=== PATIENT | female | born 1950 | race Caucasian/White ===

== ENCOUNTER 2017-12-28 19:59 | Inpatient (IN) | payer MEDICARE, OTHER ==
[~2017-12-28] VITALS: Ht 160 cm; Wt 85.5 kg
[~2017-12-28 19:59] MED LIST: ACET325 PO; ACIDOPHILUS; ALPR.25; ALPR.5 PO; ARIP30 PO; AZIT500 PO; BELPHEELB PO; BUPR150T2; BUSP15 PO; CALCAVITD; CIPRSO OD; DEXL60CA3; DICL25ER PO; DOCU100 PO; EPIN.3I; ESCI20; FEXO180; FIBE4P; FLUO10; FLUO10 PO; HYDACE5; HYDACE5 PO; HYDCHL25 PO; HYDMOR4 PO; HYOS.375ER; LEVA.63IS INH; LEVO750 PO; LUNESTA; NEUPRO1 EAC1; NITR.4SL; NITR.4SL SL; NITRSPRAY; OMEP20ER; PRAM.125; PRAM.5; PRAM.5 PO; PROM25 PO; RANI150 PO; SIMV10 PO; STOOL SOFTENER50 MG PO; TOCO400 PO; TRAZ50; URSODIOL250 MG PO; VICODIN 5-3001 EACH; VICODIN 5-3001 EACH PO; VIIBRYD10 MG PO; VITAMIN D31000 UNIT PO; Veramyst10 GM NS; ZOLP6.25; ZOLP6.25 PO; Zofran Odt8 MG SL; [UNRECOGNIZED DRUG - REMARK]
[2017-12-28] MEDS ORDERED: PANT20 PO (20:06)
[2017-12-28] MEDS ORDERED: VENL37.5ER PO (20:07)
[2017-12-28 20:13] LABS: BASOPHILS ABSOLUTE AUTO 0.01 K/mm3 (0.00-0.23); BASOPHILS PERCENT AUTO 0 % (0-2); EOSINOPHILS ABSOLUTE AUTO 0.06 K/mm3 (0.00-0.68); EOSINOPHILS PERCENT AUTO 1 % (0-6); Hematocrit 41.1 % (33.0-51.0); Hemoglobin 12.9 g/dL (11.5-16.0); IMMATURE GRAN ABSOLUTE AUTO 0.01 K/mm3 (0.00-0.10); IMMATURE GRAN PERCENT AUTO 0 % (0-1); LYMPHOCYTES ABSOLUTE AUTO 0.89 K/mm3 (0.84-5.20); LYMPHOCYTES PERCENT AUTO 11 % (21-46); MONOCYTES ABSOLUTE AUTO 0.12 K/mm3 (0.16-1.47); MONOCYTES PERCENT AUTO 2 % (4-13); Mean Corpuscular HGB 28.6 pg (26.0-34.0); Mean Corpuscular HGB Conc 31.4 g/dL (31.5-36.5); Mean Corpuscular Volume 91 fL (80-100); Mean Platelet Volume 8.9 fL (9.1-12.4); NEUTROPHILS ABSOLUTE AUTO 7.17 K/mm3 (1.96-9.15); NEUTROPHILS PERCENT AUTO 87 % (41-73); Platelet Count 299 K/mm3 (150-400); RDW Coefficient Variation 12.7 % (11.7-14.2); RDW Standard Deviation 42.3 fL (35.1-46.3); Red Blood Cell Count 4.51 M/mm3 (3.80-5.20); White Blood Cell Count 8.26 K/mm3 (4.00-11.30)
[2017-12-28 20:37] LABS: Alanine Aminotransfer (ALT/SGP 14 U/L (12-78); Albumin, Blood 3.5 g/dL (3.4-5.0); Albumin/Globulin Ratio 0.9 (0.8-1.8); Alk Phos 85 U/L (50-136); Anion Gap 10 mmol/L (6-16); Aspartate Aminotrans (AST/SGOT 13 U/L (12-37); Bilirubin, Total 0.3 mg/dL (0.1-1.0); Blood Urea Nitrogen 8 mg/dL (8-24); Bun/Creatinine Ratio 11.4 (12.0-20.0); CO2, Blood 26 mmol/L (21-32); Calcium, Blood 8.7 mg/dL (8.5-10.1); Chloride, Blood 104 mmol/L (98-108); Glomerular Filtration Rate >60 (60-); Glucose, Blood 108 mg/dL (70-99); Potassium, Blood 3.7 mmol/L (3.5-5.5); Sodium, Blood 140 mmol/L (136-145); Total Protein, Blood 7.5 g/dL (6.4-8.2); Troponin I <0.015 ng/mL (0.000-0.040)
[2017-12-28 21:42] LABS: Source, Urine Voided
[2017-12-28 21:47] LABS: Bilirubin, Urine Neg (Neg); Blood, Urine 1+ (Neg); Glucose Qualitative, Urine Neg (Neg); Ketones, Urine Neg (Neg); Leukocyte Esterase, Urine 2+ (Neg); Nitrite, Urine Neg (Neg); Protein, Urine 1+ (Neg); Urobilinogen, Urine NORM (Normal)
[2017-12-28 21:52] LABS: Appearance, Urine Clear (Clear); Color, Urine Yellow (P-Yellow); Red Blood Cells, Urine 0-2 /hpf (0-2)
[2017-12-28 21:53] LABS: Bacteria Many /hpf; Squamous Epithelial Cells Few /hpf (Few)
[2017-12-28 22:18] LABS: Influenza A Negative (NEGATIVE); Influenza B Negative (NEGATIVE)
[2017-12-29 03:35] LABS: BASOPHILS ABSOLUTE AUTO 0.02 K/mm3 (0.00-0.23); BASOPHILS PERCENT AUTO 0 % (0-2); Hematocrit 31.2 % (33.0-51.0); Hemoglobin 9.8 g/dL (11.5-16.0); LYMPHOCYTES ABSOLUTE AUTO 0.57 K/mm3 (0.84-5.20); LYMPHOCYTES PERCENT AUTO 4 % (21-46); MONOCYTES ABSOLUTE AUTO 0.92 K/mm3 (0.16-1.47); MONOCYTES PERCENT AUTO 6 % (4-13); Mean Corpuscular HGB 28.7 pg (26.0-34.0); Mean Corpuscular HGB Conc 31.4 g/dL (31.5-36.5); Mean Corpuscular Volume 91 fL (80-100); Mean Platelet Volume 9.3 fL (9.1-12.4); Platelet Count 256 K/mm3 (150-400); RDW Coefficient Variation 12.9 % (11.7-14.2); RDW Standard Deviation 42.5 fL (35.1-46.3); Red Blood Cell Count 3.42 M/mm3 (3.80-5.20)
[2017-12-29 03:38] LABS: EOSINOPHILS PERCENT AUTO 0 % (0-6); IMMATURE GRAN ABSOLUTE AUTO 0.08 K/mm3 (0.00-0.10); IMMATURE GRAN PERCENT AUTO 1 % (0-1); NEUTROPHILS ABSOLUTE AUTO 14.31 K/mm3 (1.96-9.15); NEUTROPHILS PERCENT AUTO 90 % (41-73)
[2017-12-29 03:50] LABS: Anion Gap 8 mmol/L (6-16); Blood Urea Nitrogen 10 mg/dL (8-24); CO2, Blood 25 mmol/L (21-32); Calcium, Blood 7.3 mg/dL (8.5-10.1); Chloride, Blood 109 mmol/L (98-108); Creatinine, Blood 0.71 mg/dL (0.40-1.00); Glomerular Filtration Rate >60 (60-); Glucose, Blood 114 mg/dL (70-99); Potassium, Blood 3.9 mmol/L (3.5-5.5); Sodium, Blood 142 mmol/L (136-145)
[2017-12-29 03:52] LABS: BAND PERCENT MAN 24 % (0-8); BASOPHILS PERCENT MAN 0 % (0-2); EOSINOPHILS PERCENT MAN 0 % (0-6); LYMPHOCYTES ABSOLUTE MAN 1.11 K/mm3 (0.84-5.20); LYMPHOCYTES PERCENT MAN 7 % (21-46); MONOCYTES ABSOLUTE MAN 0.31 K/mm3 (0.16-1.47); MONOCYTES PERCENT MAN 2 % (4-13); NEUTROPHILS ABSOLUTE MAN 14.46 K/mm3 (1.96-9.15); SEG NEUTROPHILS PERCENT MAN 67 % (41-73); TOTAL CELLS COUNTED 100
[2017-12-30 12:24] LABS: Vancomycin, Trough 12.8 ug/mL (5.0-10.0)
[2017-12-31 10:54] LABS: Creatinine, Blood 0.67 mg/dL (0.40-1.00)
[2018-01-01 05:55] LABS: BASOPHILS ABSOLUTE AUTO 0.02 K/mm3 (0.00-0.23); BASOPHILS PERCENT AUTO 0 % (0-2); EOSINOPHILS ABSOLUTE AUTO 0.27 K/mm3 (0.00-0.68); EOSINOPHILS PERCENT AUTO 4 % (0-6); Hematocrit 30.5 % (33.0-51.0); Hemoglobin 9.9 g/dL (11.5-16.0); IMMATURE GRAN ABSOLUTE AUTO 0.04 K/mm3 (0.00-0.10); IMMATURE GRAN PERCENT AUTO 1 % (0-1); LYMPHOCYTES ABSOLUTE AUTO 1.35 K/mm3 (0.84-5.20); LYMPHOCYTES PERCENT AUTO 18 % (21-46); MONOCYTES ABSOLUTE AUTO 0.49 K/mm3 (0.16-1.47); MONOCYTES PERCENT AUTO 7 % (4-13); Mean Corpuscular HGB 28.9 pg (26.0-34.0); Mean Corpuscular HGB Conc 32.5 g/dL (31.5-36.5); Mean Corpuscular Volume 89 fL (80-100); Mean Platelet Volume 9.5 fL (9.1-12.4); NEUTROPHILS ABSOLUTE AUTO 5.26 K/mm3 (1.96-9.15); NEUTROPHILS PERCENT AUTO 71 % (41-73); Platelet Count 283 K/mm3 (150-400); RDW Coefficient Variation 12.8 % (11.7-14.2); RDW Standard Deviation 41.9 fL (35.1-46.3); Red Blood Cell Count 3.42 M/mm3 (3.80-5.20); White Blood Cell Count 7.43 K/mm3 (4.00-11.30)
[2018-01-01 06:20] LABS: Alanine Aminotransfer (ALT/SGP 8 U/L (12-78); Albumin, Blood 2.4 g/dL (3.4-5.0); Albumin/Globulin Ratio 0.6 (0.8-1.8); Alk Phos 59 U/L (50-136); Anion Gap 6 mmol/L (6-16); Aspartate Aminotrans (AST/SGOT 12 U/L (12-37); Bilirubin, Total 0.5 mg/dL (0.1-1.0); Blood Urea Nitrogen 5 mg/dL (8-24); Bun/Creatinine Ratio 6.8 (12.0-20.0); CO2, Blood 30 mmol/L (21-32); Calcium, Blood 8.8 mg/dL (8.5-10.1); Chloride, Blood 106 mmol/L (98-108); Creatinine, Blood 0.73 mg/dL (0.40-1.00); Globulin, Blood 3.9 g/dL (2.2-4.0); Glomerular Filtration Rate >60 (60-); Glucose, Blood 86 mg/dL (70-99); Potassium, Blood 3.6 mmol/L (3.5-5.5); Sodium, Blood 142 mmol/L (136-145); Total Protein, Blood 6.3 g/dL (6.4-8.2)
[2018-01-01] MEDS ORDERED: AMOCLA500 PO (11:56)
[2018-08-24] MEDS ORDERED: PRED10 PO (10:18)
[2018-08-24] MEDS ORDERED: DIPH50 PO (10:20)
[2018-08-24] MEDS ORDERED: METO25ER PO (10:20)
== END 2018-01-01 12:46 | disposition home or self-care (01) | DRG 871 ==
LOC: ER 19:59 → MEDS 21:42 → ICUW 21:42 → ERHOLD 21:42 → ICUW 23:38 → MEDS 12-30 17:19 → ENPENDDIS 01-01 11:54 → MEDS 01-01 12:46
PROVIDERS: Hospitalist; Internal Medicine; Pharmacist; Physician Assistant
DX: A41.9 Sepsis, unspecified organism (principal); J18.9 Pneumonia, unspecified organism; I95.9 Hypotension, unspecified; J45.909 Unspecified asthma, uncomplicated; K21.9 Gastro-esophageal reflux disease without esophagitis; G25.81 Restless legs syndrome; F41.9 Anxiety disorder, unspecified; R65.20 Severe sepsis without septic shock; Z88.2 Allergy status to sulfonamides; Z88.8 Allergy status to other drugs, medicaments and biological substances; Z79.899 Other long term (current) drug therapy; Z87.891 Personal history of nicotine dependence
CPT/HCPCS: 36415; 51702; 71046; 80048; 80053; 80202; 81001; 82565; 83605; 83880; 84484; 85025; 87040; 87070; 87086; 87205; 87804; 93005; 93010; 94640; 94760; 96361; 96365; 96375; 99285; C9113; J1170; J1650; J1885; J2405; J2543; J3370; J3480; J7030; J7120

== ENCOUNTER → 2018-01-06 | Outpatient (CLI) | payer MEDICARE, OTHER ==
[~2018-01-06] MED LIST changes: +ALLER-TEC D 5-1 EACH PO; +AMOCLA500 PO; +Augmentin 875-1 EACH PO; +CALCIUM WITH V1 EACH PO; +CEFP200 PO; +Calcium 600 Wi1 EAC3 PO; +DIPH50 PO; +METO25ER PO; +METR500 PO; +ONDA4ODT MM; +PANT20 PO; +PRED10 PO; +PROBIOTIC250 MG PO; +RYTARY ER 23.71 EACH PO; +VENL37.5ER PO; +VENL75ER PO; +Voltaren100 GM TOP; +Xopenex Hfa15 GM INH
== END ==
LOC: LAB EV 18:29
DX: R30.0 Dysuria (principal)
CPT/HCPCS: 87077; 87086; 87186

== ENCOUNTER 2018-01-20 05:34 | Inpatient (IN) | payer MEDICARE, OTHER ==
[~2018-01-20] VITALS: Ht 160 cm; Wt 77.2 kg
[~2018-01-20 05:34] MED LIST changes: -ALLER-TEC D 5-1 EACH PO; -Augmentin 875-1 EACH PO; -CALCIUM WITH V1 EACH PO; -CEFP200 PO; -Calcium 600 Wi1 EAC3 PO; -DIPH50 PO; -METO25ER PO; -METR500 PO; -ONDA4ODT MM; -PRED10 PO; -PROBIOTIC250 MG PO; -RYTARY ER 23.71 EACH PO; -VENL75ER PO; -Voltaren100 GM TOP; -Xopenex Hfa15 GM INH
[2018-01-20 05:59] LABS: BASOPHILS ABSOLUTE AUTO 0.02 K/mm3 (0.00-0.23); BASOPHILS PERCENT AUTO 0 % (0-2); EOSINOPHILS ABSOLUTE AUTO 0.03 K/mm3 (0.00-0.68); EOSINOPHILS PERCENT AUTO 0 % (0-6); Hemoglobin 12.6 g/dL (11.5-16.0); IMMATURE GRAN ABSOLUTE AUTO 0.03 K/mm3 (0.00-0.10); IMMATURE GRAN PERCENT AUTO 0 % (0-1); LYMPHOCYTES ABSOLUTE AUTO 0.56 K/mm3 (0.84-5.20); LYMPHOCYTES PERCENT AUTO 5 % (21-46); MONOCYTES ABSOLUTE AUTO 0.18 K/mm3 (0.16-1.47); MONOCYTES PERCENT AUTO 2 % (4-13); Mean Corpuscular HGB 27.7 pg (26.0-34.0); Mean Corpuscular HGB Conc 31.5 g/dL (31.5-36.5); Mean Corpuscular Volume 88 fL (80-100); Mean Platelet Volume 8.9 fL (9.1-12.4); NEUTROPHILS ABSOLUTE AUTO 10.53 K/mm3 (1.96-9.15); NEUTROPHILS PERCENT AUTO 93 % (41-73); Platelet Count 384 K/mm3 (150-400); RDW Standard Deviation 41.7 fL (35.1-46.3); Red Blood Cell Count 4.55 M/mm3 (3.80-5.20); White Blood Cell Count 11.35 K/mm3 (4.00-11.30)
[2018-01-20 06:17] LABS: Source, Urine Clean Catch
[2018-01-20 06:19] LABS: Bilirubin, Urine Neg (Neg); Blood, Urine 1+ (Neg); Glucose Qualitative, Urine Neg (Neg); Ketones, Urine Neg (Neg); Leukocyte Esterase, Urine 3+ (Neg); Nitrite, Urine Neg (Neg); Protein, Urine 1+ (Neg); Urobilinogen, Urine NORM (Normal)
[2018-01-20 06:23] LABS: Alanine Aminotransfer (ALT/SGP 7 U/L (12-78); Albumin, Blood 3.3 g/dL (3.4-5.0); Albumin/Globulin Ratio 0.8 (0.8-1.8); Alk Phos 77 U/L (50-136); Anion Gap 11 mmol/L (6-16); Aspartate Aminotrans (AST/SGOT 14 U/L (12-37); Bilirubin, Total 0.5 mg/dL (0.1-1.0); Blood Urea Nitrogen 12 mg/dL (8-24); Bun/Creatinine Ratio 19.2 (12.0-20.0); CO2, Blood 23 mmol/L (21-32); Calcium, Blood 8.8 mg/dL (8.5-10.1); Chloride, Blood 103 mmol/L (98-108); Creatinine, Blood 0.63 mg/dL (0.40-1.00); Globulin, Blood 4.2 g/dL (2.2-4.0); Glomerular Filtration Rate >60 (60-); Glucose, Blood 101 mg/dL (70-99); Potassium, Blood 3.6 mmol/L (3.5-5.5); Sodium, Blood 137 mmol/L (136-145); Total Protein, Blood 7.5 g/dL (6.4-8.2); Troponin I <0.015 ng/mL (0.000-0.040)
[2018-01-20 06:27] LABS: Appearance, Urine Clear (Clear); Color, Urine Yellow (P-Yellow)
[2018-01-20] MEDS ORDERED: ONDA4ODT MM (06:27)
[2018-01-20] MEDS ORDERED: PANT20 PO (06:27)
[2018-01-20] MEDS ORDERED: PRAM.5 PO (06:27)
[2018-01-20] MEDS ORDERED: RYTARY ER 23.71 EACH PO (06:28)
[2018-01-20] MEDS ORDERED: VENL75ER PO (06:28)
[2018-01-20] MEDS ORDERED: CALCIUM WITH V1 EACH PO (06:29)
[2018-01-20] MEDS ORDERED: DOCU100 PO (06:29)
[2018-01-20 06:31] LABS: Bacteria Few /hpf; Red Blood Cells, Urine 0-2 /hpf (0-2); Squamous Epithelial Cells Mod /hpf (Few)
[2018-01-20 06:32] LABS: Mucus Light (0-Heavy)
[2018-01-20] MEDS ORDERED: ACET325 PO (06:34)
[2018-01-20] MEDS ORDERED: Xopenex Hfa15 GM INH (06:34)
[2018-01-20] MEDS ORDERED: Voltaren100 GM TOP (06:35)
[2018-01-20] MEDS ORDERED: ALLER-TEC D 5-1 EACH PO (06:37)
[2018-01-20] MEDS ORDERED: VICODIN 5-3001 EACH PO (06:40)
[2018-01-20] MEDS ORDERED: Calcium 600 Wi1 EAC3 PO (12:36)
[2018-01-21 05:22] LABS: Hematocrit 29.6 % (33.0-51.0); Hemoglobin 9.3 g/dL (11.5-16.0); Mean Corpuscular HGB Conc 31.4 g/dL (31.5-36.5); Mean Corpuscular Volume 89 fL (80-100); Mean Platelet Volume 9.4 fL (9.1-12.4); Platelet Count 273 K/mm3 (150-400); RDW Coefficient Variation 13.3 % (11.7-14.2); RDW Standard Deviation 43.4 fL (35.1-46.3); Red Blood Cell Count 3.32 M/mm3 (3.80-5.20); White Blood Cell Count 15.81 K/mm3 (4.00-11.30)
[2018-01-21 05:49] LABS: Anion Gap 7 mmol/L (6-16); Blood Urea Nitrogen 9 mg/dL (8-24); CO2, Blood 27 mmol/L (21-32); Calcium, Blood 8.3 mg/dL (8.5-10.1); Chloride, Blood 107 mmol/L (98-108); Creatinine, Blood 0.75 mg/dL (0.40-1.00); Glomerular Filtration Rate >60 (60-); Glucose, Blood 119 mg/dL (70-99); Potassium, Blood 3.4 mmol/L (3.5-5.5); Sodium, Blood 141 mmol/L (136-145)
[2018-01-22 05:01] LABS: BASOPHILS ABSOLUTE AUTO 0.03 K/mm3 (0.00-0.23); BASOPHILS PERCENT AUTO 0 % (0-2); EOSINOPHILS PERCENT AUTO 2 % (0-6); Hematocrit 30.5 % (33.0-51.0); Hemoglobin 9.9 g/dL (11.5-16.0); IMMATURE GRAN ABSOLUTE AUTO 0.05 K/mm3 (0.00-0.10); IMMATURE GRAN PERCENT AUTO 0 % (0-1); LYMPHOCYTES ABSOLUTE AUTO 1.85 K/mm3 (0.84-5.20); LYMPHOCYTES PERCENT AUTO 14 % (21-46); MONOCYTES ABSOLUTE AUTO 0.96 K/mm3 (0.16-1.47); MONOCYTES PERCENT AUTO 7 % (4-13); Mean Corpuscular HGB 28.5 pg (26.0-34.0); Mean Corpuscular HGB Conc 32.5 g/dL (31.5-36.5); Mean Corpuscular Volume 88 fL (80-100); Mean Platelet Volume 9.2 fL (9.1-12.4); NEUTROPHILS ABSOLUTE AUTO 9.91 K/mm3 (1.96-9.15); NEUTROPHILS PERCENT AUTO 76 % (41-73); Platelet Count 289 K/mm3 (150-400); RDW Coefficient Variation 13.2 % (11.7-14.2); RDW Standard Deviation 42.2 fL (35.1-46.3); Red Blood Cell Count 3.47 M/mm3 (3.80-5.20)
[2018-01-22 05:34] LABS: Anion Gap 7 mmol/L (6-16); Blood Urea Nitrogen 5 mg/dL (8-24); Bun/Creatinine Ratio 7.2 (12.0-20.0); CO2, Blood 26 mmol/L (21-32); Calcium, Blood 8.4 mg/dL (8.5-10.1); Chloride, Blood 107 mmol/L (98-108); Creatinine, Blood 0.69 mg/dL (0.40-1.00); Glomerular Filtration Rate >60 (60-); Glucose, Blood 99 mg/dL (70-99); Potassium, Blood 3.6 mmol/L (3.5-5.5); Sodium, Blood 140 mmol/L (136-145)
[2018-01-23 06:00] LABS: BASOPHILS ABSOLUTE AUTO 0.02 K/mm3 (0.00-0.23); BASOPHILS PERCENT AUTO 0 % (0-2); EOSINOPHILS ABSOLUTE AUTO 0.26 K/mm3 (0.00-0.68); EOSINOPHILS PERCENT AUTO 3 % (0-6); Hematocrit 30.5 % (33.0-51.0); IMMATURE GRAN ABSOLUTE AUTO 0.05 K/mm3 (0.00-0.10); IMMATURE GRAN PERCENT AUTO 1 % (0-1); LYMPHOCYTES ABSOLUTE AUTO 1.58 K/mm3 (0.84-5.20); LYMPHOCYTES PERCENT AUTO 18 % (21-46); MONOCYTES ABSOLUTE AUTO 0.76 K/mm3 (0.16-1.47); MONOCYTES PERCENT AUTO 9 % (4-13); Mean Corpuscular HGB 28.6 pg (26.0-34.0); Mean Corpuscular HGB Conc 32.8 g/dL (31.5-36.5); Mean Corpuscular Volume 87 fL (80-100); Mean Platelet Volume 9.7 fL (9.1-12.4); NEUTROPHILS ABSOLUTE AUTO 6.04 K/mm3 (1.96-9.15); NEUTROPHILS PERCENT AUTO 69 % (41-73); Platelet Count 285 K/mm3 (150-400); RDW Coefficient Variation 12.9 % (11.7-14.2); White Blood Cell Count 8.71 K/mm3 (4.00-11.30)
[2018-01-23 06:27] LABS: Alanine Aminotransfer (ALT/SGP 10 U/L (12-78); Albumin, Blood 2.4 g/dL (3.4-5.0); Albumin/Globulin Ratio 0.6 (0.8-1.8); Alk Phos 59 U/L (50-136); Anion Gap 11 mmol/L (6-16); Aspartate Aminotrans (AST/SGOT 9 U/L (12-37); Bilirubin, Total 0.3 mg/dL (0.1-1.0); Blood Urea Nitrogen 3 mg/dL (8-24); CO2, Blood 24 mmol/L (21-32); Chloride, Blood 108 mmol/L (98-108); Creatinine, Blood 0.75 mg/dL (0.40-1.00); Globulin, Blood 3.8 g/dL (2.2-4.0); Glomerular Filtration Rate >60 (60-); Glucose, Blood 90 mg/dL (70-99); Phosphorus, Blood 2.8 mg/dL (2.5-4.9); Potassium, Blood 3.3 mmol/L (3.5-5.5); Sodium, Blood 143 mmol/L (136-145); Total Protein, Blood 6.2 g/dL (6.4-8.2)
[2018-01-23] MEDS ORDERED: METR500 PO (14:44)
[2018-01-23] MEDS ORDERED: CEFP200 PO (14:44)
[2018-01-23] MEDS ORDERED: PROBIOTIC250 MG PO (14:45)
[2018-08-24] MEDS ORDERED: PRED10 PO (10:18)
[2018-08-24] MEDS ORDERED: DIPH50 PO (10:20)
[2018-08-24] MEDS ORDERED: METO25ER PO (10:20)
== END 2018-01-23 15:32 | disposition home or self-care (01) | DRG 871 ==
LOC: ER 05:34 → MEDS 11:29
PROVIDERS: Emergency Medicine; Hospitalist; Internal Medicine; Internal Medicine Endocrinology, Diabetes & Metabolism
DX: A41.9 Sepsis, unspecified organism (principal); J69.0 Pneumonitis due to inhalation of food and vomit; N39.0 Urinary tract infection, site not specified; K21.9 Gastro-esophageal reflux disease without esophagitis; G25.81 Restless legs syndrome; M79.7 Fibromyalgia; M85.80 Other specified disorders of bone density and structure, unspecified site; Z98.84 Bariatric surgery status; F41.9 Anxiety disorder, unspecified; B96.20 Unspecified Escherichia coli [E. coli] as the cause of diseases classified elsewhere
CPT/HCPCS: 36415; 71046; 80048; 80053; 81001; 83605; 83690; 83735; 84100; 84145; 84484; 85025; 85027; 87040; 87077; 87086; 87186; 87493; 93005; 93010; 94640; 94760; 96361; 96365; 96375; 99285; C9113; J1650; J1956; J2543; J3370; J7030

== ENCOUNTER 2018-02-04 12:38 | Inpatient (IN) | payer MEDICARE, OTHER ==
[~2018-02-04] VITALS: Ht 160 cm; Wt 76.1 kg
[~2018-02-04 12:38] MED LIST changes: +ALLER-TEC D 5-1 EACH PO; +CALCIUM WITH V1 EACH PO; +CEFP200 PO; +Calcium 600 Wi1 EAC3 PO; +METR500 PO; +ONDA4ODT MM; +PROBIOTIC250 MG PO; +RYTARY ER 23.71 EACH PO; +VENL75ER PO; +Voltaren100 GM TOP; +Xopenex Hfa15 GM INH
[2018-02-04 14:08] LABS: BASOPHILS ABSOLUTE AUTO 0.04 K/mm3 (0.00-0.23); BASOPHILS PERCENT AUTO 0 % (0-2); EOSINOPHILS ABSOLUTE AUTO 0.03 K/mm3 (0.00-0.68); EOSINOPHILS PERCENT AUTO 0 % (0-6); Hematocrit 38.4 % (33.0-51.0); Hemoglobin 12.2 g/dL (11.5-16.0); IMMATURE GRAN PERCENT AUTO 1 % (0-1); LYMPHOCYTES ABSOLUTE AUTO 0.57 K/mm3 (0.84-5.20); LYMPHOCYTES PERCENT AUTO 3 % (21-46); MONOCYTES ABSOLUTE AUTO 0.73 K/mm3 (0.16-1.47); MONOCYTES PERCENT AUTO 3 % (4-13); Mean Corpuscular HGB 28.1 pg (26.0-34.0); Mean Corpuscular HGB Conc 31.8 g/dL (31.5-36.5); Mean Corpuscular Volume 89 fL (80-100); Mean Platelet Volume 9.2 fL (9.1-12.4); NEUTROPHILS ABSOLUTE AUTO 20.53 K/mm3 (1.96-9.15); NEUTROPHILS PERCENT AUTO 92 % (41-73); Platelet Count 362 K/mm3 (150-400); RDW Coefficient Variation 13.3 % (11.7-14.2); RDW Standard Deviation 43.2 fL (35.1-46.3); Red Blood Cell Count 4.34 M/mm3 (3.80-5.20)
[2018-02-04 14:22] LABS: Source, Urine Clean Catch
[2018-02-04 14:25] LABS: Bilirubin, Urine Neg (Neg); Blood, Urine 1+ (Neg); Glucose Qualitative, Urine Neg (Neg); Ketones, Urine 1+ (Neg); Leukocyte Esterase, Urine 1+ (Neg); Nitrite, Urine Neg (Neg); Protein, Urine Neg (Neg); Specific Gravity, Urine 1.005 (1.003-1.022); Urobilinogen, Urine NORM (Normal)
[2018-02-04 14:40] LABS: Appearance, Urine Clear (Clear); Color, Urine Yellow (P-Yellow)
[2018-02-04 14:41] LABS: Mucus Light (0-Heavy)
[2018-02-04 14:42] LABS: Bacteria Rare /hpf; Red Blood Cells, Urine 0-2 /hpf (0-2); Squamous Epithelial Cells Few /hpf (Few)
[2018-02-05 05:12] LABS: BASOPHILS ABSOLUTE AUTO 0.02 K/mm3 (0.00-0.23); BASOPHILS PERCENT AUTO 0 % (0-2); EOSINOPHILS ABSOLUTE AUTO 0.22 K/mm3 (0.00-0.68); EOSINOPHILS PERCENT AUTO 2 % (0-6); Hematocrit 32.9 % (33.0-51.0); Hemoglobin 10.2 g/dL (11.5-16.0); IMMATURE GRAN ABSOLUTE AUTO 0.05 K/mm3 (0.00-0.10); IMMATURE GRAN PERCENT AUTO 0 % (0-1); LYMPHOCYTES ABSOLUTE AUTO 1.72 K/mm3 (0.84-5.20); LYMPHOCYTES PERCENT AUTO 13 % (21-46); MONOCYTES ABSOLUTE AUTO 0.53 K/mm3 (0.16-1.47); MONOCYTES PERCENT AUTO 4 % (4-13); Mean Corpuscular Volume 90 fL (80-100); Mean Platelet Volume 9.3 fL (9.1-12.4); NEUTROPHILS ABSOLUTE AUTO 10.61 K/mm3 (1.96-9.15); NEUTROPHILS PERCENT AUTO 81 % (41-73); Platelet Count 317 K/mm3 (150-400); RDW Coefficient Variation 13.2 % (11.7-14.2); RDW Standard Deviation 43.8 fL (35.1-46.3); Red Blood Cell Count 3.64 M/mm3 (3.80-5.20); White Blood Cell Count 13.15 K/mm3 (4.00-11.30)
[2018-02-05 05:51] LABS: Alanine Aminotransfer (ALT/SGP 8 U/L (12-78); Albumin, Blood 2.8 g/dL (3.4-5.0); Albumin/Globulin Ratio 0.7 (0.8-1.8); Alk Phos 61 U/L (50-136); Anion Gap 9 mmol/L (6-16); Aspartate Aminotrans (AST/SGOT 11 U/L (12-37); Bilirubin, Total 0.5 mg/dL (0.1-1.0); Blood Urea Nitrogen 9 mg/dL (8-24); Bun/Creatinine Ratio 13.5 (12.0-20.0); CO2, Blood 24 mmol/L (21-32); Calcium, Blood 8.6 mg/dL (8.5-10.1); Chloride, Blood 106 mmol/L (98-108); Creatinine, Blood 0.67 mg/dL (0.40-1.00); Globulin, Blood 3.9 g/dL (2.2-4.0); Glomerular Filtration Rate >60 (60-); Glucose, Blood 155 mg/dL (70-99); Potassium, Blood 3.5 mmol/L (3.5-5.5); Sodium, Blood 139 mmol/L (136-145); Total Protein, Blood 6.7 g/dL (6.4-8.2)
[2018-02-06] MEDS ORDERED: Augmentin 875-1 EACH PO (10:56)
== END 2018-02-06 11:17 | disposition home or self-care (01) | DRG 179 ==
LOC: ER 12:38 → MEDS 12:39 → ER 15:21 → MEDS 15:21 → ENPENDDIS 02-06 09:50 → MEDS 02-06 11:17
PROVIDERS: Emergency Medicine; Student in an Organized Health Care Education/Training Program
PROC: 3E0234Z Introduction of Serum, Toxoid and Vaccine into Muscle, Percutaneous Approach (ICD-10-PCS; principal; 2018-02-06)
DX: J69.0 Pneumonitis due to inhalation of food and vomit (principal); Z23 Encounter for immunization; K22.0 Achalasia of cardia; K21.9 Gastro-esophageal reflux disease without esophagitis; F41.9 Anxiety disorder, unspecified; I10 Essential (primary) hypertension; G25.81 Restless legs syndrome; Z98.84 Bariatric surgery status; E87.6 Hypokalemia; D72.829 Elevated white blood cell count, unspecified
CPT/HCPCS: 36415; 71045; 71046; 80053; 81001; 83690; 84145; 85025; 87086; 93005; 93010; 96367; 96374; 99285; C1751; C9113; G0378; J0295; J0456; J2543; J3370; J7030; J7050

== ENCOUNTER 2018-09-12 12:48 | Emergency (ER) | payer MEDICARE, OTHER ==
[~2018-09-12] VITALS: Ht 162.6 cm; Wt 77.1 kg
[~2018-09-12 12:48] MED LIST changes: +Augmentin 875-1 EACH PO; +DIPH50 PO; +METO25ER PO; +PRED10 PO
[2018-09-12 14:09] LABS: BASOPHILS ABSOLUTE AUTO 0.05 K/mm3 (0.00-0.23); BASOPHILS PERCENT AUTO 0 % (0-2); EOSINOPHILS ABSOLUTE AUTO 0.14 K/mm3 (0.00-0.68); EOSINOPHILS PERCENT AUTO 1 % (0-6); Hematocrit 38.3 % (33.0-51.0); IMMATURE GRAN ABSOLUTE AUTO 0.04 K/mm3 (0.00-0.10); IMMATURE GRAN PERCENT AUTO 0 % (0-1); LYMPHOCYTES ABSOLUTE AUTO 1.57 K/mm3 (0.84-5.20); LYMPHOCYTES PERCENT AUTO 14 % (21-46); MONOCYTES ABSOLUTE AUTO 0.68 K/mm3 (0.16-1.47); MONOCYTES PERCENT AUTO 6 % (4-13); Mean Corpuscular HGB Conc 31.3 g/dL (31.5-36.5); Mean Corpuscular Volume 93 fL (80-100); Mean Platelet Volume 9.3 fL (9.1-12.4); NEUTROPHILS ABSOLUTE AUTO 8.95 K/mm3 (1.96-9.15); NEUTROPHILS PERCENT AUTO 79 % (41-73); Platelet Count 306 K/mm3 (150-400); RDW Coefficient Variation 13.2 % (11.7-14.2); RDW Standard Deviation 44.7 fL (35.1-46.3); Red Blood Cell Count 4.14 M/mm3 (3.80-5.20); White Blood Cell Count 11.43 K/mm3 (4.00-11.30)
[2018-09-12 14:29] LABS: Alanine Aminotransfer (ALT/SGP 18 U/L (12-78); Albumin, Blood 3.7 g/dL (3.4-5.0); Alk Phos 92 U/L (50-136); Anion Gap 6 mmol/L (6-16); Aspartate Aminotrans (AST/SGOT 16 U/L (12-37); Bilirubin, Total 0.2 mg/dL (0.1-1.0); Blood Urea Nitrogen 11 mg/dL (8-24); Bun/Creatinine Ratio 16.7 (12.0-20.0); CO2, Blood 29 mmol/L (21-32); Calcium, Blood 9.2 mg/dL (8.5-10.1); Chloride, Blood 106 mmol/L (98-108); Creatinine, Blood 0.66 mg/dL (0.40-1.00); Globulin, Blood 3.7 g/dL (2.2-4.0); Glomerular Filtration Rate >60 (60-); Glucose, Blood 87 mg/dL (70-99); Potassium, Blood 3.8 mmol/L (3.5-5.5); Sodium, Blood 141 mmol/L (136-145); Total Protein, Blood 7.4 g/dL (6.4-8.2)
[2018-09-12 14:46] LABS: Source, Urine Clean Catch
[2018-09-12 14:55] LABS: Bilirubin, Urine Neg (Neg); Blood, Urine 2+ (Neg); Glucose Qualitative, Urine Neg (Neg); Ketones, Urine Neg (Neg); Leukocyte Esterase, Urine 2+ (Neg); Nitrite, Urine Pos (Neg); Protein, Urine Neg (Neg); Urobilinogen, Urine NORM (Normal)
[2018-09-12 15:06] LABS: Appearance, Urine Cloudy (Clear); Color, Urine Yellow (P-Yellow); White Blood Cells, Urine 25-50 /hpf (0-5)
[2018-09-12 15:07] LABS: Bacteria Many /hpf; Squamous Epithelial Cells Rare /hpf (Few)
== END 2018-09-12 16:35 | disposition home or self-care (01) ==
LOC: ER 12:48
PROVIDERS: Emergency Medicine
DX: F41.9 Anxiety disorder, unspecified (principal); K21.9 Gastro-esophageal reflux disease without esophagitis; Z88.6 Allergy status to analgesic agent; Z88.2 Allergy status to sulfonamides; Z91.09 Other allergy status, other than to drugs and biological substances; Z91.048 Other nonmedicinal substance allergy status; Z88.8 Allergy status to other drugs, medicaments and biological substances; Z79.899 Other long term (current) drug therapy; Z87.891 Personal history of nicotine dependence
CPT/HCPCS: 36415; 71046; 80053; 81001; 85025; 87077; 87086; 87186; 93005; 93010; 99284-25

== ENCOUNTER → 2018-11-24 | Outpatient (CLI) | payer MEDICARE, OTHER | LOC: LAB SHORT 18:30 → LAB EV 18:30 | DX: N39.0 Urinary tract infection, site not specified (principal) | CPT/HCPCS: 87077; 87086; 87186 ==

== ENCOUNTER 2019-03-11 13:54 | Emergency (ER) | payer MEDICARE, OTHER ==
[~2019-03-11] VITALS: Ht 162.6 cm; Wt 79.4 kg
[2019-03-11 14:47] LABS: Source, Urine Clean Catch
[2019-03-11 14:57] LABS: Appearance, Urine Clear (Clear); Bilirubin, Urine Neg (Neg); Blood, Urine 1+ (Neg); Color, Urine Yellow (P-Yellow); Glucose Qualitative, Urine Neg (Neg); Ketones, Urine Neg (Neg); Leukocyte Esterase, Urine 2+ (Neg); Nitrite, Urine Neg (Neg); Protein, Urine Neg (Neg); Specific Gravity, Urine 1.005 (1.003-1.022); Urobilinogen, Urine NORM (Normal)
[2019-03-11 15:04] LABS: BASOPHILS ABSOLUTE AUTO 0.04 K/mm3 (0.00-0.23); BASOPHILS PERCENT AUTO 0 % (0-2); EOSINOPHILS ABSOLUTE AUTO 0.04 K/mm3 (0.00-0.68); EOSINOPHILS PERCENT AUTO 0 % (0-6); Hematocrit 41.1 % (33.0-51.0); IMMATURE GRAN ABSOLUTE AUTO 0.14 K/mm3 (0.00-0.10); IMMATURE GRAN PERCENT AUTO 1 % (0-1); LYMPHOCYTES ABSOLUTE AUTO 1.27 K/mm3 (0.84-5.20); LYMPHOCYTES PERCENT AUTO 6 % (21-46); MONOCYTES ABSOLUTE AUTO 0.93 K/mm3 (0.16-1.47); MONOCYTES PERCENT AUTO 4 % (4-13); Mean Corpuscular HGB 29.7 pg (26.0-34.0); Mean Corpuscular HGB Conc 31.6 g/dL (31.5-36.5); Mean Corpuscular Volume 94 fL (80-100); Mean Platelet Volume 9.5 fL (9.1-12.4); NEUTROPHILS ABSOLUTE AUTO 19.06 K/mm3 (1.96-9.15); NEUTROPHILS PERCENT AUTO 89 % (41-73); Platelet Count 333 K/mm3 (150-400); RDW Coefficient Variation 12.3 % (11.7-14.2); RDW Standard Deviation 42.8 fL (35.1-46.3); Red Blood Cell Count 4.38 M/mm3 (3.80-5.20); White Blood Cell Count 21.48 K/mm3 (4.00-11.30)
[2019-03-11 15:09] LABS: Bacteria Mod /hpf; Red Blood Cells, Urine 0-2 /hpf (0-2); Squamous Epithelial Cells Few /hpf (Few)
[2019-03-11 15:21] LABS: Alanine Aminotransfer (ALT/SGP 16 U/L (12-78); Albumin, Blood 3.8 g/dL (3.4-5.0); Alk Phos 76 U/L (50-136); Anion Gap 5 mmol/L (6-16); Aspartate Aminotrans (AST/SGOT 16 U/L (12-37); Bilirubin, Total 0.4 mg/dL (0.1-1.0); Blood Urea Nitrogen 12 mg/dL (8-24); Bun/Creatinine Ratio 17.2 (12.0-20.0); CO2, Blood 29 mmol/L (21-32); Calcium, Blood 9.3 mg/dL (8.5-10.1); Chloride, Blood 106 mmol/L (98-108); Globulin, Blood 3.9 g/dL (2.2-4.0); Glomerular Filtration Rate >60 (60-); Glucose, Blood 93 mg/dL (70-99); Potassium, Blood 3.5 mmol/L (3.5-5.5); Sodium, Blood 140 mmol/L (136-145); Total Protein, Blood 7.7 g/dL (6.4-8.2); Troponin I <0.015 ng/mL (0.000-0.040)
[2019-03-11] MEDS ORDERED: Norco 5-325 Ta1 EACH PO (17:36)
[2019-03-11] MEDS ORDERED: Cipro500 MG PO (17:39)
== END 2019-03-11 17:55 | disposition home or self-care (01) ==
LOC: ER 13:54
PROVIDERS: Physician Assistant
DX: K21.9 Gastro-esophageal reflux disease without esophagitis (principal); N39.0 Urinary tract infection, site not specified; F41.9 Anxiety disorder, unspecified; I10 Essential (primary) hypertension; Z87.891 Personal history of nicotine dependence
CPT/HCPCS: 36415; 71046; 76705; 80053; 81001; 84484; 85025; 87077; 87086; 87186; 93005; 93010; 96374; 99284-25; J1170

== ENCOUNTER → 2019-03-25 | Outpatient (CLI) | payer MEDICARE, OTHER ==
[~2019-03-25] MED LIST changes: +Cipro500 MG PO; +Norco 5-325 Ta1 EACH PO
== END ==
LOC: LAB EV 10:04 → LAB SHORT 10:04
DX: N39.0 Urinary tract infection, site not specified (principal)
CPT/HCPCS: 87086

== ENCOUNTER → 2019-04-15 | Outpatient (CLI) | payer MEDICARE, OTHER ==
[~2019-04-15] MED LIST changes: +AMOX50SU PO; +CALCIUM 600 +1 EA11 PO; +DEXILANT30 MG PO; +DEXL60CA3 PO; +Flonase 0.05% N16 GM; +HYDR1TAB94 PO; +ONDA4 PO; +SACC250C PO; +THERA-D2000 UNIT PO; +VERAMYST; +VITAMIN D34000 UNIT PO; +VOLTAREN100 GM TOP; +ZYRTEC10 M2 PO
== END | disposition home or self-care (01) ==
LOC: LAB SHORT 07:47 → LAB 07:47
DX: D48.5 Neoplasm of uncertain behavior of skin (principal); L72.9 Follicular cyst of the skin and subcutaneous tissue, unspecified
CPT/HCPCS: 88304

== ENCOUNTER → 2019-04-19 | Outpatient (CLI) | payer MEDICARE, OTHER | END | disposition home or self-care (01) | LOC: LAB SHORT 11:54 → LAB EV 11:54 | DX: N39.0 Urinary tract infection, site not specified (principal) | CPT/HCPCS: 87086 ==

== ENCOUNTER → 2019-06-21 | Outpatient (CLI) | payer MEDICARE, OTHER | LOC: LAB EV 17:37 → LAB SHORT 17:37 | DX: N39.0 Urinary tract infection, site not specified (principal) | CPT/HCPCS: 87077; 87086; 87186 ==

== ENCOUNTER 2019-07-18 10:13 | Inpatient (IN) | payer MEDICARE, OTHER ==
[~2019-07-18] VITALS: Ht 160 cm; Wt 82.5 kg
[~2019-07-18 10:13] MED LIST changes: -AMOX50SU PO; -CALCIUM 600 +1 EA11 PO; -DEXILANT30 MG PO; -DEXL60CA3 PO; -Flonase 0.05% N16 GM; -HYDR1TAB94 PO; -ONDA4 PO; -SACC250C PO; -THERA-D2000 UNIT PO; -VERAMYST; -VITAMIN D34000 UNIT PO; -VOLTAREN100 GM TOP; -ZYRTEC10 M2 PO
[2019-07-18 10:40] LABS: Calcium, Ionized (POC) 1.07 mmol/L (1.10-1.46); Chloride (POC) 103 mmol/L (98-108); Creatinine (POC) 0.7 mg/dL (0.6-1.0); Glucose (ISTAT POC) 109 mg/dL (70-99); Hemoglobin (POC) 13.3 g/dL (12.0-16.0); Potassium (POC) 3.9 mmol/L (3.5-5.5); Sodium (POC) 138 mmol/L (135-148); Total CO2 (POC) 25 mmol/L (21-32)
[2019-07-18] MEDS ORDERED: PRAM.5 PO (10:42)
[2019-07-18] MEDS ORDERED: ONDA4 PO (10:42)
[2019-07-18] MEDS ORDERED: DEXL60CA3 PO (10:42)
[2019-07-18] MEDS ORDERED: VENL75ER PO (10:43)
[2019-07-18] MEDS ORDERED: ZOLP6.25 PO (10:43)
[2019-07-18] MEDS ORDERED: ALPR.5 PO (10:43)
[2019-07-18] MEDS ORDERED: ACET325 PO (10:44)
[2019-07-18] MEDS ORDERED: LEVA.63IS INH (10:44)
[2019-07-18] MEDS ORDERED: DOCU100 PO (10:44)
[2019-07-18] MEDS ORDERED: DICL25ER PO (10:45)
[2019-07-18] MEDS ORDERED: HYDR1TAB94 PO (10:45)
[2019-07-18 10:50] LABS: BASOPHILS ABSOLUTE AUTO 0.01 K/mm3 (0.00-0.23); BASOPHILS PERCENT AUTO 0 % (0-2); EOSINOPHILS ABSOLUTE AUTO 0.02 K/mm3 (0.00-0.68); EOSINOPHILS PERCENT AUTO 0 % (0-6); Hematocrit 39.2 % (33.0-51.0); Hemoglobin 12.7 g/dL (11.5-16.0); IMMATURE GRAN ABSOLUTE AUTO 0.02 K/mm3 (0.00-0.10); IMMATURE GRAN PERCENT AUTO 0 % (0-1); LYMPHOCYTES ABSOLUTE AUTO 0.57 K/mm3 (0.84-5.20); LYMPHOCYTES PERCENT AUTO 7 % (21-46); MONOCYTES ABSOLUTE AUTO 0.25 K/mm3 (0.16-1.47); MONOCYTES PERCENT AUTO 3 % (4-13); Mean Corpuscular HGB 29.4 pg (26.0-34.0); Mean Corpuscular HGB Conc 32.4 g/dL (31.5-36.5); Mean Corpuscular Volume 91 fL (80-100); Mean Platelet Volume 9.3 fL (9.1-12.4); NEUTROPHILS ABSOLUTE AUTO 7.48 K/mm3 (1.96-9.15); NEUTROPHILS PERCENT AUTO 90 % (41-73); Platelet Count 298 K/mm3 (150-400); RDW Coefficient Variation 12.6 % (11.7-14.2); RDW Standard Deviation 41.9 fL (35.1-46.3); Red Blood Cell Count 4.32 M/mm3 (3.80-5.20); White Blood Cell Count 8.35 K/mm3 (4.00-11.30)
[2019-07-18 11:06] LABS: Alanine Aminotransfer (ALT/SGP 17 U/L (12-78); Albumin, Blood 3.5 g/dL (3.4-5.0); Albumin/Globulin Ratio 0.9 (0.8-1.8); Alk Phos 73 U/L (50-136); Anion Gap 8 mmol/L (6-16); Aspartate Aminotrans (AST/SGOT 16 U/L (12-37); Bilirubin, Total 0.5 mg/dL (0.1-1.0); Blood Urea Nitrogen 9 mg/dL (8-24); Bun/Creatinine Ratio 13.8 (12.0-20.0); CO2, Blood 25 mmol/L (21-32); Calcium, Blood 8.9 mg/dL (8.5-10.1); Chloride, Blood 107 mmol/L (98-108); Creatinine, Blood 0.65 mg/dL (0.40-1.00); Globulin, Blood 3.8 g/dL (2.2-4.0); Glomerular Filtration Rate >60 (60-); Glucose, Blood 108 mg/dL (70-99); Sodium, Blood 140 mmol/L (136-145); Total Protein, Blood 7.3 g/dL (6.4-8.2)
[2019-07-18] MEDS ORDERED: VOLTAREN100 GM TOP (12:21)
[2019-07-18 15:41] LABS: Source, Urine Clean Catch
--- NOTE | 2019-07-18 15:45 | NUR ---
ASSUMED CARE: PT ARRIVED TO THE ICU AT 1500. TRANSFERED TO ICU BED WITH SBA. PT DENIES DIZZYNESS OR LIGHT HEADEDNESS. BLOOD PRESSURE IS NOTED TO BE 118/49. NO ACUTE S/S OF DISTRESS. PT IS A/O X 4 AWAKE AND JOKING WITH STAFF. DR ASHBY IN TO SEE PT AND ASSESS. PT HAD BEEN UP TO THE [facility] [place] [facility] AND HAD A BM PRIOR TO THAT AND BLOOD PRESSURE APPEARS TO BE STABLE. RECEIVED ORDER TO START NS @ 100ML/HR TO ASSIST IN KEEPING THE BLOOD PRESSURE GOING IN THE RIGHT DIRECTION. RECEIVED ORDERS IF PRESSURES ARE STABLE AFTER A COUPLE HOURS THEN PT CAN BE TRANSFERED TO PCU, ALSO TO PLACE PICC LINE IF NEEDED FOR IV ACCESS OF PRESSORS NEEDED.
[2019-07-18 15:53] LABS: Appearance, Urine Clear (Clear); Bilirubin, Urine Neg (Neg); Blood, Urine Neg (Neg); Color, Urine Yellow (P-Yellow); Glucose Qualitative, Urine Neg (Neg); Ketones, Urine Neg (Neg); Leukocyte Esterase, Urine 1+ (Neg); Nitrite, Urine Neg (Neg); Protein, Urine Neg (Neg); Urobilinogen, Urine NORM (Normal)
[2019-07-18 16:12] LABS: Bacteria Few /hpf; Red Blood Cells, Urine 0-2 /hpf (0-2); Squamous Epithelial Cells Few /hpf (Few)
--- NOTE | 2019-07-18 18:30 | NUR ---
PICC LINE: DUE TO LOW MAP AND WIDE PULSE PRESSURE DIFFICULTY WITH VASCULAR ACCESS PICC WAS PLACED. PT GAVE VERBAL CONSENT, SHE HAD ACTUALLY BEEN REQUESTING ONE PRIOR TO RECEIVING THE ORDER FROM DR CHILDS. JOSE SIMEON RN PLACED. LINE VERAFIED BY CHEST X-RAY. PT HAD SOME PAIN IN HER ARM AT INSERSION SITE WITH PRESSURE. PRESSURE DRESSING APPLIED DUE TO INCREASED BLEEDING.
[2019-07-18 19:13] LABS: Alanine Aminotransfer (ALT/SGP 11 U/L (12-78); Albumin, Blood 2.6 g/dL (3.4-5.0); Albumin/Globulin Ratio 0.8 (0.8-1.8); Alk Phos 55 U/L (50-136); Anion Gap 4 mmol/L (6-16); Aspartate Aminotrans (AST/SGOT 17 U/L (12-37); Bilirubin, Total 0.5 mg/dL (0.1-1.0); Blood Urea Nitrogen 11 mg/dL (8-24); CO2, Blood 26 mmol/L (21-32); CPK Creatine Kinase 64 U/L (26-193); Chloride, Blood 113 mmol/L (98-108); Creatine Kinase MB 1.1 ng/mL (0.0-3.6); Creatine Kinase MB Index 1.7 (0.0-4.0); Creatinine, Blood 0.65 mg/dL (0.40-1.00); Globulin, Blood 3.1 g/dL (2.2-4.0); Glomerular Filtration Rate >60 (60-); Glucose, Blood 107 mg/dL (70-99); Magnesium, Blood 1.7 mg/dL (1.6-2.4); Phosphorus, Blood 2.9 mg/dL (2.5-4.9); Potassium, Blood 4.2 mmol/L (3.5-5.5); Sodium, Blood 143 mmol/L (136-145); Total Protein, Blood 5.7 g/dL (6.4-8.2); Troponin I 0.142 ng/mL (0.000-0.040)
--- NOTE | 2019-07-18 19:28 | NUR ---
HOSPITALIST NOTIFIED: RE: RECENT LABS AND EKG RESULTS. UPDATED ON PT C/ RECENT (BUT RESOLVED) CHEST PRESSURE. NEW ORDERS TO REPEAT TROPONIN q8 X2. NO CARDIOLOGY CONSULT AT THIS TIME.
--- NOTE | 2019-07-18 20:22 | NUR ---
CHEST PRESSURE: PT CALLS THIS RN IN TO THE ROOM TO STATE SHE IS HAVING CHEST PRESSURE THAT IS NOT RADIATING, IS A 6/10 PAIN IF APPROX A MEDIUM SIZE DOG IS SITTING ON HER CHEST. NO CHANGES NOTED IN THE HEART RHYTHM OR RATE. CALLED DR PERALTA TO NOTIFY OF WIDE PULSE PRESSURE, LOW DIASTOLIC PRESSURE, CHEST PRESSURE, NOTED OCCATIONAL LOW AMPLATUDE QRS WAVE. RECEIVED NEW ORDERS FOR EKG AND LABS.
--- NOTE | 2019-07-18 20:31 | NUR ---
SHIFT SUMMARY: PT HAS BEEN STABLE SINCE ARIVING FROM ED, BUT HAS BEEN VERY WEAK AND STATES "I FEEL LIKE A PILE OF SHIT". PT UP TO THE BSC TWICE SINCE ARI, HAD SOME DIFFICULTY CLEANING SELF ASSISTANCE WAS PROVIDED. AFTER THE SECOND TIME OF GETTING UP TO THE BSC PT C/O NAUSEA AND APPEARS TO BE VERY FATIGUED. C/O CHEST PRESSURE THAT WAS REPORTED TO DR PERALTA. PICC LINE PLACED. REPORT GIVEN TO ONCOMING RN. SEE PREVIOUS NOTES FOR MORE DETAIL OF CHEST PRESSURE, PICC PLACEMENT AND ARIVAL TO THE UNIT.
--- NOTE | 2019-07-18 20:56 | NUR ---
START OF SHIFT: BEDSIDE REPORT FROM ALBER OSEI. PT, AT THAT TIME, WAS UP TO BSC WITH REPORTED PREVIOUS CHEST PRESSURE RESOLVED. EKG WAS DONE. BP WITH MAPS >60. PT WITH NO COMPLAINTS OTHER THAN FEELING REALLY TIRED AND WANTING TO SLEEP. PT FALLING ASLEEP DURING INITIAL ASSESSMENT THEN STATED WANTED TO BE LEFT ALONE TO NAP FOR A FEW HOURS BEFORE HAVING TO ANSWER ANYMORE QUESTIONS. PT ORIENTED, SPEAKING FULL SENTENCES SPEAKING TO FAMILY ON HER CELL PHONE APPROPRIATELY. PT TEMPERATURE 99.1. PT COVERED WITH SHEET ONCE INTO BED. PT ASSISTED WITH OTHER REQUESTS PRIOR TO FALLING ASLEEP. CALL LIGHT WITHIN REACH. WILL CONTINUE TO MONITOR.
--- NOTE | 2019-07-18 21:18 | NUR ---
HOSPITALIST NOTIFIED: PT WITH MORE FREQUENT EPISODES OF BIGEMINY. HOSPITILIST UPDATED AND GIVEN e' VALUES FROM LAST BLOOD DRAW. NEW ORDER GIVEN TO ADMINISTER MAGNESIUM IVPB 1g X1 NOW.
--- NOTE | 2019-07-18 22:52 | NUR ---
PT UP TO BSC C/ ASSIST, TOLERATED WELL. PT C/ NO COMPLAINTS. NOC ADL'S PROVIDED. PT PLEASANT AND APPRCIATIVE. CALL LIGHT WITHIN REACH.
[2019-07-19 01:34] LABS: BASOPHILS ABSOLUTE AUTO 0.03 K/mm3 (0.00-0.23); BASOPHILS PERCENT AUTO 0 % (0-2); EOSINOPHILS PERCENT AUTO 1 % (0-6); Hemoglobin 9.9 g/dL (11.5-16.0); IMMATURE GRAN ABSOLUTE AUTO 0.08 K/mm3 (0.00-0.10); IMMATURE GRAN PERCENT AUTO 1 % (0-1); LYMPHOCYTES ABSOLUTE AUTO 1.55 K/mm3 (0.84-5.20); LYMPHOCYTES PERCENT AUTO 10 % (21-46); MONOCYTES ABSOLUTE AUTO 0.97 K/mm3 (0.16-1.47); MONOCYTES PERCENT AUTO 6 % (4-13); Mean Corpuscular HGB 29.9 pg (26.0-34.0); Mean Corpuscular HGB Conc 31.9 g/dL (31.5-36.5); Mean Platelet Volume 9.5 fL (9.1-12.4); NEUTROPHILS ABSOLUTE AUTO 12.71 K/mm3 (1.96-9.15); NEUTROPHILS PERCENT AUTO 82 % (41-73); Platelet Count 244 K/mm3 (150-400); RDW Standard Deviation 44.7 fL (35.1-46.3); Red Blood Cell Count 3.31 M/mm3 (3.80-5.20); White Blood Cell Count 15.44 K/mm3 (4.00-11.30)
[2019-07-19 01:35] LABS: Mean Corpuscular Volume 94 fL (80-100)
[2019-07-19 01:58] LABS: Alanine Aminotransfer (ALT/SGP 12 U/L (12-78); Albumin, Blood 2.6 g/dL (3.4-5.0); Albumin/Globulin Ratio 0.8 (0.8-1.8); Alk Phos 55 U/L (50-136); Anion Gap 6 mmol/L (6-16); Aspartate Aminotrans (AST/SGOT 13 U/L (12-37); Bilirubin, Total 0.6 mg/dL (0.1-1.0); Blood Urea Nitrogen 11 mg/dL (8-24); Bun/Creatinine Ratio 16.8 (12.0-20.0); CO2, Blood 26 mmol/L (21-32); Calcium, Blood 8.1 mg/dL (8.5-10.1); Chloride, Blood 111 mmol/L (98-108); Creatinine, Blood 0.65 mg/dL (0.40-1.00); Globulin, Blood 3.2 g/dL (2.2-4.0); Glomerular Filtration Rate >60 (60-); Glucose, Blood 102 mg/dL (70-99); Magnesium, Blood 2.2 mg/dL (1.6-2.4); Phosphorus, Blood 2.7 mg/dL (2.5-4.9); Potassium, Blood 3.8 mmol/L (3.5-5.5); Sodium, Blood 143 mmol/L (136-145); Total Protein, Blood 5.8 g/dL (6.4-8.2)
--- NOTE | 2019-07-19 02:26 | NUR ---
PT STATES ILL TWO DAYS AGO WITH DIARRHEA. PT CURRENTLY C/O NAUSEA AND FEELING OF DIARRHEA. PT WITH ONE SOFT BM 15 MINUTES AGO AND CURRENTLY FEELING THE NEED TO GO AGAIN. PT STATES, "I JUST DON'T FEEL GOOD". PT REASSURED RE: CURRENT RHYTHM NOT THAT OF WHEN PT ARRIVED. PT WITH SECOND BM LARGE SOFT BROWN. PT ASSISTED BACK INTO BED. FAN PROVIDED. CALL LIGHT [employer] REACH. WILL CONTINUE TO MONITOR.
--- NOTE | 2019-07-19 07:30 | NUR ---
ASSUMED CARE OF PATIENT; SEE ASSESSMENT CHARTING. LUNGS CLEAR BUT FINE CRACKLES NOTED IN BASES; REDUCE WITH COUGHING AND DEEP BREATHING. FLUTTER VALVE AND INCENTIVE SPIROMETER AT BEDSIDE TABLE; PATIENT USING REGULARLY WITHOUT NEED FOR REMINDERS. OOB, TO BSC, WITH 1 PERSON STANDBY ASSIST. MODERATE AMOUNTS OF URINE WITH LOOSE/SOFT BM; MODERATE TO LARGE. IV, TO LFOREARM SLIGHTLY TENDER; NO REDNESS OR SWELLING; DC'D, BY RN, D/T HAS A NEW PICC LINE (PLACED 07/18/18). WILL CHANGE PICC DRESSING LATER TODAY. HANDS SWOLLEN WELL ANKLES; ENCOURAGED MOTION OF EXTREMITIES.
--- NOTE | 2019-07-19 08:15 | NUR ---
DR. Zak GRISSOM HERE; TO CHANGE PATIENT TO MED. FLOOR STATUS WITHOUT TELEMETRY. OVERALL STATUS IMPROVED. PLANS TO ORDER AN ESOPHAGRAM TO F/U ON DIGESTION ISSUES (CHRONIC); CONCERNED PATIENT ASPIRATING, AT HOME.
--- NOTE | 2019-07-19 09:53 | NUR ---
Pt says she isn't feeling well at this time and just was giving meds to help with her nausea. Would like a shower later today if she starts to feel better.
--- NOTE | 2019-07-19 11:07 | NUR ---
Echocardiogram completed.
--- NOTE | 2019-07-19 15:00 | NUR ---
TO RADIOLOGY FOR ESOPHAGRAM; ESCORTED BY [employer]. VIA W/C.
--- NOTE | 2019-07-19 15:45 | NUR ---
RETURNED FROM RADIOLOGY DEPT.; TOLERATED PROCEDURE WELL.
--- NOTE | 2019-07-19 17:15 | NUR ---
DAUGHTER IN FOR VISIT; BROUGHT HOME-MADE PEA SOUP FOR PATIENT. NO NAUSEA AT PRESENT; REMAINS WITHOUT C/O. MED. FLOOR STATUS WITHOUT TELEMETRY.
--- NOTE | 2019-07-19 18:15 | NUR ---
SUMMARY: ASSISTED OOB TO BSC; HAD SOFT/PASTY TO [place] COLORED STOOL (?BARIUM) AND SOME URINE. APPETITE REMAINS VERY LIMITED; SIPS OF SOUPS, CLEAR FLUIDS AND OCCASIONALLY SOMETHING SOLID (BREAD/APPLESAUCE). ZOFRAN IN AM AFTER MORNING MEDS; NO FURTHER NAUSEA/VOMITING. VERY PLEASANT AND COOPERATIVE; USING I.S. AND FLUTTER VALVE REGULARLY; NON-PRODUCTIVE COUGH AND LUNGS CLEAR. MILD SWELLING OF ANKLES AND 1+ EDEMA TO HANDS/FINGERS. MONITOR OFF; PATIENT MED. FLOOR STATUS WITHOUT TELEMETRY; NO BEDS AVAILABLE ON MED. FLOOR YET. WILL REPORT TO ONCOMING RN.
--- NOTE | 2019-07-19 20:08 | NUR ---
ASSUME CARE: REPORT RECIEVED FROM FLAVIO OFF GOING RN. MEDICAL FLOOR STATUS. UP TO BSC WITH MINIMAL STANDBY ASSIST GAIT STEADY. LUNG SOUNDS CLEAR RESPIRATIONS REGULAR AND EASY. SPOT CHACK SPO2 95%. ABDOMEN SOFT WITH BOWEL SOUNDS FOUR QUADS. VOIDS CLEAR SRINI URINE WITHOUT DIFFICULTY. PULSES PRESENT NO EDEMA NOTED. DENIES DISCOMFORT. CONTINUE TO MONITOR AND REPORT CHANGE IN PATIENT CONDITION %
[2019-07-20 05:07] LABS: BASOPHILS ABSOLUTE AUTO 0.02 K/mm3 (0.00-0.23); BASOPHILS PERCENT AUTO 0 % (0-2); EOSINOPHILS ABSOLUTE AUTO 0.21 K/mm3 (0.00-0.68); EOSINOPHILS PERCENT AUTO 2 % (0-6); Hematocrit 29.7 % (33.0-51.0); Hemoglobin 9.5 g/dL (11.5-16.0); IMMATURE GRAN ABSOLUTE AUTO 0.03 K/mm3 (0.00-0.10); IMMATURE GRAN PERCENT AUTO 0 % (0-1); LYMPHOCYTES ABSOLUTE AUTO 1.75 K/mm3 (0.84-5.20); LYMPHOCYTES PERCENT AUTO 17 % (21-46); MONOCYTES ABSOLUTE AUTO 0.66 K/mm3 (0.16-1.47); MONOCYTES PERCENT AUTO 6 % (4-13); Mean Corpuscular HGB 29.1 pg (26.0-34.0); Mean Platelet Volume 9.8 fL (9.1-12.4); NEUTROPHILS ABSOLUTE AUTO 7.72 K/mm3 (1.96-9.15); NEUTROPHILS PERCENT AUTO 74 % (41-73); Platelet Count 214 K/mm3 (150-400); RDW Coefficient Variation 12.6 % (11.7-14.2); RDW Standard Deviation 41.4 fL (35.1-46.3); Red Blood Cell Count 3.27 M/mm3 (3.80-5.20); White Blood Cell Count 10.39 K/mm3 (4.00-11.30)
[2019-07-20 05:28] LABS: Albumin, Blood 2.8 g/dL (3.4-5.0); Anion Gap 4 mmol/L (6-16); Blood Urea Nitrogen 8 mg/dL (8-24); Bun/Creatinine Ratio 13.1 (12.0-20.0); CO2, Blood 28 mmol/L (21-32); Calcium, Blood 8.4 mg/dL (8.5-10.1); Chloride, Blood 108 mmol/L (98-108); Creatinine, Blood 0.61 mg/dL (0.40-1.00); Glomerular Filtration Rate >60 (60-); Glucose, Blood 97 mg/dL (70-99); Phosphorus, Blood 2.5 mg/dL (2.5-4.9); Potassium, Blood 3.5 mmol/L (3.5-5.5); Sodium, Blood 140 mmol/L (136-145)
[2019-07-20 05:36] LABS: Mean Corpuscular Volume 91 fL (80-100)
--- NOTE | 2019-07-20 05:59 | NUR ---
SHIFT SUMMARY : RESTS QUIETLY WHEN UNDISTURBED. GAIT STEADY WITH MINIMAL STANDBY ASSIST TO BSC.VOIDS SRINI URINE LUNG SOUNDS CLEAR RESPIRATIONS REGULAR AND EASY, ABDOMEN SOFT WITH BOWEL SOUNDS FOUR QUADS. CONTINUE TO MONITOR AND REPORT CHANGE IN PATINET CONDITION. HAS CO HEADACHE THIS SHIFT WITH RELIEF FROM TYLENOL.
--- NOTE | 2019-07-20 07:20 | NUR ---
START OF SHIFT NOTE: RECEIVED REPORT FROM FARNAZ BOX, ASSUMED CARE, PATIENT IS AWAKE, ALERT AND ORIENTED, MEDICAL STATUS, NO TELEMETRY, VSS, AFEBRILE, DENIES PAIN, INDEPENDENT IN ROOM, PICC LINE IN SILVIO, S/L AT THIS TIME, ALL THREE LUMENS FLUSH WELL AND DRAW BACK WITHOUT ANY PROBLEMS, LUNG SOUNDS CLEAR, BOWEL TONES PRESENT AND HYPOACTIVE, UP TO BSC TO URINATE, POSSIBLY DISCHARGE TO HOME TODAY, CALL LIGHT IN REACH, WILL CONTINUE TO MONITOR.
--- NOTE | 2019-07-20 09:30 | NUR ---
DR. GRISSOM IN TO SEE PATIENT, DISCHARGED TO HOME.
--- NOTE | 2019-07-20 14:09 | NUR ---
PATIENT RESTING COMFORTABLY IN BED, EYES CLOSED, CALL LIGHT IN REACH, WILL CONTINUE TO MONITOR.
--- NOTE | 2019-07-20 15:08 | NUR ---
REPORT CALLED TO FARNAZ AL, ON MEDICAL FLOOR, WILL TRANSFER PATIENT VIA WHEELCHAIR.
--- NOTE | 2019-07-20 16:07 | NUR ---
ICU TRANSFER- PT ARRIVED TO ROOM 333 VIA W/C FROM ICU AT 1515. PT INDEP INTO BED. PT DENIES ANY PAIN OR OTHER COMLAINTS AT THIS TIME. ZAHIDA CID, ON RA. HRR. PICC SILVIO. PT ORIENTED TO ROOM AND CALL SYSTEM. CALL LIGHT IN REACH.
--- NOTE | 2019-07-20 16:59 | NUR ---
SHIFT SUMMARY- ICU TRANSFER THIS AFTERNOON. PT A/OX4, INDEP IN ROOM. PT DENIES ANY CHEST PAIN BUT DOES REPORT MUSCLE TIGHTNESS TO RIGHT SIDE OF NECK. LS CLEAR, ON RA. HRR. VSS. NO ACUTE CHANGES SINCE ARRIVAL TO FLOOR. POSSIBLE D/C HOME TOMORROW.
--- NOTE | 2019-07-20 19:36 | NUR ---
ASSUMED CARE OF PATIENT, PATIENT DANGLING AT BEDSIDE, AO4, INDEPENDENT IN THE ROOM. PT HAVING SOME MUSCLE SORENESS IN HER RIGHT NECK AND GIVEN TYLENOL PER EMAR. RESP EVEN AND UNLABORED. BED LOW AND LOCKED. CALL [place]NS[place] WITHIN REACH.
[2019-07-21 05:36] LABS: Albumin, Blood 2.9 g/dL (3.4-5.0); Anion Gap 6 mmol/L (6-16); Blood Urea Nitrogen 5 mg/dL (8-24); Bun/Creatinine Ratio 8.4 (12.0-20.0); CO2, Blood 29 mmol/L (21-32); Calcium, Blood 8.4 mg/dL (8.5-10.1); Chloride, Blood 107 mmol/L (98-108); Glomerular Filtration Rate >60 (60-); Glucose, Blood 91 mg/dL (70-99); Phosphorus, Blood 2.8 mg/dL (2.5-4.9); Potassium, Blood 3.5 mmol/L (3.5-5.5); Sodium, Blood 142 mmol/L (136-145)
[2019-07-21 06:19] LABS: BASOPHILS ABSOLUTE AUTO 0.03 K/mm3 (0.00-0.23); BASOPHILS PERCENT AUTO 0 % (0-2); EOSINOPHILS PERCENT AUTO 3 % (0-6); Hematocrit 30.1 % (33.0-51.0); Hemoglobin 9.7 g/dL (11.5-16.0); IMMATURE GRAN ABSOLUTE AUTO 0.04 K/mm3 (0.00-0.10); IMMATURE GRAN PERCENT AUTO 1 % (0-1); LYMPHOCYTES ABSOLUTE AUTO 1.24 K/mm3 (0.84-5.20); LYMPHOCYTES PERCENT AUTO 17 % (21-46); MONOCYTES ABSOLUTE AUTO 0.61 K/mm3 (0.16-1.47); MONOCYTES PERCENT AUTO 8 % (4-13); Mean Corpuscular HGB 29.3 pg (26.0-34.0); Mean Corpuscular HGB Conc 32.2 g/dL (31.5-36.5); Mean Corpuscular Volume 91 fL (80-100); Mean Platelet Volume 9.9 fL (9.1-12.4); NEUTROPHILS PERCENT AUTO 72 % (41-73); Platelet Count 235 K/mm3 (150-400); RDW Coefficient Variation 12.5 % (11.7-14.2); RDW Standard Deviation 41.2 fL (35.1-46.3); Red Blood Cell Count 3.31 M/mm3 (3.80-5.20); White Blood Cell Count 7.42 K/mm3 (4.00-11.30)
[2019-07-21] MEDS ORDERED: AMOX50SU PO (09:25)
--- NOTE | 2019-07-21 11:12 | NUR ---
PT DISCHARGED PT DISCHARGED IN STABLE CONDITION WITH VSS. PT EDUCATED ON DC INSTRUCTIONS & FOLLOW UP APPOINTMENTS. PT WHEELED OUT BY AIDE & PICKED UP BY . PT PICC REMOVED BY TEO Segundo RN.
== END 2019-07-21 10:40 | disposition home or self-care (01) | DRG 871 ==
LOC: ER 10:13 → PCU 12:14 → ICUE 14:32 → MEDS 07-20 15:15 → ENPENDDIS 07-21 09:05 → MEDS 07-21 10:40
PROVIDERS: Emergency Medicine; Family Medicine; Internal Medicine; ADMIT Hospitalist
PROC: 02HV33Z Insertion of Infusion Device into Superior Vena Cava, Percutaneous Approach (ICD-10-PCS; principal; 2019-07-18)
PROC: 4A02X4A Measurement of Cardiac Electrical Activity, Guidance, External Approach (ICD-10-PCS; 2019-07-18)
DX: A41.9 Sepsis, unspecified organism (principal); J69.0 Pneumonitis due to inhalation of food and vomit; R65.20 Severe sepsis without septic shock; I48.91 Unspecified atrial fibrillation; K22.0 Achalasia of cardia; I10 Essential (primary) hypertension; I27.20 Pulmonary hypertension, unspecified; G89.4 Chronic pain syndrome; G47.33 Obstructive sleep apnea (adult) (pediatric); K21.9 Gastro-esophageal reflux disease without esophagitis; F41.9 Anxiety disorder, unspecified; M79.7 Fibromyalgia; G25.81 Restless legs syndrome; Z98.84 Bariatric surgery status; Z88.6 Allergy status to analgesic agent; Z88.2 Allergy status to sulfonamides; Z88.8 Allergy status to other drugs, medicaments and biological substances; Z79.899 Other long term (current) drug therapy; Z87.891 Personal history of nicotine dependence
CPT/HCPCS: 36415; 36569; 71045; 74220; 80047; 80053; 80069; 81001; 82330; 82550; 82553; 83605; 83735; 83880; 84100; 84484; 85014; 85025; 87040; 87070; 87086; 87205; 93005; 93010; 93306; 94640; 94667; 94760; 96361; 96365; 96367; 96375; 99285-25; A9270; C1751; C1769; J0456; J0696; J1650; J3475; J7030; J7040; J7050

== ENCOUNTER 2019-08-06 10:51 | Observation (INO) | payer MEDICARE, OTHER ==
[~2019-08-06] VITALS: Ht 162.6 cm; Wt 80.5 kg
[~2019-08-06 10:51] MED LIST changes: +AMOX50SU PO; +DEXL60CA3 PO; +HYDR1TAB94 PO; +ONDA4 PO; +VOLTAREN100 GM TOP
[2019-08-06 14:27] LABS: BASOPHILS ABSOLUTE AUTO 0.02 K/mm3 (0.00-0.23); BASOPHILS PERCENT AUTO 0 % (0-2); EOSINOPHILS ABSOLUTE AUTO 0.02 K/mm3 (0.00-0.68); EOSINOPHILS PERCENT AUTO 0 % (0-6); Hematocrit 36.7 % (33.0-51.0); Hemoglobin 11.8 g/dL (11.5-16.0); IMMATURE GRAN ABSOLUTE AUTO 0.05 K/mm3 (0.00-0.10); IMMATURE GRAN PERCENT AUTO 0 % (0-1); LYMPHOCYTES ABSOLUTE AUTO 0.91 K/mm3 (0.84-5.20); LYMPHOCYTES PERCENT AUTO 6 % (21-46); MONOCYTES ABSOLUTE AUTO 0.81 K/mm3 (0.16-1.47); MONOCYTES PERCENT AUTO 5 % (4-13); Mean Corpuscular HGB 29.6 pg (26.0-34.0); Mean Corpuscular HGB Conc 32.2 g/dL (31.5-36.5); Mean Corpuscular Volume 92 fL (80-100); Mean Platelet Volume 9.8 fL (9.1-12.4); NEUTROPHILS ABSOLUTE AUTO 13.48 K/mm3 (1.96-9.15); NEUTROPHILS PERCENT AUTO 88 % (41-73); Platelet Count 307 K/mm3 (150-400); RDW Coefficient Variation 12.7 % (11.7-14.2); RDW Standard Deviation 42.7 fL (35.1-46.3); Red Blood Cell Count 3.98 M/mm3 (3.80-5.20); White Blood Cell Count 15.29 K/mm3 (4.00-11.30)
[2019-08-06 14:40] LABS: Alanine Aminotransfer (ALT/SGP 15 U/L (12-78); Albumin, Blood 3.6 g/dL (3.4-5.0); Albumin/Globulin Ratio 0.9 (0.8-1.8); Alk Phos 73 U/L (50-136); Anion Gap 5 mmol/L (6-16); Aspartate Aminotrans (AST/SGOT 13 U/L (12-37); Bilirubin, Total 0.8 mg/dL (0.1-1.0); Blood Urea Nitrogen 11 mg/dL (8-24); Bun/Creatinine Ratio 16.3 (12.0-20.0); CO2, Blood 28 mmol/L (21-32); Calcium, Blood 9.1 mg/dL (8.5-10.1); Chloride, Blood 106 mmol/L (98-108); Creatinine, Blood 0.68 mg/dL (0.40-1.00); Globulin, Blood 3.8 g/dL (2.2-4.0); Glomerular Filtration Rate >60 (60-); Glucose, Blood 101 mg/dL (70-99); Potassium, Blood 3.8 mmol/L (3.5-5.5); Sodium, Blood 139 mmol/L (136-145); Total Protein, Blood 7.4 g/dL (6.4-8.2)
[2019-08-06] MEDS ORDERED: THERA-D2000 UNIT PO (15:07)
[2019-08-06] MEDS ORDERED: ACET325 PO (15:08)
[2019-08-06] MEDS ORDERED: DEXILANT30 MG PO (15:08)
--- NOTE | 2019-08-06 17:06 | NUR ---
TRANSFER NOTE RECEIVED HANDOFF FROM ED NURSE YANICK. PT TRANSFERED TO MEDICAL FLOOR WNL. PT INSTRUCTED ON USING THE CALL LIGHT.
--- NOTE | 2019-08-06 18:16 | NUR ---
SHIFT SUMMARY PT ADMITTED FROM ER TODAY. I DID CALL NIGHT HOSPITALIST RE: MIRAPEX (PT STATED RESTLESS LEGS WERE SEVERELY BOTHERING HER). HOSPITALIST APPROVED AN EARLIER DOSE, PHARMACY COMPLIED AND SENT IT. IV FLUIDS DC'D. PT IS INDEPENDENT IN THE ROOM. ROOM AIR.
--- NOTE | 2019-08-07 03:12 | NUR ---
pt has difficult venous access, she said it took 9 attempts to establish perif. IV access. Secured saline lock with dov
[2019-08-07 05:20] LABS: BASOPHILS ABSOLUTE AUTO 0.04 K/mm3 (0.00-0.23); BASOPHILS PERCENT AUTO 0 % (0-2); EOSINOPHILS ABSOLUTE AUTO 0.16 K/mm3 (0.00-0.68); EOSINOPHILS PERCENT AUTO 2 % (0-6); Hematocrit 35.3 % (33.0-51.0); Hemoglobin 10.8 g/dL (11.5-16.0); IMMATURE GRAN ABSOLUTE AUTO 0.03 K/mm3 (0.00-0.10); IMMATURE GRAN PERCENT AUTO 0 % (0-1); LYMPHOCYTES ABSOLUTE AUTO 1.56 K/mm3 (0.84-5.20); LYMPHOCYTES PERCENT AUTO 16 % (21-46); MONOCYTES ABSOLUTE AUTO 0.66 K/mm3 (0.16-1.47); MONOCYTES PERCENT AUTO 7 % (4-13); Mean Corpuscular HGB 28.3 pg (26.0-34.0); Mean Corpuscular HGB Conc 30.6 g/dL (31.5-36.5); Mean Corpuscular Volume 92 fL (80-100); Mean Platelet Volume 9.6 fL (9.1-12.4); NEUTROPHILS ABSOLUTE AUTO 7.41 K/mm3 (1.96-9.15); NEUTROPHILS PERCENT AUTO 75 % (41-73); Platelet Count 269 K/mm3 (150-400); RDW Coefficient Variation 12.8 % (11.7-14.2); Red Blood Cell Count 3.82 M/mm3 (3.80-5.20); White Blood Cell Count 9.86 K/mm3 (4.00-11.30)
[2019-08-07 05:54] LABS: Alanine Aminotransfer (ALT/SGP 11 U/L (12-78); Albumin, Blood 3.2 g/dL (3.4-5.0); Albumin/Globulin Ratio 0.9 (0.8-1.8); Alk Phos 68 U/L (50-136); Anion Gap 4 mmol/L (6-16); Aspartate Aminotrans (AST/SGOT 12 U/L (12-37); Bilirubin, Total 0.6 mg/dL (0.1-1.0); Blood Urea Nitrogen 10 mg/dL (8-24); Bun/Creatinine Ratio 14.7 (12.0-20.0); CO2, Blood 26 mmol/L (21-32); Calcium, Blood 8.7 mg/dL (8.5-10.1); Chloride, Blood 109 mmol/L (98-108); Creatinine, Blood 0.68 mg/dL (0.40-1.00); Globulin, Blood 3.7 g/dL (2.2-4.0); Glomerular Filtration Rate >60 (60-); Glucose, Blood 107 mg/dL (70-99); Potassium, Blood 3.8 mmol/L (3.5-5.5); Sodium, Blood 139 mmol/L (136-145); Total Protein, Blood 6.9 g/dL (6.4-8.2)
--- NOTE | 2019-08-07 06:02 | NUR ---
PT with recent sepsis from aspiration pneumonia has been on room air all night, WBC WNL this AM. She has chronic problem with lower esoph spincter and see's GI specialist [facility] next appt sched SEP. HX of multiple surgeries including gastric bypass 2016 Bessy [facility] Y and Rt eye detached retina repair 2017. alert and pleasant, PT has several bowel movements after antibiotic therapy to tx rt middle lobe pneumonia. No fevers over night. Educational materials provided on aspiration pneumonia and preventing aspiration. also discussed potentially requesting sooner appt at [facility] to see specialist who follows her condition that causes intermittant aspiration. On tele monitor SR or sinus lm with occ PVCS.
--- NOTE | 2019-08-07 11:46 | NUR ---
PT LEFT UNIT AT 1131 BY WHEELCHAIR. PT MET HER OUT FRONT WITH PERSONAL VEHICLE
== END 2019-08-07 11:34 | disposition home or self-care (01) ==
LOC: ER 10:51 → MEDS 10:52 → ENPENDDIS 08-07 10:54 → MEDS 08-07 11:34
PROVIDERS: Emergency Medicine; ADMIT Internal Medicine Gastroenterology
DX: T17.920A Food in respiratory tract, part unspecified causing asphyxiation, initial encounter (principal); K22.0 Achalasia of cardia; Z88.2 Allergy status to sulfonamides; Z91.041 Radiographic dye allergy status; Z87.891 Personal history of nicotine dependence; Z98.84 Bariatric surgery status
CPT/HCPCS: 36415; 71046; 80053; 83605; 84145; 85025; 87040; 93005; 93010; 96365; 96367; 96375; 99285-25; A9270; G0378; J1956; J2405; J2543; J7030

== ENCOUNTER 2019-08-22 09:02 | Inpatient (IN) | payer MEDICARE, OTHER ==
[~2019-08-22] VITALS: Ht 162.6 cm; Wt 77.9 kg
[~2019-08-22 09:02] MED LIST changes: +DEXILANT30 MG PO; +THERA-D2000 UNIT PO
[2019-08-22 09:31] LABS: BASOPHILS ABSOLUTE AUTO 0.03 K/mm3 (0.00-0.23); BASOPHILS PERCENT AUTO 0 % (0-2); EOSINOPHILS ABSOLUTE AUTO 0.04 K/mm3 (0.00-0.68); EOSINOPHILS PERCENT AUTO 0 % (0-6); Hematocrit 37.4 % (33.0-51.0); Hemoglobin 11.8 g/dL (11.5-16.0); IMMATURE GRAN ABSOLUTE AUTO 0.08 K/mm3 (0.00-0.10); IMMATURE GRAN PERCENT AUTO 0 % (0-1); LYMPHOCYTES PERCENT AUTO 4 % (21-46); MONOCYTES PERCENT AUTO 4 % (4-13); Mean Corpuscular HGB 28.9 pg (26.0-34.0); Mean Corpuscular HGB Conc 31.6 g/dL (31.5-36.5); Mean Corpuscular Volume 92 fL (80-100); Mean Platelet Volume 9.2 fL (9.1-12.4); NEUTROPHILS ABSOLUTE AUTO 17.41 K/mm3 (1.96-9.15); NEUTROPHILS PERCENT AUTO 91 % (41-73); Platelet Count 310 K/mm3 (150-400); RDW Coefficient Variation 12.7 % (11.7-14.2); Red Blood Cell Count 4.08 M/mm3 (3.80-5.20); White Blood Cell Count 19.06 K/mm3 (4.00-11.30)
[2019-08-22 09:48] LABS: Alanine Aminotransfer (ALT/SGP 17 U/L (12-78); Albumin, Blood 3.7 g/dL (3.4-5.0); Alk Phos 74 U/L (50-136); Anion Gap 8 mmol/L (6-16); Aspartate Aminotrans (AST/SGOT 13 U/L (12-37); Bilirubin, Total 0.6 mg/dL (0.1-1.0); Blood Urea Nitrogen 9 mg/dL (8-24); CO2, Blood 25 mmol/L (21-32); Calcium, Blood 9.1 mg/dL (8.5-10.1); Chloride, Blood 105 mmol/L (98-108); Creatinine, Blood 0.64 mg/dL (0.40-1.00); Globulin, Blood 3.6 g/dL (2.2-4.0); Glomerular Filtration Rate >60 (60-); Glucose, Blood 114 mg/dL (70-99); Potassium, Blood 3.8 mmol/L (3.5-5.5); Sodium, Blood 138 mmol/L (136-145); Total Protein, Blood 7.3 g/dL (6.4-8.2)
[2019-08-22 09:52] LABS: International Normalized Ratio 0.97; Prothrombin Time Results 10.3 Sec (9.7-11.5)
[2019-08-22] MEDS ORDERED: DEXL60CA3 PO (11:03)
[2019-08-22] MEDS ORDERED: PRAM.5 PO (11:03)
[2019-08-22] MEDS ORDERED: VENL75ER PO (11:04)
[2019-08-22] MEDS ORDERED: ONDA4 PO (11:04)
[2019-08-22] MEDS ORDERED: ZOLP6.25 PO (11:04)
[2019-08-22] MEDS ORDERED: ALPR.5 PO (11:04)
[2019-08-22] MEDS ORDERED: CALCIUM 600 +1 EA11 PO (11:05)
[2019-08-22] MEDS ORDERED: DOCU100 PO (11:05)
[2019-08-22] MEDS ORDERED: Xopenex Hfa15 GM INH (11:06)
[2019-08-22] MEDS ORDERED: ACET325 PO (11:06)
[2019-08-22] MEDS ORDERED: VITAMIN D34000 UNIT PO (11:06)
[2019-08-22] MEDS ORDERED: VERAMYST (11:07)
[2019-08-22] MEDS ORDERED: VOLTAREN100 GM TOP (11:07)
[2019-08-22] MEDS ORDERED: VICODIN 5-3001 EACH PO (11:08)
[2019-08-22] MEDS ORDERED: Flonase 0.05% N16 GM (11:46)
[2019-08-22] MEDS ORDERED: ZYRTEC10 M2 PO (11:47)
[2019-08-22 14:39] LABS: Source, Urine Clean Catch
[2019-08-22 14:42] LABS: Appearance, Urine Hazy (Clear); Bilirubin, Urine Neg (Neg); Blood, Urine 1+ (Neg); Color, Urine Yellow (P-Yellow); Glucose Qualitative, Urine Neg (Neg); Ketones, Urine Neg (Neg); Leukocyte Esterase, Urine 2+ (Neg); Nitrite, Urine Neg (Neg); Protein, Urine Neg (Neg); Urobilinogen, Urine NORM (Normal)
[2019-08-22 14:48] LABS: Bacteria Many /hpf; Mucus Mod (0-Heavy); Squamous Epithelial Cells Mod /hpf (Few)
--- NOTE | 2019-08-22 19:39 | NUR ---
ADMIT NOTE/SHIFT SUMMARY RECEIVED REPORT FROM FARNAZ CARLIN IN ED. PT TO ROOM VIA GURNEY AT 1155, SBA TRANSFER TO BED. PT ORIENTED TO ROOM AND CALL LIGHT. EDUCATED ON FALL RISK AND USE OF CALL LIGHT. PT STATES SHE HAS BEEN UP ALL NIGHT DUE TO NAUSEA AND VOMITING, AND HAVING A FROG IN HER ROOM AT HOME. PT A&Ox4, CALM AND COOPERATIVE WITH CARE. PT REPORTS CHEST PAIN, CRAMPING, IN LEFT CHEST, PT REPORTS IT STARTED AFTER LIFTING A BOX AT [facility] YESTERDAY AFTERNOON, DENIES NEED FOR PAIN MEDICATIONS, REQUESTING A LIDOCAINE PATCH. PT DENIES SOB AND NAUSEA. PT STATES SHE HAS NOT BEEN NAUSOUS SINCE EMS GAVE HER ZOFRAN ON HER WAY TO ED. PT RECEIVING IB ANTIBIOTICS AND LR AT 125/HR. WHEN PT GOT TO ROOM SHE WAS RESPONDING TO VERBAL STIMULI BUT FALLING BACK ASLEEP QUICKLY. PT UNABLE TO STAY AWAKE FOR 15 MINS AND THIS RN UNABLE TO COMPLETE BEDSIDE SWALLOW EVEAL PER DR CHILDS ORDERS, NPO AND HOLD PO MEDICATIONS STARTED AT 1430. VSS. PT UP IND IN ROOM. NO OTHER ACUTE CHANGES NOTED. REPORT GIVEN TO ONCOMING RN.
--- NOTE | 2019-08-22 19:43 | NUR ---
PATIENT AWAKE IN ROOM. PATIENT INSISTING TO HAVE SOMETHING TO EAT, AND DRINK. PATIENT VERBALIZED SHE DOESN'T HAVE DIFFICULTY WITH SWALLOWING THAT SHE WAS SLEEPING AND WOKE UP TO SMALL AMT OF EMESIS THAT SHE ASPIRATED ON. BEDSIDE SWALLOW EVAL COMPLETED, PATIENT PORTER WELL WITHOUT COMPLICATIONS. PUDDING AND YOGURT GIVEN. LUNG SOUNDS REMAIN CLEAR. BIOX 93-96% ON RA.
--- NOTE | 2019-08-22 22:54 | NUR ---
PATIENT AWAKED BY FEELING IF RIGHT HAND IS NUMB, SELF RESOLVED HAVING FULL MOVEMENT OF HAND AND ARM WITHOUT DIFFICULTY. SEE VITAL SIGNS, PLAN TO RECHECK BP WITH MID NIGHT MEDICATIONS.
[2019-08-23 04:56] LABS: BASOPHILS ABSOLUTE AUTO 0.02 K/mm3 (0.00-0.23); BASOPHILS PERCENT AUTO 0 % (0-2); EOSINOPHILS PERCENT AUTO 2 % (0-6); Hematocrit 31.8 % (33.0-51.0); Hemoglobin 10.1 g/dL (11.5-16.0); IMMATURE GRAN ABSOLUTE AUTO 0.04 K/mm3 (0.00-0.10); IMMATURE GRAN PERCENT AUTO 0 % (0-1); LYMPHOCYTES ABSOLUTE AUTO 2.09 K/mm3 (0.84-5.20); LYMPHOCYTES PERCENT AUTO 19 % (21-46); MONOCYTES ABSOLUTE AUTO 0.59 K/mm3 (0.16-1.47); MONOCYTES PERCENT AUTO 6 % (4-13); Mean Corpuscular HGB 29.9 pg (26.0-34.0); Mean Corpuscular HGB Conc 31.8 g/dL (31.5-36.5); Mean Corpuscular Volume 94 fL (80-100); NEUTROPHILS ABSOLUTE AUTO 7.82 K/mm3 (1.96-9.15); NEUTROPHILS PERCENT AUTO 73 % (41-73); RDW Coefficient Variation 12.9 % (11.7-14.2); RDW Standard Deviation 44.1 fL (35.1-46.3); Red Blood Cell Count 3.38 M/mm3 (3.80-5.20); White Blood Cell Count 10.76 K/mm3 (4.00-11.30)
[2019-08-23 05:00] LABS: Mean Platelet Volume 9.9 fL (9.1-12.4); Platelet Count 268 K/mm3 (150-400)
[2019-08-23 05:01] LABS: Alanine Aminotransfer (ALT/SGP 13 U/L (12-78); Albumin/Globulin Ratio 0.9 (0.8-1.8); Alk Phos 60 U/L (50-136); Anion Gap 5 mmol/L (6-16); Aspartate Aminotrans (AST/SGOT 14 U/L (12-37); Bilirubin, Total 0.6 mg/dL (0.1-1.0); Blood Urea Nitrogen 10 mg/dL (8-24); Bun/Creatinine Ratio 14.3 (12.0-20.0); CO2, Blood 27 mmol/L (21-32); Calcium, Blood 8.6 mg/dL (8.5-10.1); Chloride, Blood 108 mmol/L (98-108); Globulin, Blood 3.4 g/dL (2.2-4.0); Glomerular Filtration Rate >60 (60-); Glucose, Blood 99 mg/dL (70-99); Phosphorus, Blood 3.3 mg/dL (2.5-4.9); Potassium, Blood 4.1 mmol/L (3.5-5.5); Sodium, Blood 140 mmol/L (136-145); Total Protein, Blood 6.4 g/dL (6.4-8.2)
--- NOTE | 2019-08-23 06:01 | NUR ---
SUMMARY PATIENT SLEEPING OFF AND ON T/O NIGHT. C/O NAUSEA THIS MORNING REQUESTING ZOFRAN. PATIENT VERBALIZED THAT SHE TAKES ZOFRAN FREQUENTLY AT HOME FOR NAUSEA. PATIENT PORTER PO WITHOUT DIFFICULTY. REMAINING ON RA T/O NIGHT WITH NO COUGH.
--- NOTE | 2019-08-24 00:13 | NUR ---
ASSUMED CARE APPROXIMATELY 1900; PT A&O, UP AT EDGE OF BED CONVERSING; PT ON RA; PT INSISTANT ON HAVING YOGURT OR PUDDING; C/O HEADACHE AND NAUSEA, MEDICATED PER EMAR; PT SELF AMBULATES TO BATHROOM, TOLERATES WELL. CALL LIGHT IN REACH, BED IN LOWEST POSITION, WILL CONTINUE TO MONITOR AND ASSESS UNTIL HAND OFF TO DAY SHIFT RN.
--- NOTE | 2019-08-24 06:01 | NUR ---
UPDATE PT SHOWERED INDEPENDENTLY THIS AM; C/O NAUSEA, PT GIVEN SPRITE FOR UPSET AND MEDICATED PER EMAR
[2019-08-24] MEDS ORDERED: SACC250C PO (12:01)
== END 2019-08-24 12:42 | disposition home or self-care (01) | DRG 177 ==
LOC: ER 09:02 → PCU 11:52
PROVIDERS: Physician Assistant; ADMIT Hospitalist
DX: J69.0 Pneumonitis due to inhalation of food and vomit (principal); R65.11 Systemic inflammatory response syndrome (SIRS) of non-infectious origin with acute organ dysfunction; R07.89 Other chest pain; K21.9 Gastro-esophageal reflux disease without esophagitis; K22.0 Achalasia of cardia; F41.9 Anxiety disorder, unspecified; I10 Essential (primary) hypertension; G25.81 Restless legs syndrome; M79.7 Fibromyalgia; F32.9 Major depressive disorder, single episode, unspecified; L27.0 Generalized skin eruption due to drugs and medicaments taken internally; T36.8X5A Adverse effect of other systemic antibiotics, initial encounter; Y92.538 Other ambulatory health services establishments as the place of occurrence of the external cause; Z98.84 Bariatric surgery status; Z88.2 Allergy status to sulfonamides; Z88.8 Allergy status to other drugs, medicaments and biological substances; Z88.1 Allergy status to other antibiotic agents; Z79.1 Long term (current) use of non-steroidal anti-inflammatories (NSAID); Z79.891 Long term (current) use of opiate analgesic; Z79.51 Long term (current) use of inhaled steroids; Z79.899 Other long term (current) drug therapy
CPT/HCPCS: 36415; 71046; 80053; 81001; 83605; 83735; 84100; 84145; 85025; 85610; 85730; 86140; 87040; 87086; 92610; 93005; 93010; 96365; 96366; 96368; 96375; 99285-25; A9270; A9270-GY; J0456; J1650; J1956; J7030; J7050; J7120

== ENCOUNTER 2019-10-03 23:15 | Inpatient (IN) | payer MEDICARE, OTHER ==
[~2019-10-03] VITALS: Ht 160 cm; Wt 78.5 kg
[~2019-10-03 23:15] MED LIST changes: +CALCIUM 600 +1 EA11 PO; +Flonase 0.05% N16 GM; +SACC250C PO; +VERAMYST; +VITAMIN D34000 UNIT PO; +ZYRTEC10 M2 PO
[2019-10-03 23:43] LABS: Source, Urine Clean Catch
[2019-10-03 23:45] LABS: BASOPHILS ABSOLUTE AUTO 0.02 K/mm3 (0.00-0.23); BASOPHILS PERCENT AUTO 0 % (0-2); EOSINOPHILS ABSOLUTE AUTO 0.12 K/mm3 (0.00-0.68); EOSINOPHILS PERCENT AUTO 1 % (0-6); Hematocrit 38.8 % (33.0-51.0); Hemoglobin 12.3 g/dL (11.5-16.0); IMMATURE GRAN ABSOLUTE AUTO 0.03 K/mm3 (0.00-0.10); IMMATURE GRAN PERCENT AUTO 0 % (0-1); LYMPHOCYTES ABSOLUTE AUTO 1.31 K/mm3 (0.84-5.20); LYMPHOCYTES PERCENT AUTO 13 % (21-46); MONOCYTES ABSOLUTE AUTO 0.52 K/mm3 (0.16-1.47); MONOCYTES PERCENT AUTO 5 % (4-13); Mean Corpuscular HGB 29.2 pg (26.0-34.0); Mean Corpuscular HGB Conc 31.7 g/dL (31.5-36.5); Mean Corpuscular Volume 92 fL (80-100); Mean Platelet Volume 9.3 fL (9.1-12.4); NEUTROPHILS ABSOLUTE AUTO 8.36 K/mm3 (1.96-9.15); NEUTROPHILS PERCENT AUTO 81 % (41-73); Platelet Count 318 K/mm3 (150-400); RDW Coefficient Variation 12.5 % (11.7-14.2); RDW Standard Deviation 42.4 fL (35.1-46.3); Red Blood Cell Count 4.21 M/mm3 (3.80-5.20); White Blood Cell Count 10.36 K/mm3 (4.00-11.30)
[2019-10-03 23:45] LABS: Bilirubin, Urine Neg (Neg); Blood, Urine 2+ (Neg); Glucose Qualitative, Urine Neg (Neg); Ketones, Urine Neg (Neg); Leukocyte Esterase, Urine 2+ (Neg); Nitrite, Urine Neg (Neg); Protein, Urine 1+ (Neg); Specific Gravity, Urine 1.015 (1.003-1.022); Urobilinogen, Urine NORM (Normal); pH, Urine 6.5 (5.0-8.0)
[2019-10-03 23:51] LABS: Appearance, Urine Clear (Clear); Bacteria Many /hpf; Color, Urine Yellow (P-Yellow); Mucus Light (0-Heavy); Red Blood Cells, Urine 0-2 /hpf (0-2); Squamous Epithelial Cells Few /hpf (Few); White Blood Cells, Urine 25-50 /hpf (0-5)
[2019-10-04 00:02] LABS: Alanine Aminotransfer (ALT/SGP 17 U/L (12-78); Albumin, Blood 3.9 g/dL (3.4-5.0); Alk Phos 81 U/L (50-136); Anion Gap 5 mmol/L (6-16); Aspartate Aminotrans (AST/SGOT 17 U/L (12-37); Bilirubin, Total 0.3 mg/dL (0.1-1.0); Blood Urea Nitrogen 12 mg/dL (8-24); Bun/Creatinine Ratio 15.5 (12.0-20.0); CO2, Blood 29 mmol/L (21-32); Calcium, Blood 9.4 mg/dL (8.5-10.1); Chloride, Blood 107 mmol/L (98-108); Creatinine, Blood 0.78 mg/dL (0.40-1.00); Glomerular Filtration Rate >60 (60-); Glucose, Blood 114 mg/dL (70-99); Potassium, Blood 3.9 mmol/L (3.5-5.5); Sodium, Blood 141 mmol/L (136-145); Total Protein, Blood 7.9 g/dL (6.4-8.2)
[2019-10-04 03:41] LABS: Hematocrit 37.8 % (33.0-51.0); Hemoglobin 11.8 g/dL (11.5-16.0); Mean Corpuscular HGB 28.5 pg (26.0-34.0); Mean Corpuscular HGB Conc 31.2 g/dL (31.5-36.5); Mean Corpuscular Volume 91 fL (80-100); Mean Platelet Volume 9.3 fL (9.1-12.4); Platelet Count 274 K/mm3 (150-400); RDW Coefficient Variation 12.5 % (11.7-14.2); RDW Standard Deviation 41.2 fL (35.1-46.3); Red Blood Cell Count 4.14 M/mm3 (3.80-5.20)
[2019-10-04 04:03] LABS: Alanine Aminotransfer (ALT/SGP 14 U/L (12-78); Albumin, Blood 3.6 g/dL (3.4-5.0); Alk Phos 77 U/L (50-136); Anion Gap 5 mmol/L (6-16); Aspartate Aminotrans (AST/SGOT 14 U/L (12-37); Bilirubin, Total 0.5 mg/dL (0.1-1.0); Blood Urea Nitrogen 10 mg/dL (8-24); Bun/Creatinine Ratio 13.4 (12.0-20.0); CO2, Blood 29 mmol/L (21-32); Chloride, Blood 109 mmol/L (98-108); Creatinine, Blood 0.75 mg/dL (0.40-1.00); Globulin, Blood 3.7 g/dL (2.2-4.0); Glomerular Filtration Rate >60 (60-); Glucose, Blood 105 mg/dL (70-99); Potassium, Blood 3.5 mmol/L (3.5-5.5); Sodium, Blood 143 mmol/L (136-145); Total Protein, Blood 7.3 g/dL (6.4-8.2)
--- NOTE | 2019-10-04 06:19 | NUR ---
SHIFT SUMMARY: JENNIFER WAS ADMITTED EARLY THIS MORNING FOR A POSSIBLE SMALL BOWEL OBSTRUCTION. SHE HAS COMPLAINED OF 8/10 PAIN FOR WHICH FENTANYL HAS BEEN EFFECTIVE. SHE HAS BEEN DROWSY SINCE ADMISSION, SHE WAS GIVEN ATIVAN IN THE ER. SHE WALKS TO THE BATHROOM WITH STANDBY ASSIST AND HAS BEEN URINATING WITHOUT DIFFICULTY. HER BP WAS FOUND TO BE ELEVATED, 156/131 AND RECHECK WAS 153/127 AND HER OXYGEN SATURATION WAS 85%. AFTER 25 MCG OF FENTANYL AND PLACING 2 LPM OF O2 VIA NC, HER BP IMPROVED TO 159/71 AND O2 TO 92%. SHE IS COUGHING UP THICK YELLOW SPUTUM. SHE REPORTS THAT SHE IS "ASPIRATING IN HER SLEEP" AND IS NO LONGER TAKING HER SLEEP AID BECAUSE OF THAT. SHE ALSO STATED "THEY DON'T KNOW WHY" WHEN ASKED WHAT IS CAUSING THE ASPIRATION. SHE IS ABLE TO MAKE HER NEEDS KNOWN. K-PAD PROVIDED. SHE IS LYING IN BED WITH HER CALL LIGHT IN REACH.
--- NOTE | 2019-10-04 07:56 | NUR ---
PT CONDITION, DR. BLACK CALLED UPON AM ASSESSMENT PT APPEARS VERY SOMNOLENT, RESPONDS TO QUESTIONS BUT EYES REMAIN CLOSED AND PT FELL ASLEEP DURING ASSESSMENT. BP ELEVATED 184/94, HR BETWEEN 93 AND 113. PT ALSO PRESENTS WITH CHILLS AND A TEMPURATURE OF 100.2. EXTREMITIES ARE COLD WITH A DISTINCT AREA FROM COOL TO WARM SKIN. LUNG SOUNDS ARE COARSE IN THE BASES AND PT REPORTS IT IS PAINFUL IN HER LUNGS TO TAKE A DEEP BREATH. PULSE OX ORDERED. DR. BLACK NOTIFIED OF PT CONDITION. ORDERS PLACED. WILL CONTINUE TO MONITOR.
[2019-10-04 08:29] LABS: Source, Urine Clean Catch
[2019-10-04 08:34] LABS: Bilirubin, Urine Neg (Neg); Blood, Urine 1+ (Neg); Glucose Qualitative, Urine Neg (Neg); Ketones, Urine Neg (Neg); Leukocyte Esterase, Urine 2+ (Neg); Nitrite, Urine Neg (Neg); Protein, Urine Neg (Neg); Specific Gravity, Urine 1.015 (1.003-1.022); Urobilinogen, Urine NORM (Normal)
[2019-10-04 08:46] LABS: Appearance, Urine Clear (Clear); Color, Urine Yellow (P-Yellow)
[2019-10-04 08:52] LABS: Red Blood Cells, Urine 0-2 /hpf (0-2); Squamous Epithelial Cells Few /hpf (Few)
[2019-10-04 08:53] LABS: Bacteria Rare /hpf
--- NOTE | 2019-10-04 09:09 | NUR ---
LACTIC ACID LEVEL OF 4.3. PT HAS PRODUCTIVE COUGH. DR. BLACK NOTIFIED. ADDITIONAL LABS ORDERED WILL START IV FLUIDS ORDERED.
--- NOTE | 2019-10-04 10:12 | NUR ---
REPORT CALLED TO RONALD IN PCU. PT TRANSPORTED TO PCU ROOM 11 AT APPROXIMATELY 1012. PT DROWSY BUT AWAKENS WHEN SPOKEN TO, PT APPEARS LETHARGIC. ZOSYN AND FLUID BOLUS STARTED PRIOR TO TRANSPORT.
[2019-10-04 11:02] LABS: Adenovirus Not Detected (NOT DETECT); Bordetella pertussis Not Detected (NOT DETECT); Chlamydophila pneumoniae Not Detected (NOT DETECT); Coronavirus 229E Not Detected (NOT DETECT); Coronavirus HKU1 Not Detected (NOT DETECT); Coronavirus NL63 Not Detected (NOT DETECT); Coronavirus OC43 Not Detected (NOT DETECT); Human Metapneumovirus Not Detected (NOT DETECT); Human Rhinovirus/Enterovirus Not Detected (NOT DETECT); Influenza A Not Detected (NOT DETECT); Influenza A/2009-H1 Not Detected (NOT DETECT); Influenza A/H1 Not Detected (NOT DETECT); Influenza A/H3 Not Detected (NOT DETECT); Influenza B Not Detected (NOT DETECT); Mycoplasma pneumoniae Not Detected (NOT DETECT); Parainfluenza Virus 1 Not Detected (NOT DETECT); Parainfluenza Virus 2 Not Detected (NOT DETECT); Parainfluenza Virus 3 Not Detected (NOT DETECT); Parainfluenza Virus 4 Not Detected (NOT DETECT); Respiratory Syncytial Virus Not Detected (NOT DETECT)
--- NOTE | 2019-10-04 11:58 | NUR ---
ASSUMED CARE PT ARRIVED VIA BED FROM SURGICAL FLOOR; PT APPEARS LETHARGIC; AWAKENS EASILY; ANSWERS QUESTIONS WITH 2-3 WORD SENTENCES; PT USES BSC W/ SBA; ZOSYN AND NS BOLUS INFUSING; RESPIRATORY IN TO SEE PT; C/O 7 OF 10 PAIN; 25 MCG OF FENTANYL GIVEN FOR PAIN; ADJUSTED DOSE PER RN JUDGEMENT DUE TO SLEEPINESS OF PT AND SHE IS NEW TO THIS RN; CALL LIGHT IN REACH; BED IN LOWEST POSITION; WILL CONTINUE TO MONITOR CLOSELY.
--- NOTE | 2019-10-04 19:40 | NUR ---
TRANSFER TRANSPORT SERVICES ARRIVED AND ASSUMED CARE OF PATIENT. ALL BELONGINGS GATHERED AND SENT WITH PATIENT AT THIS TIME. REPORT BEING CALLED TO [facility] BY RONALD HIGGINS RN AT THIS TIME.
--- NOTE | 2019-10-04 19:52 | NUR ---
SHIFT SUMMARY PT A&O; NG TUBE PLACED BY WHEEL GRINDER; IMAGING CONFIRMED PLACEMENT; SPOUSE AT BEDSIDE; PT PREP FOR TRANSPORT TO [facility] PER ; ALL BELONGINGS SENT W/ PT; PT PUT UPPER DENTURES BACK IN FOR TRANSPORT; [facility] AND SENT W/PT; [facility]
== END 2019-10-04 19:41 | disposition short-term general hospital (02) | DRG 389 ==
LOC: ER 23:15 → SURS 23:16 → PCU 10-04 01:47 → SURS 10-04 02:27 → PCU 10-04 10:11
PROVIDERS: Internal Medicine; Physician Assistant; ADMIT Internal Medicine
DX: K56.609 Unspecified intestinal obstruction, unspecified as to partial versus complete obstruction (principal); N39.0 Urinary tract infection, site not specified; K21.9 Gastro-esophageal reflux disease without esophagitis; G25.81 Restless legs syndrome; F32.9 Major depressive disorder, single episode, unspecified; D50.9 Iron deficiency anemia, unspecified; M85.80 Other specified disorders of bone density and structure, unspecified site; Z98.84 Bariatric surgery status; Z87.891 Personal history of nicotine dependence; Z88.6 Allergy status to analgesic agent; Z88.1 Allergy status to other antibiotic agents; Z88.2 Allergy status to sulfonamides; Z88.8 Allergy status to other drugs, medicaments and biological substances; Z79.899 Other long term (current) drug therapy
CPT/HCPCS: 0099U; 36415; 71045; 74018; 74176; 80053; 81001; 83605; 83690; 85025; 85027; 87077; 87086; 87186; 94762; 96361; 96365; 96375; 99285-25; A9270; J0696; J0780; J1200; J1650; J2060; J2405; J2543; J3010; J7030

== ENCOUNTER 2019-10-26 11:40 | Observation (INO) | payer MEDICARE, OTHER ==
[~2019-10-26] VITALS: Ht 157.5 cm; Wt 77.3 kg
[2019-10-26 12:59] LABS: Source, Urine Clean Catch
[2019-10-26 13:08] LABS: BASOPHILS ABSOLUTE AUTO 0.02 K/mm3 (0.00-0.23); BASOPHILS PERCENT AUTO 0 % (0-2); EOSINOPHILS ABSOLUTE AUTO 0.02 K/mm3 (0.00-0.68); EOSINOPHILS PERCENT AUTO 0 % (0-6); Hematocrit 39.9 % (33.0-51.0); Hemoglobin 12.5 g/dL (11.5-16.0); IMMATURE GRAN ABSOLUTE AUTO 0.08 K/mm3 (0.00-0.10); IMMATURE GRAN PERCENT AUTO 1 % (0-1); LYMPHOCYTES ABSOLUTE AUTO 0.58 K/mm3 (0.84-5.20); LYMPHOCYTES PERCENT AUTO 4 % (21-46); MONOCYTES PERCENT AUTO 4 % (4-13); Mean Corpuscular HGB 28.6 pg (26.0-34.0); Mean Corpuscular HGB Conc 31.3 g/dL (31.5-36.5); Mean Corpuscular Volume 91 fL (80-100); Mean Platelet Volume 9.5 fL (9.1-12.4); NEUTROPHILS ABSOLUTE AUTO 14.62 K/mm3 (1.96-9.15); NEUTROPHILS PERCENT AUTO 91 % (41-73); Platelet Count 323 K/mm3 (150-400); RDW Coefficient Variation 12.6 % (11.7-14.2); RDW Standard Deviation 41.5 fL (35.1-46.3); Red Blood Cell Count 4.37 M/mm3 (3.80-5.20); White Blood Cell Count 16.02 K/mm3 (4.00-11.30)
[2019-10-26 13:12] LABS: Bilirubin, Urine Neg (Neg); Blood, Urine Neg (Neg); Glucose Qualitative, Urine Neg (Neg); Ketones, Urine Neg (Neg); Leukocyte Esterase, Urine Neg (Neg); Nitrite, Urine Pos (Neg); Protein, Urine Neg (Neg); Specific Gravity, Urine 1.015 (1.003-1.022); Urobilinogen, Urine NORM (Normal)
[2019-10-26 13:18] LABS: Appearance, Urine Hazy (Clear); Color, Urine Yellow (P-Yellow)
[2019-10-26 13:19] LABS: Bacteria Mod /hpf; Red Blood Cells, Urine Not Seen /hpf (0-2); Squamous Epithelial Cells Few /hpf (Few); White Blood Cells, Urine Not Seen /hpf (0-5)
[2019-10-26 13:29] LABS: Alanine Aminotransfer (ALT/SGP 15 U/L (12-78); Albumin, Blood 3.8 g/dL (3.4-5.0); Alk Phos 78 U/L (50-136); Anion Gap 8 mmol/L (6-16); Aspartate Aminotrans (AST/SGOT 13 U/L (12-37); Bilirubin, Total 0.5 mg/dL (0.1-1.0); Blood Urea Nitrogen 11 mg/dL (8-24); Bun/Creatinine Ratio 18.2 (12.0-20.0); CO2, Blood 25 mmol/L (21-32); Calcium, Blood 9.3 mg/dL (8.5-10.1); Chloride, Blood 105 mmol/L (98-108); Globulin, Blood 3.9 g/dL (2.2-4.0); Glomerular Filtration Rate >60 (60-); Glucose, Blood 93 mg/dL (70-99); Potassium, Blood 3.5 mmol/L (3.5-5.5); Sodium, Blood 138 mmol/L (136-145); Total Protein, Blood 7.7 g/dL (6.4-8.2)
[2019-10-26 13:40] LABS: Influenza A Negative (NEGATIVE); Influenza B Negative (NEGATIVE)
[2019-10-26] MEDS ORDERED: LISINOPRIL2.5 MG PO (13:49)
[2019-10-26] MEDS ORDERED: LEVA1.25 INH (13:50)
[2019-10-26] MEDS ORDERED: LEVALBUTEROL TA15 GM INH (13:50)
[2019-10-26] MEDS ORDERED: VENLAFAXINE HCL75 MG PO (13:51)
--- NOTE | 2019-10-26 15:56 | NUR ---
DR CORNEJO NOTIFIED PT IN THE ROOM, PT ADMITTED FROM THE ER, ALERT AND ORIENTED, C/O NECK ACHE, ICE PACK GIVEN AT THIS TIME
--- NOTE | 2019-10-26 17:42 | NUR ---
SUMMARY PT RESTING QUIETLY IN BED, WATCHING TV, PLEASANT AND COOPERATIVE WITH CARE, WILL CONT TO MONITOR
--- NOTE | 2019-10-26 23:09 | NUR ---
BEGINNING SHIFT BLANCA ASSUMED CARE OF PT AT 1900. PT IS A/O X4, PT IS LYING IN BED WATCHING TV, PT STATES THAT SHE US UPSET ABOUT BEING HERE AT THIS TIME OF YEAR AND SHE HAS SO MUCH STUFF TO DO WHEN SHE GETS LAURA HOME. HEART SOUNDS REGULAR, LUNG SOUNDS CLEAR. PT REPORTS HAVING GASTRIC BYPASS SURGERY A FEW YEARS AGO AND CANT TAKE ALL HER PILLS AT ONCE OR ELSE SHE WILL FEEL FULL. PT URINE IS SRINI/YELLOW AND HAS AN ODOR, PT USES RESTROOM FREQUENTLY WITH ASSISTTANCE. CALL LIGHT IN REACH, BED IN LOWEST POSTION, WILL CONTINUE TO MONITOR.
[2019-10-27 04:40] LABS: BASOPHILS ABSOLUTE AUTO 0.02 K/mm3 (0.00-0.23); BASOPHILS PERCENT AUTO 0 % (0-2); EOSINOPHILS ABSOLUTE AUTO 0.15 K/mm3 (0.00-0.68); EOSINOPHILS PERCENT AUTO 1 % (0-6); Hematocrit 33.7 % (33.0-51.0); Hemoglobin 10.7 g/dL (11.5-16.0); IMMATURE GRAN ABSOLUTE AUTO 0.08 K/mm3 (0.00-0.10); IMMATURE GRAN PERCENT AUTO 1 % (0-1); LYMPHOCYTES ABSOLUTE AUTO 1.57 K/mm3 (0.84-5.20); LYMPHOCYTES PERCENT AUTO 10 % (21-46); MONOCYTES ABSOLUTE AUTO 1.01 K/mm3 (0.16-1.47); MONOCYTES PERCENT AUTO 7 % (4-13); Mean Corpuscular HGB 28.8 pg (26.0-34.0); Mean Corpuscular HGB Conc 31.8 g/dL (31.5-36.5); Mean Corpuscular Volume 91 fL (80-100); Mean Platelet Volume 9.6 fL (9.1-12.4); NEUTROPHILS ABSOLUTE AUTO 12.82 K/mm3 (1.96-9.15); NEUTROPHILS PERCENT AUTO 82 % (41-73); Platelet Count 316 K/mm3 (150-400); RDW Coefficient Variation 12.7 % (11.7-14.2); RDW Standard Deviation 41.9 fL (35.1-46.3); Red Blood Cell Count 3.71 M/mm3 (3.80-5.20); White Blood Cell Count 15.65 K/mm3 (4.00-11.30)
--- NOTE | 2019-10-27 04:48 | NUR ---
END SHIFT SUMMARY NO ACUTE CHANGES NOTED T/O THE NIGHT. PT SLEPT MOST OF THE NIGHT EXCEPT TO USE THE RESTROOM. PT WAS A SBA TO THE RESTROOM. MORNING LABS SHOEED THAT THE WBC HAS TRENDED DOWN FROM 16.02 TO 15.65. HGB DROPPED FROM 12.5 TO 10.7, WILL NOTIFY DAYSHIFT NURSE. PT HOPES TO RETURN HOME TODAY, PT STATED THAT THE DOCTOR SAID IF HER WBC DECREASES SHE CAN POSSIBLY RETURN HOME TODAY. CALL LIGHT IN REACH, BED IN LOWEST POSTION, WILL CONTINUE TO MONITOR UNTIL DAYSHIFT NURSE ARRIVES.
[2019-10-27 04:57] LABS: Anion Gap 4 mmol/L (6-16); Blood Urea Nitrogen 12 mg/dL (8-24); Bun/Creatinine Ratio 19.3 (12.0-20.0); CO2, Blood 27 mmol/L (21-32); Calcium, Blood 8.7 mg/dL (8.5-10.1); Chloride, Blood 108 mmol/L (98-108); Creatinine, Blood 0.62 mg/dL (0.40-1.00); Glomerular Filtration Rate >60 (60-); Glucose, Blood 96 mg/dL (70-99); Potassium, Blood 3.8 mmol/L (3.5-5.5); Sodium, Blood 139 mmol/L (136-145)
--- NOTE | 2019-10-27 17:06 | NUR ---
SUMMARY PT RESTING QUIETLY IN BED, HAS BEEN PLEASANT AND COOPERATIVE WITH CARE T/O THE DAY, HAS HAD FRIENDS IN TO VISIT, PT HAS BEEN INDEPENDENT IN THE ROOM, VSS, PT HOPEFUL TO BE DC'D IN AM, NO ACUTE CHANGES, WILL CONT TO MONITOR
--- NOTE | 2019-10-28 04:11 | NUR ---
SHIFT SUMMARY PATIENT HAD NO ACUTE CHANGES OBSERVED. AXOX 4 AND INDEPENDENT IN ROOM. PIV REMAINS INTACT. IV ABX INFUSED. DENIES PAIN, SOB, AND N/V. VSS/AFEBRILE. COOPERATIVE WITH CARE. DROPLET PRECAUTIONS. CALL LIGHT IN REACH. BED IN LOWEST POSITION. WILL CONTINUE TO MONITOR UNTIL DAY SHIFT NURSE ASSUMES CARE.
[2019-10-28] MEDS ORDERED: NITR100CA PO (14:49)
--- NOTE | 2019-10-28 15:53 | NUR ---
PT D/C HOME. PT D/C HOME, VS STABLE. PT DENIES CHEST PAIN/PRESSURE N/V OR SOB. PT WAS GIVEN FIRST DOSE OF ANTIBIOTIC, PT WAS WATCHED FOR 2 HOURS, THERE WAS NO SIGN OF REACTION, NO ITCHING, SWELLING OR RASHES. ALL OF PT'S BELONGINGS PACKED AND SENT WITH PT. IV WAS REMOVED WNL. PT WAS TAKEN TO EXIT VIA WC.
== END 2019-10-28 15:45 | disposition home or self-care (01) ==
LOC: ER 11:40 → MEDS 11:41
PROVIDERS: Emergency Medicine; ADMIT Internal Medicine
DX: N10 Acute pyelonephritis (principal); M79.7 Fibromyalgia; G25.81 Restless legs syndrome; F41.9 Anxiety disorder, unspecified; F32.9 Major depressive disorder, single episode, unspecified; Z16.12 Extended spectrum beta lactamase (ESBL) resistance; Z98.84 Bariatric surgery status; Z90.710 Acquired absence of both cervix and uterus; Z88.1 Allergy status to other antibiotic agents; Z88.2 Allergy status to sulfonamides; Z88.6 Allergy status to analgesic agent; Z88.8 Allergy status to other drugs, medicaments and biological substances; Z91.041 Radiographic dye allergy status; Z91.048 Other nonmedicinal substance allergy status; Z79.899 Other long term (current) drug therapy
CPT/HCPCS: 36415; 71046; 80048; 80053; 81001; 83605; 85025; 87040; 87077; 87086; 87186; 87804; 94640; 96361; 96365; 96372; 96374; 96375; 96376; 99285-25; A9270; G0378; J1650; J2405; J2543; J7050; J7120

== ENCOUNTER 2019-12-07 11:39 | Inpatient (IN) | payer MEDICARE, OTHER ==
[~2019-12-07] VITALS: Ht 157.5 cm; Wt 78.7 kg
[~2019-12-07 11:39] MED LIST changes: +LEVA1.25 INH; +LEVALBUTEROL TA15 GM INH; +LISINOPRIL2.5 MG PO; +NITR100CA PO; +VENLAFAXINE HCL75 MG PO
[2019-12-07 12:24] LABS: BASOPHILS ABSOLUTE AUTO 0.02 K/mm3 (0.00-0.23); BASOPHILS PERCENT AUTO 0 % (0-2); EOSINOPHILS ABSOLUTE AUTO 0.03 K/mm3 (0.00-0.68); EOSINOPHILS PERCENT AUTO 0 % (0-6); Hematocrit 37.3 % (33.0-51.0); Hemoglobin 12.1 g/dL (11.5-16.0); IMMATURE GRAN ABSOLUTE AUTO 0.04 K/mm3 (0.00-0.10); IMMATURE GRAN PERCENT AUTO 0 % (0-1); LYMPHOCYTES ABSOLUTE AUTO 0.56 K/mm3 (0.84-5.20); LYMPHOCYTES PERCENT AUTO 4 % (21-46); MONOCYTES ABSOLUTE AUTO 0.46 K/mm3 (0.16-1.47); MONOCYTES PERCENT AUTO 4 % (4-13); Mean Corpuscular HGB 28.9 pg (26.0-34.0); Mean Corpuscular HGB Conc 32.4 g/dL (31.5-36.5); Mean Corpuscular Volume 89 fL (80-100); Mean Platelet Volume 9.3 fL (9.1-12.4); NEUTROPHILS ABSOLUTE AUTO 12.15 K/mm3 (1.96-9.15); NEUTROPHILS PERCENT AUTO 92 % (41-73); Platelet Count 279 K/mm3 (150-400); RDW Coefficient Variation 12.9 % (11.7-14.2); Red Blood Cell Count 4.19 M/mm3 (3.80-5.20); White Blood Cell Count 13.26 K/mm3 (4.00-11.30)
[2019-12-07 12:35] LABS: Alanine Aminotransfer (ALT/SGP 15 U/L (12-78); Albumin, Blood 3.6 g/dL (3.4-5.0); Albumin/Globulin Ratio 0.9 (0.8-1.8); Alk Phos 83 U/L (50-136); Anion Gap 9 mmol/L (6-16); Aspartate Aminotrans (AST/SGOT 13 U/L (12-37); Bilirubin, Total 0.5 mg/dL (0.1-1.0); Blood Urea Nitrogen 11 mg/dL (8-24); CO2, Blood 26 mmol/L (21-32); Chloride, Blood 105 mmol/L (98-108); Creatinine, Blood 0.55 mg/dL (0.40-1.00); Globulin, Blood 3.8 g/dL (2.2-4.0); Glomerular Filtration Rate >60 (60-); Glucose, Blood 106 mg/dL (70-99); Potassium, Blood 3.6 mmol/L (3.5-5.5); Sodium, Blood 140 mmol/L (136-145); Total Protein, Blood 7.4 g/dL (6.4-8.2)
[2019-12-07 12:37] LABS: Troponin I <0.015 ng/mL (0.000-0.040)
[2019-12-07 13:09] LABS: Source, Urine Catheter
[2019-12-07 13:57] LABS: Bilirubin, Urine Neg (Neg); Blood, Urine 3+ (Neg); Glucose Qualitative, Urine Neg (Neg); Ketones, Urine Neg (Neg); Leukocyte Esterase, Urine 1+ (Neg); Nitrite, Urine Pos (Neg); Protein, Urine Neg (Neg); Urobilinogen, Urine NORM (Normal)
[2019-12-07 14:05] LABS: Appearance, Urine Hazy (Clear); Color, Urine Yellow (P-Yellow)
[2019-12-07 14:06] LABS: Red Blood Cells, Urine 0-2 /hpf (0-2)
[2019-12-07 14:07] LABS: Bacteria Many /hpf; Squamous Epithelial Cells Rare /hpf (Few)
[2019-12-07] MEDS ORDERED: ALPRAZOLAM0.5 M1 PO (15:37)
--- NOTE | 2019-12-07 16:05 | NUR ---
PT ARRIVED TO UNIT AT 1605 VIA BED. PT ORIENTATED TO ROOM. PROVIDED WATER. NO OTHER NEEDS AT THIS TIME
--- NOTE | 2019-12-08 04:44 | NUR ---
SHIFT SUMMARY PT PLEASANT AND COOPERATIVE. PT HAS GENERALIZED FEELING OF MALAISE. REMAINED AFEBRILE THROUGHOUT THE NIGHT. VITAL SIGNS STABLE. DID NOTIFY ELAINE WILKERSON OF LACTIC ACID DRAW 2.8 UP FROM FIRST DRAW OF 2.6. NO NEW ORDERS DUE TO NO OTHER SIGNS OF SEPSIS AT THIS TIME. PT DID COMPLAIN OF HEADACHE. MEDICATED W/ TYLENOL X 1. ALSO HAD ONE EPISODE OF NAUSEA, MEDICATED W/ ZOFRAN. OTHERWISE PT SLEPT WELL THROUGH MUCH OF THE NIGHT. RESPIRATIONS EVEN AND UNLABORED. NO ACUTE CHANGES THIS SHIFT.
[2019-12-08 05:01] LABS: BASOPHILS ABSOLUTE AUTO 0.03 K/mm3 (0.00-0.23); BASOPHILS PERCENT AUTO 0 % (0-2); EOSINOPHILS ABSOLUTE AUTO 0.17 K/mm3 (0.00-0.68); EOSINOPHILS PERCENT AUTO 1 % (0-6); Hematocrit 31.9 % (33.0-51.0); Hemoglobin 10.1 g/dL (11.5-16.0); IMMATURE GRAN ABSOLUTE AUTO 0.05 K/mm3 (0.00-0.10); IMMATURE GRAN PERCENT AUTO 0 % (0-1); LYMPHOCYTES ABSOLUTE AUTO 1.82 K/mm3 (0.84-5.20); LYMPHOCYTES PERCENT AUTO 12 % (21-46); MONOCYTES ABSOLUTE AUTO 0.85 K/mm3 (0.16-1.47); MONOCYTES PERCENT AUTO 6 % (4-13); Mean Corpuscular HGB 28.9 pg (26.0-34.0); Mean Corpuscular HGB Conc 31.7 g/dL (31.5-36.5); Mean Corpuscular Volume 91 fL (80-100); Mean Platelet Volume 9.5 fL (9.1-12.4); NEUTROPHILS ABSOLUTE AUTO 11.76 K/mm3 (1.96-9.15); NEUTROPHILS PERCENT AUTO 80 % (41-73); Platelet Count 233 K/mm3 (150-400); RDW Coefficient Variation 12.9 % (11.7-14.2); RDW Standard Deviation 42.5 fL (35.1-46.3); Red Blood Cell Count 3.49 M/mm3 (3.80-5.20); White Blood Cell Count 14.68 K/mm3 (4.00-11.30)
[2019-12-08 05:21] LABS: Anion Gap 4 mmol/L (6-16); Blood Urea Nitrogen 11 mg/dL (8-24); Bun/Creatinine Ratio 15.9 (12.0-20.0); CO2, Blood 27 mmol/L (21-32); Calcium, Blood 8.3 mg/dL (8.5-10.1); Chloride, Blood 109 mmol/L (98-108); Creatinine, Blood 0.69 mg/dL (0.40-1.00); Glomerular Filtration Rate >60 (60-); Glucose, Blood 99 mg/dL (70-99); Potassium, Blood 3.9 mmol/L (3.5-5.5); Sodium, Blood 140 mmol/L (136-145)
--- NOTE | 2019-12-08 13:11 | NUR ---
Patient is sitting up in bed and alert. Patient is pleasant and open to conversation. Patient shares about her repeated stays in the hospital and the search for medical answers. Patient shares about her spiritual journey to that brought her to the [facility]. We talk about how she is enlightened and finds peace in the midst of her changing surroundings and circumstances. I listen empathically, reinforce helpful attitudes and practices and provide a calming presence. Patient responds well and welcomes me to come back and visit again.
--- NOTE | 2019-12-08 18:29 | NUR ---
SHIFT SUMMARY PT IS ALERT ORIENTED AND INDEPENDENT IN THE ROOM. PT STILL GETTING IV ANTIBIOTICS. POWER GLIDE STARTED FOR ANTIBIOTICS. VSS. WILL MONITOR UNTIL REPORT TO ONCOMING RN.
[2019-12-09 05:50] LABS: BASOPHILS ABSOLUTE AUTO 0.03 K/mm3 (0.00-0.23); BASOPHILS PERCENT AUTO 0 % (0-2); EOSINOPHILS ABSOLUTE AUTO 0.37 K/mm3 (0.00-0.68); EOSINOPHILS PERCENT AUTO 4 % (0-6); Hematocrit 32.2 % (33.0-51.0); Hemoglobin 10.1 g/dL (11.5-16.0); IMMATURE GRAN ABSOLUTE AUTO 0.04 K/mm3 (0.00-0.10); IMMATURE GRAN PERCENT AUTO 0 % (0-1); LYMPHOCYTES ABSOLUTE AUTO 1.72 K/mm3 (0.84-5.20); LYMPHOCYTES PERCENT AUTO 18 % (21-46); MONOCYTES PERCENT AUTO 7 % (4-13); Mean Corpuscular HGB 28.1 pg (26.0-34.0); Mean Corpuscular HGB Conc 31.4 g/dL (31.5-36.5); Mean Corpuscular Volume 90 fL (80-100); Mean Platelet Volume 9.5 fL (9.1-12.4); NEUTROPHILS ABSOLUTE AUTO 6.94 K/mm3 (1.96-9.15); NEUTROPHILS PERCENT AUTO 71 % (41-73); Platelet Count 241 K/mm3 (150-400); RDW Coefficient Variation 12.6 % (11.7-14.2); RDW Standard Deviation 41.8 fL (35.1-46.3); Red Blood Cell Count 3.59 M/mm3 (3.80-5.20)
[2019-12-09 06:14] LABS: Albumin, Blood 2.9 g/dL (3.4-5.0); Anion Gap 3 mmol/L (6-16); Blood Urea Nitrogen 8 mg/dL (8-24); Bun/Creatinine Ratio 13.1 (12.0-20.0); CO2, Blood 28 mmol/L (21-32); Calcium, Blood 8.6 mg/dL (8.5-10.1); Chloride, Blood 108 mmol/L (98-108); Creatinine, Blood 0.61 mg/dL (0.40-1.00); Glomerular Filtration Rate >60 (60-); Glucose, Blood 90 mg/dL (70-99); Phosphorus, Blood 2.7 mg/dL (2.5-4.9); Potassium, Blood 3.9 mmol/L (3.5-5.5); Sodium, Blood 139 mmol/L (136-145)
--- NOTE | 2019-12-09 07:03 | NUR ---
SHIFT SUMMARY PATIENT ALERT AND ORIENTED, VERY PLEASANT TO WORK WITH. POWERGLIDE IN RIGHT UPPER ARM PATENT AND FLUSHED BUT WOULD NOT DRAW BACK BLOOD. PATIENT ENJOYED A WALK IN THE HALLWAY THIS MORNING AND IT HELPED WITH HER ACHES AND PAINS. BED IN LOWEST POSITION WITH WHEELS LOCKED. CALL LIGHT WITHIN REACH. REPORT GIVEN TO ONCOMING RN.
--- NOTE | 2019-12-09 18:18 | NUR ---
PT ALERT AND ORIENTED THROUGHOUT THIS SHIFT. PT UP INDEPENDENTLY IN THE ROOM. PT AMBULATED IN THE [place] WITH HER MOTHER THIS SHIFT. PT MEDICATED WITH ZOFRAN FOR NAUSEA 1X THIS SHIFT. PT UP IN BED, NO FURTHER NEEDS AT THIS TIME.
--- NOTE | 2019-12-10 04:09 | NUR ---
SHIFT SUMMARY: 69 Y/O FEMALE RESTED COMFORTABLY ALL SHIFT; DENIES PAIN OR NAUSEA; POSSIBLE DISCHARGE HOME TODAY; BED LOW POSITION WITH CALL LIGHT AT SIDE.
[2019-12-10 05:36] LABS: BASOPHILS ABSOLUTE AUTO 0.03 K/mm3 (0.00-0.23); BASOPHILS PERCENT AUTO 0 % (0-2); EOSINOPHILS ABSOLUTE AUTO 0.28 K/mm3 (0.00-0.68); EOSINOPHILS PERCENT AUTO 4 % (0-6); Hematocrit 32.6 % (33.0-51.0); Hemoglobin 10.4 g/dL (11.5-16.0); IMMATURE GRAN ABSOLUTE AUTO 0.03 K/mm3 (0.00-0.10); IMMATURE GRAN PERCENT AUTO 0 % (0-1); LYMPHOCYTES ABSOLUTE AUTO 1.31 K/mm3 (0.84-5.20); LYMPHOCYTES PERCENT AUTO 20 % (21-46); MONOCYTES ABSOLUTE AUTO 0.59 K/mm3 (0.16-1.47); MONOCYTES PERCENT AUTO 9 % (4-13); Mean Corpuscular HGB 28.4 pg (26.0-34.0); Mean Corpuscular HGB Conc 31.9 g/dL (31.5-36.5); Mean Corpuscular Volume 89 fL (80-100); Mean Platelet Volume 9.3 fL (9.1-12.4); NEUTROPHILS ABSOLUTE AUTO 4.43 K/mm3 (1.96-9.15); NEUTROPHILS PERCENT AUTO 67 % (41-73); Platelet Count 253 K/mm3 (150-400); RDW Coefficient Variation 12.6 % (11.7-14.2); RDW Standard Deviation 40.9 fL (35.1-46.3); Red Blood Cell Count 3.66 M/mm3 (3.80-5.20); White Blood Cell Count 6.67 K/mm3 (4.00-11.30)
[2019-12-10 05:57] LABS: Alanine Aminotransfer (ALT/SGP 13 U/L (12-78); Albumin, Blood 2.9 g/dL (3.4-5.0); Albumin/Globulin Ratio 0.8 (0.8-1.8); Alk Phos 65 U/L (50-136); Anion Gap 5 mmol/L (6-16); Aspartate Aminotrans (AST/SGOT 10 U/L (12-37); Bilirubin, Total 0.2 mg/dL (0.1-1.0); Blood Urea Nitrogen 6 mg/dL (8-24); Bun/Creatinine Ratio 10.3 (12.0-20.0); CO2, Blood 29 mmol/L (21-32); Calcium, Blood 8.6 mg/dL (8.5-10.1); Chloride, Blood 107 mmol/L (98-108); Creatinine, Blood 0.58 mg/dL (0.40-1.00); Globulin, Blood 3.7 g/dL (2.2-4.0); Glomerular Filtration Rate >60 (60-); Glucose, Blood 87 mg/dL (70-99); Potassium, Blood 3.5 mmol/L (3.5-5.5); Sodium, Blood 141 mmol/L (136-145); Total Protein, Blood 6.6 g/dL (6.4-8.2)
[2019-12-10] MEDS ORDERED: AMOX875 PO (13:05)
--- NOTE | 2019-12-10 15:12 | NUR ---
PT DISCHARGED TO HOME. PT INDEPENDENT IN ROOM PRIOR TO DISCHARGE. PT HAS WENT ON MULTIPLE WALKS IN THE ESPIT[place] THE LAST COUPLE DAYS, PT DENIED USE OF WHEELCHAIR UPON DISCHARGE. PT ESCORTED TO VEHICLE BY NURSE, NURSE CARRIED BELONGINGS. POWERGLIDE REMOVED PRIOR TO DISCHARGE. PT DENIED REVIEW OF DISCHARGE MATERIAL STATING THAT SHE ALWAYS READS OVER THE DISCHARGE PAPERWORK. PT BROUGHT VEHICLE FOR TRANSPORTATION.
== END 2019-12-10 13:25 | disposition home or self-care (01) | DRG 872 ==
LOC: ER 11:39 → MEDS 14:12 → ENPENDDIS 12-10 10:00 → MEDS 12-10 13:25
PROVIDERS: Emergency Medicine; Family Medicine; ADMIT Student in an Organized Health Care Education/Training Program
DX: A41.51 Sepsis due to Escherichia coli [E. coli] (principal); N39.0 Urinary tract infection, site not specified; R65.20 Severe sepsis without septic shock; K22.0 Achalasia of cardia; N95.2 Postmenopausal atrophic vaginitis; F41.9 Anxiety disorder, unspecified; I10 Essential (primary) hypertension; E78.5 Hyperlipidemia, unspecified; G47.33 Obstructive sleep apnea (adult) (pediatric); K21.9 Gastro-esophageal reflux disease without esophagitis; G25.81 Restless legs syndrome; F32.9 Major depressive disorder, single episode, unspecified; Z98.84 Bariatric surgery status; Z87.891 Personal history of nicotine dependence; Z88.6 Allergy status to analgesic agent; Z88.1 Allergy status to other antibiotic agents; Z88.2 Allergy status to sulfonamides; Z88.8 Allergy status to other drugs, medicaments and biological substances; Z79.51 Long term (current) use of inhaled steroids; Z79.899 Other long term (current) drug therapy
CPT/HCPCS: 36415; 71046; 80048; 80053; 80069; 81001; 82306; 83605; 83880; 84484; 85018; 85025; 87040; 87077; 87086; 87186; 93005; 93010; 96361; 96365; 96375; 99285-25; A9270; J0290; J1650; J2185; J2405; J7030

== ENCOUNTER 2019-12-29 05:19 | Inpatient (IN) | payer MEDICARE, OTHER ==
[~2019-12-29] VITALS: Ht 160 cm; Wt 77.1 kg
[~2019-12-29 05:19] MED LIST changes: +ALPRAZOLAM0.5 M1 PO; +AMOX875 PO; -VENLAFAXINE HCL75 MG PO
[2019-12-29 05:50] LABS: Hematocrit 36.2 % (33.0-51.0); Hemoglobin 11.8 g/dL (11.5-16.0); Mean Corpuscular HGB 29.1 pg (26.0-34.0); Mean Corpuscular HGB Conc 32.6 g/dL (31.5-36.5); Mean Corpuscular Volume 89 fL (80-100); Mean Platelet Volume 9.4 fL (9.1-12.4); Platelet Count 328 K/mm3 (150-400); RDW Coefficient Variation 12.8 % (11.7-14.2); RDW Standard Deviation 41.8 fL (35.1-46.3); Red Blood Cell Count 4.06 M/mm3 (3.80-5.20); White Blood Cell Count 9.05 K/mm3 (4.00-11.30)
[2019-12-29 06:04] LABS: Alanine Aminotransfer (ALT/SGP 13 U/L (12-78); Albumin, Blood 3.5 g/dL (3.4-5.0); Alk Phos 83 U/L (50-136); Anion Gap 11 mmol/L (6-16); Aspartate Aminotrans (AST/SGOT 12 U/L (12-37); Bilirubin, Total 0.7 mg/dL (0.1-1.0); Blood Urea Nitrogen 13 mg/dL (8-24); CO2, Blood 24 mmol/L (21-32); Calcium, Blood 8.8 mg/dL (8.5-10.1); Chloride, Blood 104 mmol/L (98-108); Creatinine, Blood 0.65 mg/dL (0.40-1.00); Globulin, Blood 3.6 g/dL (2.2-4.0); Glomerular Filtration Rate >60 (60-); Glucose, Blood 135 mg/dL (70-99); Potassium, Blood 3.5 mmol/L (3.5-5.5); Sodium, Blood 139 mmol/L (136-145); Total Protein, Blood 7.1 g/dL (6.4-8.2)
[2019-12-29 06:06] LABS: Source, Urine Catheter
[2019-12-29 06:09] LABS: BAND PERCENT MAN 21 % (0-8); BASOPHILS PERCENT MAN 0 % (0-2); EOSINOPHILS PERCENT MAN 0 % (0-6); LYMPHOCYTES ABSOLUTE MAN 0.45 K/mm3 (0.84-5.20); LYMPHOCYTES PERCENT MAN 5 % (21-46); MONOCYTES ABSOLUTE MAN 0.09 K/mm3 (0.16-1.47); MONOCYTES PERCENT MAN 1 % (4-13); SEG NEUTROPHILS PERCENT MAN 73 % (41-73); TOTAL CELLS COUNTED 100
[2019-12-29 06:11] LABS: Bilirubin, Urine Neg (Neg); Blood, Urine 1+ (Neg); Glucose Qualitative, Urine Neg (Neg); Ketones, Urine Neg (Neg); Leukocyte Esterase, Urine 1+ (Neg); Nitrite, Urine Neg (Neg); Protein, Urine Neg (Neg); Specific Gravity, Urine 1.015 (1.003-1.022); Urobilinogen, Urine NORM (Normal)
[2019-12-29 06:18] LABS: Appearance, Urine Clear (Clear); Color, Urine Yellow (P-Yellow)
[2019-12-29 06:19] LABS: Bacteria Few /hpf; Red Blood Cells, Urine 0-2 /hpf (0-2); Squamous Epithelial Cells Rare /hpf (Few); White Blood Cells, Urine 0-2 /hpf (0-5)
[2019-12-29 06:26] LABS: Influenza A Negative (NEGATIVE); Influenza B Negative (NEGATIVE)
[2019-12-29] MEDS ORDERED: VENLAFAXINE HCL75 M1 PO (11:52)
--- NOTE | 2019-12-29 19:19 | NUR ---
SHIFT SUMMARY PT IS A NEW ADMISSION FROM ED. PT IS ALERT AND ORIENTED X4. NO COMPLAINTS OF SHORTNESS OF BREATH AT THIS TIME. PT SLEEPING AT THIS TIME. IVF INFUSING WITHOUT DIFFICULTY. PT WAS ORIENTED TO CALL LIGHT AND ROOM. CALL LIGHT IN REACH AND REPORT GIVEN TO MAUREEN OSEI.
--- NOTE | 2019-12-30 05:07 | NUR ---
SHIFT SUMMARY: RANJAN. AFEB. 02 SAT 92-93% ON RA. PT STATES SHE SLEPT VERY WELL. RECEIVED PRN XANAX FOR ANXIETY AT HS AND FELL ASLEEP SHORTLY AFTER. HOB REMAINS >30 DEGREES PER PT PREFERENCE. PT SNORING- STATES SHE DOES NOT WEAR A CPAP DESPITE SYEDA. INDEPENDENT IN ROOM. COARSE RHONCHI AUSCULTED IN RML, RLL, LLL. OCC. COUGH, NON-PRODUCTIVE. NO ACUTE CHANGES OVERNIGHT, WILL CONT TO MONITOR.
[2019-12-30 05:27] LABS: BASOPHILS ABSOLUTE AUTO 0.04 K/mm3 (0.00-0.23); BASOPHILS PERCENT AUTO 0 % (0-2); EOSINOPHILS ABSOLUTE AUTO 0.17 K/mm3 (0.00-0.68); EOSINOPHILS PERCENT AUTO 1 % (0-6); Hematocrit 31.9 % (33.0-51.0); Hemoglobin 9.9 g/dL (11.5-16.0); IMMATURE GRAN ABSOLUTE AUTO 0.07 K/mm3 (0.00-0.10); IMMATURE GRAN PERCENT AUTO 1 % (0-1); LYMPHOCYTES ABSOLUTE AUTO 1.88 K/mm3 (0.84-5.20); LYMPHOCYTES PERCENT AUTO 13 % (21-46); MONOCYTES ABSOLUTE AUTO 0.71 K/mm3 (0.16-1.47); MONOCYTES PERCENT AUTO 5 % (4-13); Mean Corpuscular HGB 28.9 pg (26.0-34.0); Mean Platelet Volume 9.8 fL (9.1-12.4); NEUTROPHILS ABSOLUTE AUTO 11.29 K/mm3 (1.96-9.15); NEUTROPHILS PERCENT AUTO 80 % (41-73); Platelet Count 300 K/mm3 (150-400); RDW Coefficient Variation 13.2 % (11.7-14.2); RDW Standard Deviation 45.1 fL (35.1-46.3); Red Blood Cell Count 3.43 M/mm3 (3.80-5.20); White Blood Cell Count 14.16 K/mm3 (4.00-11.30)
[2019-12-30 05:28] LABS: Mean Corpuscular Volume 93 fL (80-100)
[2019-12-30 05:37] LABS: Alanine Aminotransfer (ALT/SGP 11 U/L (12-78); Albumin, Blood 2.7 g/dL (3.4-5.0); Albumin/Globulin Ratio 0.8 (0.8-1.8); Alk Phos 64 U/L (50-136); Anion Gap 4 mmol/L (6-16); Aspartate Aminotrans (AST/SGOT 8 U/L (12-37); Blood Urea Nitrogen 10 mg/dL (8-24); Bun/Creatinine Ratio 11.7 (12.0-20.0); CO2, Blood 27 mmol/L (21-32); Calcium, Blood 8.3 mg/dL (8.5-10.1); Chloride, Blood 109 mmol/L (98-108); Creatinine, Blood 0.86 mg/dL (0.40-1.00); Globulin, Blood 3.6 g/dL (2.2-4.0); Glomerular Filtration Rate >60 (60-); Glucose, Blood 109 mg/dL (70-99); Potassium, Blood 3.6 mmol/L (3.5-5.5); Sodium, Blood 140 mmol/L (136-145); Total Protein, Blood 6.3 g/dL (6.4-8.2)
--- NOTE | 2019-12-30 18:56 | NUR ---
SHIFT SUMMARY PT HAVING LOOSE STOOL AND N/V THIS EVENING. DR. CHILDS WAS NOTIFIED OF THIS AND NEW ORDERS PLACED. SEE PHYSICIAN ORDERS. CDIFF SAMPLE SENT AND WAITING FOR RESULTS. PT HAS BEEN SLEEPING THIS EVENING AND DECLINED DINNER. NO MORE VOMITING SINCE EARLIER WHEN PT HAD LARGE AMOUNTS OF LOOSE STOOL. IVF INFUSING WITHOUT DIFFICULTY. NO ACUTE CHANGES AT THIS TIME. CALL LIGHT IN REACH. WILL CONTINUE TO MONITOR AND REPORT TO ONCOMING RN.
[2019-12-30 19:07] LABS: Adenovirus F 40/41 Not Detected (NOT DETECT); Astrovirus Not Detected (NOT DETECT); Campylobacter Sp Not Detected (NOT DETECT); Cryptosporidium Not Detected (NOT DETECT); Cyclospora Cayetanensis Not Detected (NOT DETECT); E. Coli O157 Not Detected (NOT DETECT); Entamoeba Histolytica Not Detected (NOT DETECT); Enteroaggregative E. coli-EAEC Not Detected (NOT DETECT); Enteropathogenic E. coli-EPEC Not Detected (NOT DETECT); Enterotoxigenic E. coli-ETEC Not Detected (NOT DETECT); Giardia Lamblia Not Detected (NOT DETECT); Norovirus GI/GII Not Detected (NOT DETECT); Plesiomonas Shigelloides Not Detected (NOT DETECT); Rotavirus A Not Detected (NOT DETECT); Salmonella Sp Not Detected (NOT DETECT); Sapovirus Not Detected (NOT DETECT); Shiga Toxin-prod E. coli-STEC Not Detected (NOT DETECT); Shigella/Enteroin E. coli-EIEC Not Detected (NOT DETECT); Vibrio Cholerae Not Detected (NOT DETECT); Vibrio Sp Not Detected (NOT DETECT); Yersinia Enterocolitica Not Detected (NOT DETECT)
[2019-12-31 05:08] LABS: BASOPHILS ABSOLUTE AUTO 0.02 K/mm3 (0.00-0.23); BASOPHILS PERCENT AUTO 0 % (0-2); EOSINOPHILS ABSOLUTE AUTO 0.25 K/mm3 (0.00-0.68); EOSINOPHILS PERCENT AUTO 2 % (0-6); Hemoglobin 9.1 g/dL (11.5-16.0); IMMATURE GRAN ABSOLUTE AUTO 0.06 K/mm3 (0.00-0.10); IMMATURE GRAN PERCENT AUTO 1 % (0-1); LYMPHOCYTES PERCENT AUTO 14 % (21-46); MONOCYTES ABSOLUTE AUTO 0.74 K/mm3 (0.16-1.47); MONOCYTES PERCENT AUTO 7 % (4-13); Mean Corpuscular HGB 28.3 pg (26.0-34.0); Mean Corpuscular HGB Conc 31.4 g/dL (31.5-36.5); Mean Platelet Volume 9.9 fL (9.1-12.4); NEUTROPHILS ABSOLUTE AUTO 7.88 K/mm3 (1.96-9.15); NEUTROPHILS PERCENT AUTO 76 % (41-73); Platelet Count 260 K/mm3 (150-400); RDW Coefficient Variation 12.7 % (11.7-14.2); RDW Standard Deviation 41.5 fL (35.1-46.3); Red Blood Cell Count 3.21 M/mm3 (3.80-5.20); White Blood Cell Count 10.35 K/mm3 (4.00-11.30)
[2019-12-31 05:11] LABS: Mean Corpuscular Volume 90 fL (80-100)
--- NOTE | 2019-12-31 05:21 | NUR ---
SHIFT SUMMARY: VSS. AFEB. A/OX4. 02 92-95% ON RA. LSCTA. PT STATES COUGH IS STILL PRODUCTIVE BUT IS IMPROVING. REPORTS SMALL AMTS OF WHITE-BROWN COLORED SPUTUM. CONT W/ NAUSEA AND HAD 1 SMALL EMESIS TONIGHT. ZOFRAN ADMINISTERED W/GOOD EFFECT. PT DEVELOPED PAIN AND LEAKING AT PERIPHERAL IV SITE. IV FLUIDS STOPPED. MIDLINE IV ATTEMPTED BY RELATIONSHIP SPECIALIST WITHOUT SUCCESS. PT DID NOT RECEIVE MIDNIGHT ANTIBIOTIC AND WILL BE LATE RECEIVING 0600 ANTIBIOTIC PENDING MIDLINE IV PLACEMENT THIS MORNING. PT PRESENTLY SLEEPING. WILL CONT TO MONITOR.
[2019-12-31 05:39] LABS: Alanine Aminotransfer (ALT/SGP 10 U/L (12-78); Albumin, Blood 2.6 g/dL (3.4-5.0); Albumin/Globulin Ratio 0.8 (0.8-1.8); Alk Phos 64 U/L (50-136); Anion Gap 8 mmol/L (6-16); Aspartate Aminotrans (AST/SGOT 6 U/L (12-37); Bilirubin, Total 0.4 mg/dL (0.1-1.0); Blood Urea Nitrogen 6 mg/dL (8-24); Bun/Creatinine Ratio 9.9 (12.0-20.0); CO2, Blood 23 mmol/L (21-32); Calcium, Blood 8.3 mg/dL (8.5-10.1); Chloride, Blood 108 mmol/L (98-108); Creatinine, Blood 0.61 mg/dL (0.40-1.00); Globulin, Blood 3.4 g/dL (2.2-4.0); Glomerular Filtration Rate >60 (60-); Glucose, Blood 86 mg/dL (70-99); Magnesium, Blood 1.9 mg/dL (1.6-2.4); Phosphorus, Blood 2.6 mg/dL (2.5-4.9); Potassium, Blood 3.5 mmol/L (3.5-5.5); Sodium, Blood 139 mmol/L (136-145)
--- NOTE | 2019-12-31 10:46 | NUR ---
DR NOTIFIED PT REQUESTING IV ZOSYN TO BE STOPPED, PT UNABLE TO TOLORATE WITH DIARRHEA. DR. HUDSON CALLED AND WILL D/C.
--- NOTE | 2019-12-31 17:17 | NUR ---
SHIFT SUMMARY PT HAS BEEN NAUSEATED DURING THE SHIFT AND MEDICATED X1 FOR VOMITING. PT REQUESTED IV ZOSYN TO BE CHANGED FOR GI UPSET, DR HUDSON NOTIFIED AND MEDS CHANGED. PT STILL WANTING TO EAT FOOD TOLORATED. PT HAS CALL LIGHT WITH IN REACH WILL REPORT TO ONCOMING SHIFT.
--- NOTE | 2020-01-01 04:21 | NUR ---
SHIFT SUMMARY PATIENT HAD NO ACUTE CHANGES OBSERVED. AXOX 3 AND INDEPENDENT IN THE ROOM. REPORTED GERONIMO AND RECEIVED TYLENOL PER EMAR AND IV ZOFRAN FOR N/V X ONE. POWERGLIDE SILVIO INTACT. DENIES SOB AND ON ROOM AIR. VSS/AFEBRILE. COOPERATIVE WITH CARE. CALL LIGHT IN REACH. BED IN LOWEST POSITION. WILL CONTINUE TO MONITOR UNTIL DAY SHIFT NURSE ASSUMES CARE.
[2020-01-01 06:12] LABS: BASOPHILS ABSOLUTE AUTO 0.02 K/mm3 (0.00-0.23); BASOPHILS PERCENT AUTO 0 % (0-2); EOSINOPHILS ABSOLUTE AUTO 0.22 K/mm3 (0.00-0.68); EOSINOPHILS PERCENT AUTO 3 % (0-6); Hematocrit 28.7 % (33.0-51.0); IMMATURE GRAN ABSOLUTE AUTO 0.03 K/mm3 (0.00-0.10); IMMATURE GRAN PERCENT AUTO 0 % (0-1); LYMPHOCYTES ABSOLUTE AUTO 1.33 K/mm3 (0.84-5.20); LYMPHOCYTES PERCENT AUTO 17 % (21-46); MONOCYTES ABSOLUTE AUTO 0.64 K/mm3 (0.16-1.47); MONOCYTES PERCENT AUTO 8 % (4-13); Mean Corpuscular HGB Conc 31.4 g/dL (31.5-36.5); Mean Corpuscular Volume 89 fL (80-100); NEUTROPHILS PERCENT AUTO 72 % (41-73); Platelet Count 260 K/mm3 (150-400); RDW Coefficient Variation 12.6 % (11.7-14.2); RDW Standard Deviation 40.9 fL (35.1-46.3); Red Blood Cell Count 3.22 M/mm3 (3.80-5.20); White Blood Cell Count 7.94 K/mm3 (4.00-11.30)
[2020-01-01 06:28] LABS: Anion Gap 7 mmol/L (6-16); Blood Urea Nitrogen 4 mg/dL (8-24); Bun/Creatinine Ratio 6.2 (12.0-20.0); CO2, Blood 26 mmol/L (21-32); Calcium, Blood 8.5 mg/dL (8.5-10.1); Chloride, Blood 106 mmol/L (98-108); Creatinine, Blood 0.64 mg/dL (0.40-1.00); Glomerular Filtration Rate >60 (60-); Glucose, Blood 86 mg/dL (70-99); Potassium, Blood 3.4 mmol/L (3.5-5.5); Sodium, Blood 139 mmol/L (136-145)
[2020-01-01] MEDS ORDERED: BENZ100A PO (15:37)
[2020-01-01] MEDS ORDERED: GUAIFENESIN-DM 15 ML PO (15:39)
[2020-01-01] MEDS ORDERED: Invanz1 GM IV (15:41)
--- NOTE | 2020-01-01 18:07 | NUR ---
PATIENT DISCHARGED HOME, MEDICATIONS FAXED TO PHARMACY, POWERGLIDE LEFT IN PLACE FOR OUTPATIENT IV ANTIBIOTICS.
[2020-01-02] MEDS ORDERED: ASCO500 PO (15:45)
== END 2020-01-01 17:23 | disposition home or self-care (01) | DRG 871 ==
LOC: ER 05:19 → ERHOLD 07:04 → MEDS 17:33
PROVIDERS: Emergency Medicine; Family Medicine; ADMIT Hospitalist
PROC: 05H933Z Insertion of Infusion Device into Right Brachial Vein, Percutaneous Approach (ICD-10-PCS; principal; 2019-12-29)
DX: A41.9 Sepsis, unspecified organism (principal); J69.0 Pneumonitis due to inhalation of food and vomit; E87.2 Acidosis; F41.9 Anxiety disorder, unspecified; G47.33 Obstructive sleep apnea (adult) (pediatric); Z98.84 Bariatric surgery status; G25.81 Restless legs syndrome; K21.9 Gastro-esophageal reflux disease without esophagitis; B96.20 Unspecified Escherichia coli [E. coli] as the cause of diseases classified elsewhere; Z88.1 Allergy status to other antibiotic agents; Z88.2 Allergy status to sulfonamides; Z87.891 Personal history of nicotine dependence; R19.7 Diarrhea, unspecified; D64.9 Anemia, unspecified; E88.09 Other disorders of plasma-protein metabolism, not elsewhere classified
CPT/HCPCS: 0097U; 36415; 71045; 71046; 73060; 74230; 80048; 80053; 81001; 83605; 83735; 84100; 84145; 85025; 86140; 87040; 87070; 87077; 87081; 87086; 87186; 87205; 87804; 92611; 93005; 93010; 94640; 94760; 96361; 96372-59; 96374; 96376; 99285-25; A9270; A9270-GY; C9113; J0456; J0696; J1335; J1650; J2405; J2543; J7030; J7050; J7120

== ENCOUNTER 2020-01-02 07:37 | Day surgery (SDC) | payer MEDICARE, OTHER ==
[~2020-01-02 07:37] MED LIST changes: +BENZ100A PO; +GUAIFENESIN-DM 15 ML PO; +Invanz1 GM IV; +VENLAFAXINE HCL75 M1 PO
[2020-01-02] MEDS ORDERED: ASCO500 PO (15:45)
== END 2020-01-02 22:37 | disposition home or self-care (01) ==
LOC: ATC 07:37
DX: J15.5 Pneumonia due to Escherichia coli (principal); K21.9 Gastro-esophageal reflux disease without esophagitis; G47.33 Obstructive sleep apnea (adult) (pediatric); F32.9 Major depressive disorder, single episode, unspecified; F41.9 Anxiety disorder, unspecified; Z98.84 Bariatric surgery status; G25.81 Restless legs syndrome; Z87.891 Personal history of nicotine dependence; Z88.2 Allergy status to sulfonamides; Z88.8 Allergy status to other drugs, medicaments and biological substances; Z88.6 Allergy status to analgesic agent; Z88.1 Allergy status to other antibiotic agents; Z91.041 Radiographic dye allergy status; Z79.899 Other long term (current) drug therapy

== ENCOUNTER 2020-01-03 10:39 | Day surgery (SDC) | payer MEDICARE, OTHER ==
[~2020-01-03 10:39] MED LIST changes: +ASCO500 PO
== END 2020-01-03 11:38 | disposition home or self-care (01) ==
LOC: ATC 10:39
DX: J15.5 Pneumonia due to Escherichia coli (principal)
CPT/HCPCS: 96365; J1335

== ENCOUNTER 2020-01-04 01:15 | Day surgery (SDC) | payer MEDICARE, OTHER | END 2020-01-04 12:06 | disposition home or self-care (01) | LOC: ATC 01:15 | DX: J15.5 Pneumonia due to Escherichia coli (principal); Z88.8 Allergy status to other drugs, medicaments and biological substances; Z88.1 Allergy status to other antibiotic agents; Z88.2 Allergy status to sulfonamides; Z88.6 Allergy status to analgesic agent | CPT/HCPCS: 96365; J1335 ==

== ENCOUNTER 2020-01-05 00:13 | Day surgery (SDC) | payer MEDICARE, OTHER | END 2020-01-05 10:46 | disposition home or self-care (01) | LOC: ATC 00:13 | DX: J15.5 Pneumonia due to Escherichia coli (principal); F41.9 Anxiety disorder, unspecified; G25.81 Restless legs syndrome; A41.51 Sepsis due to Escherichia coli [E. coli]; Z88.6 Allergy status to analgesic agent; Z88.1 Allergy status to other antibiotic agents; Z98.84 Bariatric surgery status; Z88.8 Allergy status to other drugs, medicaments and biological substances; Z88.2 Allergy status to sulfonamides; Z91.041 Radiographic dye allergy status | CPT/HCPCS: 96365; J1335 ==

== ENCOUNTER 2020-01-06 00:08 | Day surgery (SDC) | payer MEDICARE, OTHER | END 2020-01-06 16:33 | disposition home or self-care (01) | LOC: ATC 00:08 | DX: J69.0 Pneumonitis due to inhalation of food and vomit (principal); A41.9 Sepsis, unspecified organism; G25.81 Restless legs syndrome; F41.9 Anxiety disorder, unspecified; Z79.899 Other long term (current) drug therapy; Z88.1 Allergy status to other antibiotic agents; Z88.2 Allergy status to sulfonamides; Z88.3 Allergy status to other anti-infective agents; Z88.6 Allergy status to analgesic agent; Z88.8 Allergy status to other drugs, medicaments and biological substances; Z91.048 Other nonmedicinal substance allergy status; Z98.84 Bariatric surgery status | CPT/HCPCS: 96365; J1335 ==

== ENCOUNTER 2020-01-07 00:41 | Day surgery (SDC) | payer MEDICARE, OTHER | END 2020-01-07 14:47 | disposition home or self-care (01) | LOC: ATC 00:41 | DX: J15.5 Pneumonia due to Escherichia coli (principal); G47.33 Obstructive sleep apnea (adult) (pediatric); K21.9 Gastro-esophageal reflux disease without esophagitis; F32.9 Major depressive disorder, single episode, unspecified; Z87.891 Personal history of nicotine dependence; Z88.2 Allergy status to sulfonamides; Z88.8 Allergy status to other drugs, medicaments and biological substances; Z88.6 Allergy status to analgesic agent; Z88.1 Allergy status to other antibiotic agents; Z91.041 Radiographic dye allergy status; Z79.899 Other long term (current) drug therapy; F41.9 Anxiety disorder, unspecified; G25.81 Restless legs syndrome; Z98.84 Bariatric surgery status | CPT/HCPCS: 96365; J1335 ==

== ENCOUNTER 2020-01-08 02:13 | Day surgery (SDC) | payer MEDICARE, OTHER | END 2020-01-08 10:35 | disposition home or self-care (01) | LOC: ATC 02:13 | DX: J15.5 Pneumonia due to Escherichia coli (principal); K21.9 Gastro-esophageal reflux disease without esophagitis; G47.33 Obstructive sleep apnea (adult) (pediatric); F41.9 Anxiety disorder, unspecified; Z87.891 Personal history of nicotine dependence; Z88.2 Allergy status to sulfonamides; Z88.1 Allergy status to other antibiotic agents; Z88.6 Allergy status to analgesic agent; Z88.8 Allergy status to other drugs, medicaments and biological substances; Z79.899 Other long term (current) drug therapy | CPT/HCPCS: 96365; J1335 ==

== ENCOUNTER 2020-01-10 00:15 | Day surgery (SDC) | payer MEDICARE, OTHER | END 2020-01-10 11:53 | disposition home or self-care (01) | LOC: ATC 00:15 | DX: J15.5 Pneumonia due to Escherichia coli (principal); K21.9 Gastro-esophageal reflux disease without esophagitis; F32.9 Major depressive disorder, single episode, unspecified; G47.33 Obstructive sleep apnea (adult) (pediatric); Z87.891 Personal history of nicotine dependence; Z88.2 Allergy status to sulfonamides; Z88.8 Allergy status to other drugs, medicaments and biological substances; Z88.4 Allergy status to anesthetic agent; Z88.1 Allergy status to other antibiotic agents; Z91.041 Radiographic dye allergy status; Z79.899 Other long term (current) drug therapy; G25.81 Restless legs syndrome; Z98.84 Bariatric surgery status; F41.9 Anxiety disorder, unspecified | CPT/HCPCS: J1335 ==

== ENCOUNTER 2020-01-15 00:26 | Day surgery (SDC) | payer MEDICARE, OTHER | END 2020-01-15 13:11 | disposition home or self-care (01) | LOC: ATC 00:26 | DX: J15.5 Pneumonia due to Escherichia coli (principal); G47.33 Obstructive sleep apnea (adult) (pediatric); K21.9 Gastro-esophageal reflux disease without esophagitis; F32.9 Major depressive disorder, single episode, unspecified; F41.9 Anxiety disorder, unspecified; G25.81 Restless legs syndrome; A41.51 Sepsis due to Escherichia coli [E. coli]; Z87.891 Personal history of nicotine dependence; Z88.2 Allergy status to sulfonamides; Z88.8 Allergy status to other drugs, medicaments and biological substances; Z88.6 Allergy status to analgesic agent; Z91.041 Radiographic dye allergy status; Z79.899 Other long term (current) drug therapy; Z98.84 Bariatric surgery status ==

== ENCOUNTER → 2020-01-15 | Outpatient (CLI) | payer MEDICARE, OTHER ==
[2020-01-15 11:51] LABS: BASOPHILS ABSOLUTE AUTO 0.03 K/mm3 (0.00-0.23); BASOPHILS PERCENT AUTO 0 % (0-2); EOSINOPHILS ABSOLUTE AUTO 0.08 K/mm3 (0.00-0.68); EOSINOPHILS PERCENT AUTO 1 % (0-6); Hematocrit 37.5 % (33.0-51.0); Hemoglobin 12.1 g/dL (11.5-16.0); IMMATURE GRAN ABSOLUTE AUTO 0.07 K/mm3 (0.00-0.10); IMMATURE GRAN PERCENT AUTO 1 % (0-1); LYMPHOCYTES ABSOLUTE AUTO 1.12 K/mm3 (0.84-5.20); LYMPHOCYTES PERCENT AUTO 8 % (21-46); MONOCYTES ABSOLUTE AUTO 0.97 K/mm3 (0.16-1.47); MONOCYTES PERCENT AUTO 7 % (4-13); Mean Corpuscular HGB 28.5 pg (26.0-34.0); Mean Corpuscular HGB Conc 32.3 g/dL (31.5-36.5); Mean Corpuscular Volume 88 fL (80-100); Mean Platelet Volume 8.9 fL (9.1-12.4); NEUTROPHILS ABSOLUTE AUTO 12.71 K/mm3 (1.96-9.15); NEUTROPHILS PERCENT AUTO 85 % (41-73); Platelet Count 338 K/mm3 (150-400); RDW Coefficient Variation 13.2 % (11.7-14.2); RDW Standard Deviation 42.7 fL (35.1-46.3); Red Blood Cell Count 4.25 M/mm3 (3.80-5.20); White Blood Cell Count 14.98 K/mm3 (4.00-11.30)
[2020-01-15 12:01] LABS: Alanine Aminotransfer (ALT/SGP 19 U/L (12-78); Albumin, Blood 3.7 g/dL (3.4-5.0); Albumin/Globulin Ratio 0.8 (0.8-1.8); Alk Phos 88 U/L (40-126); Anion Gap 10 mmol/L (6-16); Aspartate Aminotrans (AST/SGOT 19 U/L (12-37); Bilirubin, Total 0.7 mg/dL (0.1-1.0); Blood Urea Nitrogen 10 mg/dL (8-24); Bun/Creatinine Ratio 14.1 (12.0-20.0); CO2, Blood 28 mmol/L (21-32); Calcium, Blood 9.2 mg/dL (8.5-10.1); Chloride, Blood 102 mmol/L (98-108); Creatinine, Blood 0.71 mg/dL (0.40-1.00); Globulin, Blood 4.5 g/dL (2.2-4.0); Glomerular Filtration Rate >60 (60-); Glucose, Blood 96 mg/dL (70-99); Potassium, Blood 4.1 mmol/L (3.5-5.5); Sodium, Blood 140 mmol/L (136-145); Total Protein, Blood 8.2 g/dL (6.4-8.2)
== END | disposition home or self-care (01) ==
LOC: LAB SHORT 11:47 → LAB EV 11:47
PROVIDERS: Physician Assistant
DX: R05 Cough (principal); R82.90 Unspecified abnormal findings in urine
CPT/HCPCS: 80053; 85025; 87077; 87086; 87186

== ENCOUNTER 2020-01-20 00:09 | Day surgery (SDC) | payer MEDICARE, OTHER | END 2020-01-20 10:26 | disposition home or self-care (01) | LOC: ATC 00:09 | DX: A41.9 Sepsis, unspecified organism (principal); J15.5 Pneumonia due to Escherichia coli; K21.9 Gastro-esophageal reflux disease without esophagitis; G47.33 Obstructive sleep apnea (adult) (pediatric); F32.9 Major depressive disorder, single episode, unspecified; M85.80 Other specified disorders of bone density and structure, unspecified site; Z87.891 Personal history of nicotine dependence; Z88.8 Allergy status to other drugs, medicaments and biological substances; Z88.6 Allergy status to analgesic agent; Z91.041 Radiographic dye allergy status; Z88.1 Allergy status to other antibiotic agents; Z88.2 Allergy status to sulfonamides; Z79.51 Long term (current) use of inhaled steroids; Z79.899 Other long term (current) drug therapy | CPT/HCPCS: 99211 ==

== ENCOUNTER 2020-01-26 00:07 | Day surgery (SDC) | payer MEDICARE, OTHER ==
--- NOTE | 2020-01-26 11:20 | NUR ---
PT DISCHARGED IN STABLE CONDITION PT TEACHING IV SITE, VERBALIZES UNDERSTANDING PT DISCHARGED 01/26/20 @ 1100.
== END 2020-01-26 11:00 | disposition home or self-care (01) ==
LOC: ATC 00:07
DX: A41.51 Sepsis due to Escherichia coli [E. coli] (principal); J15.5 Pneumonia due to Escherichia coli; G47.33 Obstructive sleep apnea (adult) (pediatric); K21.9 Gastro-esophageal reflux disease without esophagitis; F32.9 Major depressive disorder, single episode, unspecified; Z87.891 Personal history of nicotine dependence; Z88.2 Allergy status to sulfonamides; Z88.8 Allergy status to other drugs, medicaments and biological substances; Z88.6 Allergy status to analgesic agent; Z88.1 Allergy status to other antibiotic agents; Z91.041 Radiographic dye allergy status; F41.9 Anxiety disorder, unspecified; Z98.84 Bariatric surgery status; Z79.899 Other long term (current) drug therapy
CPT/HCPCS: 99211

== ENCOUNTER 2020-02-02 11:16 | Day surgery (SDC) | payer MEDICARE, OTHER ==
--- NOTE | 2020-02-02 11:48 | NUR ---
PT REPORTS THE TEGADERM DRESSING ON THE UPPER EDGE OF HER POWER GLIDE NEAREST HER AXILLA WAS PINCHING HER SKIN AND SHE PEELED IT BACK. THE UNDERLYING DRESSING IS STILL INTACT AND ATTACHED. REINFORCED TOP EDGE OF DRESSING WITH NEW TEGADERM DRESSING.
== END 2020-02-02 22:45 | disposition home or self-care (01) ==
LOC: ATC 11:16
DX: A41.9 Sepsis, unspecified organism (principal); J18.9 Pneumonia, unspecified organism; F32.9 Major depressive disorder, single episode, unspecified; K21.9 Gastro-esophageal reflux disease without esophagitis; G25.81 Restless legs syndrome; F41.9 Anxiety disorder, unspecified; Z87.891 Personal history of nicotine dependence; Z88.8 Allergy status to other drugs, medicaments and biological substances; Z88.2 Allergy status to sulfonamides; Z88.6 Allergy status to analgesic agent; Z88.1 Allergy status to other antibiotic agents; Z91.041 Radiographic dye allergy status; Z98.84 Bariatric surgery status; Z79.899 Other long term (current) drug therapy

== ENCOUNTER → 2020-08-29 | Outpatient (CLI) | payer MEDICARE, OTHER | END | disposition home or self-care (01) | LOC: LAB SHORT 14:55 → PLD 14:55 | DX: L57.8 Other skin changes due to chronic exposure to nonionizing radiation (principal) | CPT/HCPCS: 88305 ==

== ENCOUNTER → 2020-09-13 | Outpatient (CLI) | payer MEDICARE, OTHER ==
[~2020-09-13] MED LIST changes: +D-MANNOSE PO; +EPIPEN 2-P0.3 MG/0.1 IM; +FLONASE SENSIM5.9 M1; +LEVALBUTER0.31 MG/1 INH; +Lisinopril2.5 MG PO; +SPIRIVA RESPIMAT4 G2; +TUMERIC PO; +TUMS500 MG PO; +VITAMIN C125 MG PO; +VITAMIN D325 MC3 PO; +Voltaren100 GM; +ZYRTEC10 M1 PO
== END | disposition home or self-care (01) ==
LOC: PLD 09:12 → LAB SHORT 09:12
DX: L72.9 Follicular cyst of the skin and subcutaneous tissue, unspecified (principal)
CPT/HCPCS: 88304

== ENCOUNTER 2020-10-23 07:38 | Day surgery (SDC) | payer MEDICARE, OTHER ==
[~2020-10-23] VITALS: Ht 157.5 cm; Wt 79.1 kg
--- NOTE | 2020-10-23 08:12 | NUR ---
10/23/20 0812 ABIEL MCKEON ONE ATTEMPT BY JAMESON IN RH VALVE ONE SUCCESSFUL BY RN IN LAC PT TOW
== END 2020-10-23 09:25 | disposition home or self-care (01) ==
LOC: ORSCSDS 07:38
PROVIDERS: Internal Medicine Gastroenterology
PROC: 0DJ08ZZ Inspection of Upper Intestinal Tract, Via Natural or Artificial Opening Endoscopic (ICD-10-PCS; principal; 2020-10-23 08:45)
DX: R13.10 Dysphagia, unspecified (principal); Z98.84 Bariatric surgery status
CPT/HCPCS: J0330; J0461; J2405; J2704; J7120

== ENCOUNTER 2020-11-10 08:59 | Inpatient (IN) | payer MEDICARE, OTHER ==
[~2020-11-10] VITALS: Ht 157.5 cm; Wt 79.4 kg
[~2020-11-10 08:59] MED LIST changes: -D-MANNOSE PO; +D-MANNOSE UD; -SPIRIVA RESPIMAT4 G2; +SPIRIVA RESPIMAT4 G2 INH; -Voltaren100 GM
[2020-11-10 09:48] LABS: BASOPHILS ABSOLUTE AUTO 0.03 K/mm3 (0.00-0.23); BASOPHILS PERCENT AUTO 0 % (0-2); EOSINOPHILS ABSOLUTE AUTO 0.02 K/mm3 (0.00-0.68); EOSINOPHILS PERCENT AUTO 0 % (0-6); Hematocrit 40.6 % (33.0-51.0); Hemoglobin 12.8 g/dL (11.5-16.0); IMMATURE GRAN ABSOLUTE AUTO 0.07 K/mm3 (0.00-0.10); IMMATURE GRAN PERCENT AUTO 0 % (0-1); LYMPHOCYTES ABSOLUTE AUTO 0.93 K/mm3 (0.84-5.20); LYMPHOCYTES PERCENT AUTO 6 % (21-46); MONOCYTES ABSOLUTE AUTO 0.25 K/mm3 (0.16-1.47); MONOCYTES PERCENT AUTO 2 % (4-13); Mean Corpuscular HGB 28.7 pg (26.0-34.0); Mean Corpuscular HGB Conc 31.5 g/dL (31.5-36.5); Mean Corpuscular Volume 91 fL (80-100); Mean Platelet Volume 9.1 fL (9.1-12.4); NEUTROPHILS ABSOLUTE AUTO 15.27 K/mm3 (1.96-9.15); NEUTROPHILS PERCENT AUTO 92 % (41-73); Platelet Count 338 K/mm3 (150-400); RDW Coefficient Variation 12.3 % (11.7-14.2); RDW Standard Deviation 41.1 fL (35.1-46.3); Red Blood Cell Count 4.46 M/mm3 (3.80-5.20); White Blood Cell Count 16.57 K/mm3 (4.00-11.30)
[2020-11-10 09:49] LABS: Source, Urine Clean Catch
[2020-11-10 09:53] LABS: Bilirubin, Urine Neg (Neg); Blood, Urine 2+ (Neg); Glucose Qualitative, Urine Neg (Neg); Ketones, Urine Neg (Neg); Leukocyte Esterase, Urine 2+ (Neg); Nitrite, Urine Pos (Neg); Protein, Urine Neg (Neg); Urobilinogen, Urine NORM (Normal)
[2020-11-10 09:59] LABS: Appearance, Urine Hazy (Clear); Color, Urine Yellow (P-Yellow)
[2020-11-10 09:59] LABS: Alanine Aminotransfer (ALT/SGP 14 U/L (12-78); Albumin, Blood 3.5 g/dL (3.4-5.0); Albumin/Globulin Ratio 0.9 (0.8-1.8); Alk Phos 91 U/L (50-136); Anion Gap 6 mmol/L (6-16); Aspartate Aminotrans (AST/SGOT 15 U/L (12-37); Bilirubin, Total 0.6 mg/dL (0.1-1.0); Blood Urea Nitrogen 13 mg/dL (8-24); Bun/Creatinine Ratio 20.3 (12.0-20.0); CO2, Blood 27 mmol/L (21-32); Chloride, Blood 107 mmol/L (98-108); Creatinine, Blood 0.64 mg/dL (0.40-1.00); Globulin, Blood 3.9 g/dL (2.2-4.0); Glomerular Filtration Rate >60 (60-); Glucose, Blood 120 mg/dL (70-99); Sodium, Blood 140 mmol/L (136-145); Total Protein, Blood 7.4 g/dL (6.4-8.2)
[2020-11-10 10:01] LABS: Bacteria Many /hpf; Squamous Epithelial Cells Few /hpf (Few)
[2020-11-10 10:41] LABS: Influenza A, PCR Negative (NEGATIVE); Influenza B, PCR Negative (NEGATIVE); Resp Syncytial Virus, PCR Negative (NEGATIVE); SARS-Cov-2 (COVID-19) PCR, MMC Negative (NEGATIVE)
[2020-11-10] MEDS ORDERED: FAMO10 PO (12:18)
[2020-11-10] MEDS ORDERED: LIDOCAINE1 EAC1 TOP (12:19)
[2020-11-10] MEDS ORDERED: AMBIEN5 MG PO (12:20)
--- NOTE | 2020-11-10 18:23 | NUR ---
PT ARRIVED AT 1325 AND WAS SETTLED INTO ROOM. PT IS AOX4 AND COOPERATIVE OF CARE. PT WAS AMBULATING WELL TO RESTROOM AND DID NOT REPORT DISCOMFORT AT THAT TIME. SHIFT HAS PROGRESSED PT DEMANDED SHE NEEDED A REGULAR DIET AND PT STATED SHE WOULD NOT EAT MECHANICAL SOFT. DR OSPINA WAS NOTIFIED AND STATED AFTER PT SEEMED OK TO DRINK WATER AND WAS NOT HAVING PROBLEMS TO GO AHEAD AND ORDER REGULAR DIET. PT ALSO BEGAN TO HAVE INCREASED NAUSEA AND WAS TREATED X2 AND DR OSPINA ALSO ADDED ANOTHER OPTION IF THIS DOES NOT HELP. PT ALSO HAD BEEN HAVING SMALL FORMED STOOLS WHICH HAVE NOW TURNED INTO LOOSE STOOL. PT HAS BEDSIDE COMMODE SHE IS GOING FREQUENTLY AT THIS TIME. CALL LIGHT IS WITHIN REACH WILL CONTINUE TO MONITOR.
--- NOTE | 2020-11-11 00:08 | NUR ---
11/10/20 PT RESTING COMFORTABLY IN BED; DENIES NAUSEA OR DIARRHEA AT MOMENT.
--- NOTE | 2020-11-11 03:50 | NUR ---
11/10/201999 PT RESTING COMFORTABLY IN BED; CHEERFUL; DENIES PAIN.
--- NOTE | 2020-11-11 05:04 | NUR ---
SHIFT SUMMARY: 70 Y/O FEMALE RESTED COMFORTABLY 1/2 SHIFT, PT C/O OCCASIONAL DIARRHEA (YELLOW) EPISODES THROUGHOUT SHIFT; PT DID HAVE NAUSEA BEGINNING OF SHIFT WIH ZOFRAN 4MG IVP GIVEN WITH GOOD RELIEF NOTED; DENIES PAIN; ALERT AND ORIENTED X 4; PT ABLE TO TRANSFER SELF FROM BED TO BSC WITHOUT ISSUE; BED LOW POSITION WITH CALL LIGHT AT SIDE; LUNG SOUNDS ARE DIMINISHED THROUGHOUT WITH NO COUGH NOTED WHILE WEARING O2 AT 2L/M PER NASAL CANNULA WITH O2 SATS > 92%.
[2020-11-11 05:27] LABS: BASOPHILS ABSOLUTE AUTO 0.04 K/mm3 (0.00-0.23); BASOPHILS PERCENT AUTO 0 % (0-2); EOSINOPHILS ABSOLUTE AUTO 0.03 K/mm3 (0.00-0.68); EOSINOPHILS PERCENT AUTO 0 % (0-6); Hematocrit 32.7 % (33.0-51.0); Hemoglobin 10.3 g/dL (11.5-16.0); IMMATURE GRAN ABSOLUTE AUTO 0.18 K/mm3 (0.00-0.10); IMMATURE GRAN PERCENT AUTO 1 % (0-1); LYMPHOCYTES ABSOLUTE AUTO 1.83 K/mm3 (0.84-5.20); LYMPHOCYTES PERCENT AUTO 7 % (21-46); MONOCYTES ABSOLUTE AUTO 0.78 K/mm3 (0.16-1.47); MONOCYTES PERCENT AUTO 3 % (4-13); Mean Corpuscular HGB 28.8 pg (26.0-34.0); Mean Corpuscular HGB Conc 31.5 g/dL (31.5-36.5); Mean Corpuscular Volume 91 fL (80-100); Mean Platelet Volume 9.5 fL (9.1-12.4); NEUTROPHILS ABSOLUTE AUTO 21.96 K/mm3 (1.96-9.15); NEUTROPHILS PERCENT AUTO 89 % (41-73); Platelet Count 307 K/mm3 (150-400); RDW Coefficient Variation 12.4 % (11.7-14.2); RDW Standard Deviation 41.2 fL (35.1-46.3); Red Blood Cell Count 3.58 M/mm3 (3.80-5.20); White Blood Cell Count 24.82 K/mm3 (4.00-11.30)
[2020-11-11 05:50] LABS: Anion Gap 4 mmol/L (6-16); Blood Urea Nitrogen 12 mg/dL (8-24); CO2, Blood 29 mmol/L (21-32); Calcium, Blood 8.7 mg/dL (8.5-10.1); Chloride, Blood 107 mmol/L (98-108); Creatinine, Blood 0.63 mg/dL (0.40-1.00); Glomerular Filtration Rate >60 (60-); Glucose, Blood 103 mg/dL (70-99); Potassium, Blood 3.7 mmol/L (3.5-5.5); Sodium, Blood 140 mmol/L (136-145)
--- NOTE | 2020-11-11 19:18 | NUR ---
END OF SHIFT SUMMARY: PATIENT REPORTED FEELING MUCH BETTER THIS AM. SHE WAS STABLE ON RA (SATTING 95%) AND DENIED SOB AT REST OF WITH AMBULATION. THROUGHOUT THE DAY PATIENT REPORTED INCREASINGLY FEELING UNWELL. SHE REPORTED A MINIMAL APPETITE BUT DENIED NAUSEA. PATIENT WAS ABLE TO GET SOME REST DURING THE AFTERNOON. BY THE END OF THE SHIFT, PATIENT MEDICATED FOR GENERALIZED PAIN (PATIENT REPORTS HX OF FIBROMYALGIA) AND NAUSEA. PATIENT CONTINUES TO BE STABLE ON HER FEET AND INDEPENDENT IN THE ROOM.
--- NOTE | 2020-11-12 03:41 | NUR ---
11/11/191999 PT VOICED SHE FEELS MUCH BETTER; DENIES DIARRHEA; VOIDING YELLOW FLUID; SLIGHT DECREASED APPETITE TODAY BUT OVERALL FEELS BETTER; EAGER TO RETURN HOME SOON; DENIES NAUSEA OR PAIN. 5 RESTING COMFORTABLY IN BED.
--- NOTE | 2020-11-12 04:07 | NUR ---
SHIFT SUMMARY: 70 Y/O FEMALE RESTED COMFORTABLY ALL SHIFT; DENIES PAIN OR NAUSEA; EAGER TO RETURN HOME; UP PER SELF TO BATHROOM AND BACK; NO O2 REQUIRED AT THIS TIME; PT DOES OCCASIONALLY TAKE NEBULIZER TREATMENT VIA RESPIRATORY THERAPY; LUNG SOUNDS ARE DIMINISHED THROUGHOUT; CONTACT PRECAUTIONS MAINTAINED; BED LOW POSITION WITH CALL LIGHT AT SIDE.
[2020-11-12 04:59] LABS: BASOPHILS ABSOLUTE AUTO 0.02 K/mm3 (0.00-0.23); BASOPHILS PERCENT AUTO 0 % (0-2); EOSINOPHILS ABSOLUTE AUTO 0.09 K/mm3 (0.00-0.68); EOSINOPHILS PERCENT AUTO 1 % (0-6); Hematocrit 29.9 % (33.0-51.0); Hemoglobin 9.5 g/dL (11.5-16.0); IMMATURE GRAN ABSOLUTE AUTO 0.05 K/mm3 (0.00-0.10); IMMATURE GRAN PERCENT AUTO 0 % (0-1); LYMPHOCYTES ABSOLUTE AUTO 1.74 K/mm3 (0.84-5.20); LYMPHOCYTES PERCENT AUTO 14 % (21-46); MONOCYTES ABSOLUTE AUTO 0.67 K/mm3 (0.16-1.47); MONOCYTES PERCENT AUTO 5 % (4-13); Mean Corpuscular HGB Conc 31.8 g/dL (31.5-36.5); Mean Corpuscular Volume 91 fL (80-100); Mean Platelet Volume 9.5 fL (9.1-12.4); NEUTROPHILS ABSOLUTE AUTO 9.92 K/mm3 (1.96-9.15); NEUTROPHILS PERCENT AUTO 79 % (41-73); Platelet Count 273 K/mm3 (150-400); RDW Coefficient Variation 12.5 % (11.7-14.2); RDW Standard Deviation 41.6 fL (35.1-46.3); Red Blood Cell Count 3.28 M/mm3 (3.80-5.20); White Blood Cell Count 12.49 K/mm3 (4.00-11.30)
[2020-11-12 05:43] LABS: Anion Gap 5 mmol/L (6-16); Blood Urea Nitrogen 9 mg/dL (8-24); Bun/Creatinine Ratio 13.2 (12.0-20.0); CO2, Blood 28 mmol/L (21-32); Calcium, Blood 8.6 mg/dL (8.5-10.1); Chloride, Blood 106 mmol/L (98-108); Creatinine, Blood 0.68 mg/dL (0.40-1.00); Glomerular Filtration Rate >60 (60-); Glucose, Blood 93 mg/dL (70-99); Potassium, Blood 3.4 mmol/L (3.5-5.5); Sodium, Blood 139 mmol/L (136-145)
[2020-11-12] MEDS ORDERED: BENZ100A PO (11:50)
[2020-11-12] MEDS ORDERED: Cleocin HCl150 MG PO (11:52)
[2020-11-12] MEDS ORDERED: Flonase 0.05% N16 GM (11:52)
[2020-11-12] MEDS ORDERED: FAMO20 PO (11:52)
[2020-11-12] MEDS ORDERED: VISBIOME PROBIOTIC PO (11:53)
[2020-11-12] MEDS ORDERED: ZOLP5 PO (11:53)
[2020-11-12] MEDS ORDERED: NITR100CA PO (11:54)
--- NOTE | 2020-11-12 13:08 | NUR ---
PT DISCHARGE TO HOME VIA WC. IV DCD. MEDICATIONS FAXED TO PHARMACY. PT EDUCATED ABOUT THE NEW MEDICATIONS AND EDUCATED ABOUT THE SIDE EFFECTS. PT ALSO INFORMED ABOUT THE UPCOMING PCP SCHEDULE FOR [facility]. PT AWARE. AND PT GIVEN ABX BEFORE DISCHARGE TOLERATED WELL. VSS.
== END 2020-11-12 12:57 | disposition home or self-care (01) | DRG 177 ==
LOC: ER 08:59 → MEDS 11:58
PROVIDERS: Emergency Medicine; ADMIT Family Medicine
DX: J69.0 Pneumonitis due to inhalation of food and vomit (principal); J96.01 Acute respiratory failure with hypoxia; N39.0 Urinary tract infection, site not specified; R19.7 Diarrhea, unspecified; K22.0 Achalasia of cardia; Z98.84 Bariatric surgery status; Z20.828 Contact with and (suspected) exposure to other viral communicable diseases; B96.20 Unspecified Escherichia coli [E. coli] as the cause of diseases classified elsewhere; Z87.891 Personal history of nicotine dependence; K21.9 Gastro-esophageal reflux disease without esophagitis; F32.9 Major depressive disorder, single episode, unspecified; F41.9 Anxiety disorder, unspecified; M79.7 Fibromyalgia
CPT/HCPCS: 0241U; 36415; 71045; 80048; 80053; 81001; 83605; 83690; 85025; 87077; 87086; 87186; 87493; 93005; 93010; 94640; 94760; 96365; 96367; 99285-25; A9270; A9270-GY; J0295; J0456; J0696; J1650; J2405; J7030; J7050

== ENCOUNTER 2021-01-31 12:51 | Emergency (ER) | payer MEDICARE, OTHER ==
[~2021-01-31] VITALS: Ht 157.5 cm; Wt 77.1 kg
[~2021-01-31 12:51] MED LIST changes: +AMBIEN5 MG PO; +Cleocin HCl150 MG PO; +FAMO10 PO; +FAMO20 PO; +LIDOCAINE1 EAC1 TOP; +VISBIOME PROBIOTIC PO; +ZOLP5 PO
[2021-01-31 13:26] LABS: BASOPHILS ABSOLUTE AUTO 0.02 K/mm3 (0.00-0.23); BASOPHILS PERCENT AUTO 0 % (0-2); EOSINOPHILS PERCENT AUTO 1 % (0-6); Hematocrit 39.7 % (33.0-51.0); Hemoglobin 12.8 g/dL (11.5-16.0); IMMATURE GRAN ABSOLUTE AUTO 0.04 K/mm3 (0.00-0.10); IMMATURE GRAN PERCENT AUTO 0 % (0-1); LYMPHOCYTES ABSOLUTE AUTO 0.78 K/mm3 (0.84-5.20); LYMPHOCYTES PERCENT AUTO 6 % (21-46); MONOCYTES ABSOLUTE AUTO 0.53 K/mm3 (0.16-1.47); MONOCYTES PERCENT AUTO 4 % (4-13); Mean Corpuscular HGB 28.4 pg (26.0-34.0); Mean Corpuscular HGB Conc 32.2 g/dL (31.5-36.5); Mean Corpuscular Volume 88 fL (80-100); Mean Platelet Volume 8.9 fL (9.1-12.4); NEUTROPHILS ABSOLUTE AUTO 12.08 K/mm3 (1.96-9.15); NEUTROPHILS PERCENT AUTO 89 % (41-73); Platelet Count 325 K/mm3 (150-400); RDW Coefficient Variation 12.6 % (11.7-14.2); RDW Standard Deviation 41.1 fL (35.1-46.3); White Blood Cell Count 13.55 K/mm3 (4.00-11.30)
[2021-01-31 13:40] LABS: Alanine Aminotransfer (ALT/SGP 17 U/L (12-78); Albumin, Blood 3.7 g/dL (3.4-5.0); Albumin/Globulin Ratio 0.9 (0.8-1.8); Alk Phos 87 U/L (50-136); Anion Gap 4 mmol/L (6-16); Aspartate Aminotrans (AST/SGOT 16 U/L (12-37); Bilirubin, Total 0.9 mg/dL (0.1-1.0); Blood Urea Nitrogen 12 mg/dL (8-24); Bun/Creatinine Ratio 18.2 (12.0-20.0); CO2, Blood 30 mmol/L (21-32); Calcium, Blood 9.5 mg/dL (8.5-10.1); Chloride, Blood 107 mmol/L (98-108); Creatinine, Blood 0.66 mg/dL (0.40-1.00); Globulin, Blood 4.1 g/dL (2.2-4.0); Glomerular Filtration Rate >60 (60-); Glucose, Blood 111 mg/dL (70-99); Potassium, Blood 3.9 mmol/L (3.5-5.5); Sodium, Blood 141 mmol/L (136-145); Total Protein, Blood 7.8 g/dL (6.4-8.2)
[2021-01-31 14:10] LABS: Source, Urine Clean Catch
[2021-01-31 14:15] LABS: Appearance, Urine Hazy (Clear); Blood, Urine 1+ (Neg); Color, Urine Yellow (P-Yellow); Glucose Qualitative, Urine Neg (Neg); Ketones, Urine Neg (Neg); Leukocyte Esterase, Urine 1+ (Neg); Nitrite, Urine Neg (Neg); Protein, Urine 1+ (Neg); Specific Gravity, Urine 1.015 (1.003-1.022); Urobilinogen, Urine 1+ (Normal)
[2021-01-31 14:42] LABS: Bilirubin, Urine 1+ (Neg)
[2021-01-31 14:43] LABS: Red Blood Cells, Urine 0-2 /hpf (0-2)
[2021-01-31 14:44] LABS: Amorphous Heavy (0-Heavy); Bacteria Few /hpf; Squamous Epithelial Cells Few /hpf (Few)
== END 2021-02-01 15:40 | disposition left against medical advice (07) ==
LOC: ER 12:51
PROVIDERS: Physician Assistant
DX: R11.2 Nausea with vomiting, unspecified (principal); K59.00 Constipation, unspecified; Z53.21 Procedure and treatment not carried out due to patient leaving prior to being seen by health care provider
CPT/HCPCS: 80053; 81001; 83690; 85025; 87086; 99283

== ENCOUNTER 2021-04-30 07:43 | Emergency (ER) | payer MEDICARE, OTHER ==
[~2021-04-30] VITALS: Ht 157.5 cm; Wt 76.2 kg
[2021-04-30 09:25] LABS: BASOPHILS ABSOLUTE AUTO 0.03 K/mm3 (0.00-0.23); BASOPHILS PERCENT AUTO 0 % (0-2); EOSINOPHILS ABSOLUTE AUTO 0.03 K/mm3 (0.00-0.68); EOSINOPHILS PERCENT AUTO 0 % (0-6); Hematocrit 36.3 % (33.0-51.0); Hemoglobin 11.7 g/dL (11.5-16.0); IMMATURE GRAN ABSOLUTE AUTO 0.12 K/mm3 (0.00-0.10); IMMATURE GRAN PERCENT AUTO 1 % (0-1); LYMPHOCYTES ABSOLUTE AUTO 0.57 K/mm3 (0.84-5.20); LYMPHOCYTES PERCENT AUTO 4 % (21-46); MONOCYTES PERCENT AUTO 6 % (4-13); Mean Corpuscular HGB 28.4 pg (26.0-34.0); Mean Corpuscular HGB Conc 32.2 g/dL (31.5-36.5); Mean Corpuscular Volume 88 fL (80-100); Mean Platelet Volume 9.1 fL (9.1-12.4); NEUTROPHILS ABSOLUTE AUTO 11.76 K/mm3 (1.96-9.15); NEUTROPHILS PERCENT AUTO 88 % (41-73); Platelet Count 299 K/mm3 (150-400); RDW Coefficient Variation 12.8 % (11.7-14.2); RDW Standard Deviation 41.3 fL (35.1-46.3); Red Blood Cell Count 4.12 M/mm3 (3.80-5.20); White Blood Cell Count 13.31 K/mm3 (4.00-11.30)
[2021-04-30 09:46] LABS: Alanine Aminotransfer (ALT/SGP 14 U/L (12-78); Albumin, Blood 3.3 g/dL (3.4-5.0); Albumin/Globulin Ratio 0.9 (0.8-1.8); Alk Phos 86 U/L (50-136); Anion Gap 6 mmol/L (6-16); Aspartate Aminotrans (AST/SGOT 15 U/L (12-37); Bilirubin, Total 0.5 mg/dL (0.1-1.0); Blood Urea Nitrogen 10 mg/dL (8-24); Bun/Creatinine Ratio 12.9 (12.0-20.0); CO2, Blood 25 mmol/L (21-32); Calcium, Blood 8.9 mg/dL (8.5-10.1); Chloride, Blood 107 mmol/L (98-108); Creatinine, Blood 0.78 mg/dL (0.40-1.00); Globulin, Blood 3.6 g/dL (2.2-4.0); Glomerular Filtration Rate >60 (60-); Glucose, Blood 101 mg/dL (70-99); Potassium, Blood 3.4 mmol/L (3.5-5.5); Sodium, Blood 138 mmol/L (136-145); Total Protein, Blood 6.9 g/dL (6.4-8.2)
[2021-04-30] MEDS ORDERED: AZIT250 PO (10:05)
[2021-04-30] MEDS ORDERED: CEFP200 PO (10:05)
== END 2021-04-30 10:33 | disposition home or self-care (01) ==
LOC: ER 07:43
PROVIDERS: Emergency Medicine
DX: J18.9 Pneumonia, unspecified organism (principal); K21.9 Gastro-esophageal reflux disease without esophagitis; Z88.6 Allergy status to analgesic agent; Z88.2 Allergy status to sulfonamides; Z88.1 Allergy status to other antibiotic agents; Z79.899 Other long term (current) drug therapy; Z91.041 Radiographic dye allergy status
CPT/HCPCS: 36415; 71045; 80053; 85025; 99285-25

== ENCOUNTER → 2021-05-21 | Outpatient (CLI) | payer MEDICARE, OTHER ==
[~2021-05-21] MED LIST changes: +AZIT250 PO
== END | disposition home or self-care (01) ==
LOC: LAB 17:32 → LAB SHORT 17:32
DX: N39.0 Urinary tract infection, site not specified (principal)
CPT/HCPCS: 87077; 87086; 87186

== ENCOUNTER 2021-06-18 05:35 | Inpatient (IN) | payer MEDICARE, OTHER ==
[~2021-06-18] VITALS: Ht 157.5 cm; Wt 77.1 kg
[~2021-06-18 05:35] MED LIST changes: -LEVALBUTER0.31 MG/1 INH; +LEVALBUTER1.25 MG/1 INH
[2021-06-18 06:13] LABS: BASOPHILS ABSOLUTE AUTO 0.02 K/mm3 (0.00-0.23); BASOPHILS PERCENT AUTO 0 % (0-2); EOSINOPHILS ABSOLUTE AUTO 0.02 K/mm3 (0.00-0.68); EOSINOPHILS PERCENT AUTO 0 % (0-6); Hematocrit 35.6 % (33.0-51.0); Hemoglobin 11.5 g/dL (11.5-16.0); IMMATURE GRAN ABSOLUTE AUTO 0.05 K/mm3 (0.00-0.10); IMMATURE GRAN PERCENT AUTO 0 % (0-1); LYMPHOCYTES ABSOLUTE AUTO 0.59 K/mm3 (0.84-5.20); LYMPHOCYTES PERCENT AUTO 4 % (21-46); MONOCYTES ABSOLUTE AUTO 0.55 K/mm3 (0.16-1.47); MONOCYTES PERCENT AUTO 4 % (4-13); Mean Corpuscular HGB 28.6 pg (26.0-34.0); Mean Corpuscular HGB Conc 32.3 g/dL (31.5-36.5); Mean Corpuscular Volume 89 fL (80-100); Mean Platelet Volume 9.2 fL (9.1-12.4); NEUTROPHILS ABSOLUTE AUTO 12.46 K/mm3 (1.96-9.15); NEUTROPHILS PERCENT AUTO 91 % (41-73); Platelet Count 318 K/mm3 (150-400); RDW Coefficient Variation 12.8 % (11.7-14.2); RDW Standard Deviation 42.1 fL (35.1-46.3); Red Blood Cell Count 4.02 M/mm3 (3.80-5.20); White Blood Cell Count 13.69 K/mm3 (4.00-11.30)
[2021-06-18 06:38] LABS: Alanine Aminotransfer (ALT/SGP 16 U/L (12-78); Albumin, Blood 3.3 g/dL (3.4-5.0); Albumin/Globulin Ratio 0.9 (0.8-1.8); Alk Phos 74 U/L (50-136); Anion Gap 5 mmol/L (6-16); Aspartate Aminotrans (AST/SGOT 19 U/L (12-37); Bilirubin, Total 0.7 mg/dL (0.1-1.0); Blood Urea Nitrogen 12 mg/dL (8-24); Bun/Creatinine Ratio 16.6 (12.0-20.0); CO2, Blood 27 mmol/L (21-32); Calcium, Blood 8.7 mg/dL (8.5-10.1); Chloride, Blood 105 mmol/L (98-108); Creatinine, Blood 0.72 mg/dL (0.40-1.00); Globulin, Blood 3.6 g/dL (2.2-4.0); Glomerular Filtration Rate >60 (60-); Glucose, Blood 124 mg/dL (70-99); Potassium, Blood 3.6 mmol/L (3.5-5.5); Sodium, Blood 137 mmol/L (136-145); Total Protein, Blood 6.9 g/dL (6.4-8.2); Troponin I <0.015 ng/mL (0.000-0.040)
[2021-06-18] MEDS ORDERED: ABILIFY2 MG PO (11:47)
[2021-06-18] MEDS ORDERED: CHLORPHENIRAMINE PO (11:47)
[2021-06-18] MEDS ORDERED: ATROVENT HFA12.9 GM INH (11:48)
[2021-06-18] MEDS ORDERED: OMEPRAZOLE20 M2 PO (11:48)
[2021-06-18] MEDS ORDERED: Simvastatin20 MG PO (11:48)
[2021-06-18] MEDS ORDERED: ZOLOFT100 M6 PO (11:49)
[2021-06-18] MEDS ORDERED: OMEGA-3 + D SO1 EACH PO (11:50)
[2021-06-18] MEDS ORDERED: [UNRECOGNIZED DRUG - CODE] PO (11:50)
[2021-06-18] MEDS ORDERED: HYDCHL25 PO (11:50)
[2021-06-18] MEDS ORDERED: PRAM.5 PO (11:50)
[2021-06-18] MEDS ORDERED: VITAMIN D31000 UNI1 PO (11:50)
[2021-06-18] MEDS ORDERED: VENL75ER PO (11:51)
[2021-06-18] MEDS ORDERED: ZOLPIDEM TARTRA10 MG PO (11:51)
[2021-06-18] MEDS ORDERED: LISINOPRIL2.5 MG PO (11:52)
[2021-06-18] MEDS ORDERED: TIOT18 INH (20:27)
[2021-06-18] MEDS ORDERED: LEVALBUTEROL TA15 G1 INH (20:28)
[2021-06-18] MEDS ORDERED: LEVALBUTER1.25 MG/1 INH (20:29)
[2021-06-18] MEDS ORDERED: DEXL60CA3 PO (20:31)
[2021-06-18 21:00] LABS: Source, Urine Clean Catch
[2021-06-18 21:05] LABS: Appearance, Urine Clear (Clear); Bilirubin, Urine Neg (Neg); Blood, Urine 1+ (Neg); Color, Urine Yellow (P-Yellow); Glucose Qualitative, Urine Neg (Neg); Ketones, Urine Neg (Neg); Leukocyte Esterase, Urine 1+ (Neg); Nitrite, Urine Neg (Neg); Protein, Urine 1+ (Neg); Specific Gravity, Urine 1.015 (1.003-1.022); Urobilinogen, Urine NORM (Normal)
[2021-06-18 21:16] LABS: Bacteria Mod /hpf; Red Blood Cells, Urine 0-2 /hpf (0-2); Squamous Epithelial Cells Mod /hpf (Few); White Blood Cells, Urine 0-2 /hpf (0-5)
[2021-06-19 04:25] LABS: BASOPHILS ABSOLUTE AUTO 0.01 K/mm3 (0.00-0.23); BASOPHILS PERCENT AUTO 0 % (0-2); EOSINOPHILS ABSOLUTE AUTO 0.17 K/mm3 (0.00-0.68); EOSINOPHILS PERCENT AUTO 2 % (0-6); Hematocrit 31.9 % (33.0-51.0); IMMATURE GRAN ABSOLUTE AUTO 0.03 K/mm3 (0.00-0.10); IMMATURE GRAN PERCENT AUTO 0 % (0-1); LYMPHOCYTES ABSOLUTE AUTO 2.17 K/mm3 (0.84-5.20); LYMPHOCYTES PERCENT AUTO 25 % (21-46); MONOCYTES ABSOLUTE AUTO 0.52 K/mm3 (0.16-1.47); MONOCYTES PERCENT AUTO 6 % (4-13); Mean Corpuscular HGB Conc 31.3 g/dL (31.5-36.5); Mean Corpuscular Volume 89 fL (80-100); Mean Platelet Volume 9.2 fL (9.1-12.4); NEUTROPHILS ABSOLUTE AUTO 5.71 K/mm3 (1.96-9.15); NEUTROPHILS PERCENT AUTO 66 % (41-73); Platelet Count 293 K/mm3 (150-400); RDW Coefficient Variation 12.9 % (11.7-14.2); RDW Standard Deviation 42.3 fL (35.1-46.3); Red Blood Cell Count 3.57 M/mm3 (3.80-5.20); White Blood Cell Count 8.61 K/mm3 (4.00-11.30)
[2021-06-19 04:47] LABS: Alanine Aminotransfer (ALT/SGP 15 U/L (12-78); Albumin, Blood 2.9 g/dL (3.4-5.0); Albumin/Globulin Ratio 0.8 (0.8-1.8); Alk Phos 64 U/L (50-136); Anion Gap 5 mmol/L (6-16); Aspartate Aminotrans (AST/SGOT 9 U/L (12-37); Bilirubin, Total 0.6 mg/dL (0.1-1.0); Blood Urea Nitrogen 12 mg/dL (8-24); Bun/Creatinine Ratio 14.6 (12.0-20.0); CO2, Blood 26 mmol/L (21-32); Calcium, Blood 8.7 mg/dL (8.5-10.1); Chloride, Blood 108 mmol/L (98-108); Creatinine, Blood 0.82 mg/dL (0.40-1.00); Globulin, Blood 3.6 g/dL (2.2-4.0); Glomerular Filtration Rate >60 (60-); Glucose, Blood 99 mg/dL (70-99); Potassium, Blood 3.5 mmol/L (3.5-5.5); Sodium, Blood 139 mmol/L (136-145); Total Protein, Blood 6.5 g/dL (6.4-8.2)
[2021-06-19] MEDS ORDERED: PANT40 PO (17:20)
[2021-06-19] MEDS ORDERED: Acetaminophen650 M1 PO (17:21)
[2021-06-19] MEDS ORDERED: AMOCLA875 PO (17:24)
[2021-06-19] MEDS ORDERED: ALPR.5 PO (17:26)
[2021-06-19] MEDS ORDERED: HYDR1TAB94 PO (17:26)
[2021-06-19] MEDS ORDERED: VISBIOME 112.51 EACH (17:34)
[2021-06-19] MEDS ORDERED: FLUC150A PO (17:37)
[2021-06-19] MEDS ORDERED: LOPE2C PO (17:38)
== END 2021-06-19 18:21 | disposition home or self-care (01) | DRG 871 ==
LOC: ER 05:35 → MEDS 09:10 → SURS 20:04
PROVIDERS: Emergency Medicine; ADMIT Internal Medicine
DX: A41.9 Sepsis, unspecified organism (principal); J69.0 Pneumonitis due to inhalation of food and vomit; J18.9 Pneumonia, unspecified organism; K90.9 Intestinal malabsorption, unspecified; M79.7 Fibromyalgia; F41.9 Anxiety disorder, unspecified; D50.9 Iron deficiency anemia, unspecified; G47.33 Obstructive sleep apnea (adult) (pediatric); G25.81 Restless legs syndrome; F32.9 Major depressive disorder, single episode, unspecified; M85.80 Other specified disorders of bone density and structure, unspecified site; K22.0 Achalasia of cardia; K21.9 Gastro-esophageal reflux disease without esophagitis; I27.20 Pulmonary hypertension, unspecified; Z87.891 Personal history of nicotine dependence; Z98.84 Bariatric surgery status; Z90.49 Acquired absence of other specified parts of digestive tract; Z88.1 Allergy status to other antibiotic agents; Z88.2 Allergy status to sulfonamides; Z91.041 Radiographic dye allergy status; Z91.048 Other nonmedicinal substance allergy status; Z90.710 Acquired absence of both cervix and uterus; Z90.89 Acquired absence of other organs; Z98.51 Tubal ligation status; Z98.890 Other specified postprocedural states; Z79.1 Long term (current) use of non-steroidal anti-inflammatories (NSAID); Z79.899 Other long term (current) drug therapy
CPT/HCPCS: 36415; 71045; 71046; 78582; 80053; 81001; 83605; 83880; 84484; 85025; 85379; 87040; 87086; 92526; 92610; 93005; 93010; 96365; 99285-25; A9270; A9540; J0696; J1650; J2405; J2543; J7030

== ENCOUNTER → 2021-07-25 | Outpatient (CLI) | payer MEDICARE, OTHER ==
[~2021-07-25] MED LIST changes: +ABILIFY2 MG PO; +AMOCLA875 PO; +ATROVENT HFA12.9 GM INH; +Acetaminophen650 M1 PO; +CHLORPHENIRAMINE PO; +FLUC150A PO; +LEVALBUTEROL TA15 G1 INH; +LOPE2C PO; +OMEGA-3 + D SO1 EACH PO; +OMEPRAZOLE20 M2 PO; +PANT40 PO; +Simvastatin20 MG PO; +TIOT18 INH; +VISBIOME 112.51 EACH; +VITAMIN D31000 UNI1 PO; +ZOLOFT100 M6 PO; +ZOLPIDEM TARTRA10 MG PO; +[UNRECOGNIZED DRUG - CODE] PO
== END | disposition home or self-care (01) ==
LOC: LAB SHORT 12:05 → LAB 12:05
DX: D48.5 Neoplasm of uncertain behavior of skin (principal); C44.722 Squamous cell carcinoma of skin of right lower limb, including hip
CPT/HCPCS: 88305

== ENCOUNTER → 2021-08-21 | Outpatient (CLI) | payer MEDICARE, OTHER | END | disposition home or self-care (01) | LOC: LAB SHORT 09:39 | DX: C44.722 Squamous cell carcinoma of skin of right lower limb, including hip (principal) | CPT/HCPCS: 88305 ==

== ENCOUNTER 2022-02-13 09:21 | Day surgery (SDC) | payer MEDICARE, OTHER ==
[~2022-02-13] VITALS: Ht 157.5 cm; Wt 76.4 kg
[~2022-02-13 09:21] MED LIST changes: +XOPENEX HFA15 GM INH
== END 2022-02-13 12:24 | disposition home or self-care (01) ==
LOC: ORSCSDS 09:21
PROVIDERS: Internal Medicine Gastroenterology
PROC: 0D758ZZ Dilation of Esophagus, Via Natural or Artificial Opening Endoscopic (ICD-10-PCS; principal; 2022-02-13 11:30)
PROC: 0DJD8ZZ Inspection of Lower Intestinal Tract, Via Natural or Artificial Opening Endoscopic (ICD-10-PCS; principal; 2022-02-13 11:30)
DX: R13.12 Dysphagia, oropharyngeal phase (principal); D50.9 Iron deficiency anemia, unspecified; Z98.84 Bariatric surgery status; K21.9 Gastro-esophageal reflux disease without esophagitis; K59.04 Chronic idiopathic constipation; I48.0 Paroxysmal atrial fibrillation; Z79.899 Other long term (current) drug therapy
CPT/HCPCS: 43249; G0121; C1726; J2704; J7120

== ENCOUNTER → 2022-07-01 | Outpatient (CLI) | payer MEDICARE, OTHER | END | disposition home or self-care (01) | LOC: LAB SHORT 12:42 → LAB 12:42 | DX: N39.0 Urinary tract infection, site not specified (principal) | CPT/HCPCS: 87077; 87086; 87186 ==

== ENCOUNTER → 2023-06-20 | Outpatient (CLI) | payer MEDICARE, OTHER | LOC: LAB 11:54 → LAB SHORT 11:54 | DX: M79.661 Pain in right lower leg (principal) | CPT/HCPCS: 85379 ==

== ENCOUNTER 2024-03-20 09:49 | Emergency (ER) | payer MEDICARE, OTHER ==
[~2024-03-20] VITALS: Ht 154.9 cm; Wt 80.7 kg
[2024-03-20] MEDS ORDERED: Lactated Ringer's 1,000 ML IV ONE (09:55)
[2024-03-20 10:40] LABS: BASOPHILS ABSOLUTE AUTO 0.06 K/mm3 (0.00-0.23); BASOPHILS PERCENT AUTO 0 % (0-2); EOSINOPHILS ABSOLUTE AUTO 0.01 K/mm3 (0.00-0.68); EOSINOPHILS PERCENT AUTO 0 % (0-6); Hematocrit 38.4 % (33.0-51.0); Hemoglobin 12.5 g/dL (11.5-16.0); IMMATURE GRAN ABSOLUTE AUTO 0.16 K/mm3 (0.00-0.10); IMMATURE GRAN PERCENT AUTO 1 % (0-1); LYMPHOCYTES ABSOLUTE AUTO 0.67 K/mm3 (0.84-5.20); LYMPHOCYTES PERCENT AUTO 4 % (21-46); MONOCYTES ABSOLUTE AUTO 0.84 K/mm3 (0.16-1.47); MONOCYTES PERCENT AUTO 4 % (4-13); Mean Corpuscular HGB 29.3 pg (26.0-34.0); Mean Corpuscular HGB Conc 32.6 g/dL (31.5-36.5); Mean Corpuscular Volume 90 fL (80-100); Mean Platelet Volume 8.9 fL (9.1-12.4); NEUTROPHILS ABSOLUTE AUTO 17.42 K/mm3 (1.96-9.15); NEUTROPHILS PERCENT AUTO 91 % (41-73); Platelet Count 341 K/mm3 (150-400); RDW Coefficient Variation 12.9 % (11.7-14.2); RDW Standard Deviation 41.8 fL (35.1-46.3); Red Blood Cell Count 4.27 M/mm3 (3.80-5.20); White Blood Cell Count 19.16 K/mm3 (4.00-11.30)
[2024-03-20 11:22] LABS: Albumin, Blood 3.5 g/dL (3.4-5.0); Bilirubin, Total 0.6 mg/dL (0.1-1.0); Bun/Creatinine Ratio 15.7 (12.0-20.0); Creatinine, Blood 0.76 mg/dL (0.40-1.00); Globulin, Blood 3.5 g/dL (2.2-4.0); Potassium, Blood 3.7 mmol/L (3.5-5.5)
[2024-03-20 11:30] VITALS: BP 111/49
[2024-03-20] MEDS ORDERED: Acetaminophen 500 MG Tab PO ONE (11:30)
[2024-03-20] MEDS ORDERED: Azithromycin 250 MG Tab PO ONE (12:15)
[2024-03-20] MEDS ORDERED: AZIT250 PO (12:57)
[2024-03-20] MEDS ORDERED: ONDA4ODT MM (12:57)
== END 2024-03-20 13:39 | disposition home or self-care (01) ==
LOC: ER 09:49
PROVIDERS: Emergency Medicine
DX: J18.9 Pneumonia, unspecified organism (principal); E86.0 Dehydration; Z88.6 Allergy status to analgesic agent; Z88.8 Allergy status to other drugs, medicaments and biological substances; Z88.2 Allergy status to sulfonamides; Z91.048 Other nonmedicinal substance allergy status; Z88.1 Allergy status to other antibiotic agents; Z91.041 Radiographic dye allergy status; Z79.899 Other long term (current) drug therapy; K21.9 Gastro-esophageal reflux disease without esophagitis; G47.33 Obstructive sleep apnea (adult) (pediatric); Z87.891 Personal history of nicotine dependence
CPT/HCPCS: 71046; 80053; 83690; 85025; A9270; J7120

== ENCOUNTER 2024-08-17 09:42 | Inpatient (IN) | payer MEDICARE, OTHER ==
[~2024-08-17] VITALS: Ht 157.5 cm; Wt 86.0 kg
[~2024-08-17 09:42] MED LIST changes: +Bentyl20 MG PO; +DOCU100; +METO50ER; +PRAMIPEXOLE DI0.5 M1 PO; +Prevacid Soluta30 MG PO
[2024-08-17] MEDS ORDERED: Acetaminophen 500 MG Tab PO ONE (09:50)
[2024-08-17] MEDS ORDERED: NS 1,000 ML IV SCH ×2 (09:50→10:25)
[2024-08-17 10:05] LABS: BASOPHILS ABSOLUTE AUTO 0.02 K/mm3 (0.00-0.23); BASOPHILS PERCENT AUTO 0 % (0-2); EOSINOPHILS ABSOLUTE AUTO 0.02 K/mm3 (0.00-0.68); EOSINOPHILS PERCENT AUTO 0 % (0-6); Hematocrit 40.5 % (33.0-51.0); Hemoglobin 13.4 g/dL (11.5-16.0); IMMATURE GRAN ABSOLUTE AUTO 0.04 K/mm3 (0.00-0.10); IMMATURE GRAN PERCENT AUTO 0 % (0-1); LYMPHOCYTES ABSOLUTE AUTO 0.55 K/mm3 (0.84-5.20); LYMPHOCYTES PERCENT AUTO 5 % (21-46); MONOCYTES ABSOLUTE AUTO 0.23 K/mm3 (0.16-1.47); MONOCYTES PERCENT AUTO 2 % (4-13); Mean Corpuscular HGB 29.3 pg (26.0-34.0); Mean Corpuscular HGB Conc 33.1 g/dL (31.5-36.5); Mean Corpuscular Volume 88 fL (80-100); Mean Platelet Volume 9.4 fL (9.1-12.4); NEUTROPHILS ABSOLUTE AUTO 11.04 K/mm3 (1.96-9.15); NEUTROPHILS PERCENT AUTO 93 % (41-73); Platelet Count 291 K/mm3 (150-400); RDW Coefficient Variation 12.8 % (11.7-14.2); RDW Standard Deviation 41.2 fL (35.1-46.3); Red Blood Cell Count 4.58 M/mm3 (3.80-5.20)
[2024-08-17] MEDS ORDERED: Albuterol 2.5 MG/3 ML VIAL INH ONE (10:20)
[2024-08-17] MEDS ORDERED: Ampicillin Sod/Sulbactam Sod 3 GM in NS 100 ML IV ONE (10:20)
[2024-08-17 10:32] LABS: Albumin, Blood 3.3 g/dL (3.4-5.0); Albumin/Globulin Ratio 0.8 (0.8-1.8); Bilirubin, Total 0.7 mg/dL (0.1-1.0); Bun/Creatinine Ratio 14.7 (12.0-20.0); Creatinine, Blood 0.75 mg/dL (0.40-1.00); Globulin, Blood 3.9 g/dL (2.2-4.0); Potassium, Blood 3.6 mmol/L (3.5-5.5); Total Protein, Blood 7.2 g/dL (6.4-8.2)
[2024-08-17 11:23] LABS: Influenza A, PCR NEGATIVE (NEGATIVE); Influenza B, PCR NEGATIVE (NEGATIVE); Resp Syncytial Virus, PCR NEGATIVE (NEGATIVE); SARS-Cov-2 (COVID-19) PCR, MMC NEGATIVE (NEGATIVE)
[2024-08-17] MEDS ORDERED: Acetaminophen 325 MG TABLET PO PRN (12:05)
[2024-08-17] MEDS ORDERED: Ondansetron HCl 2 MG / ML 2ML Vial IV PRN (12:05)
[2024-08-17] MEDS ORDERED: FLU VACC TS2024-25(6MOS UP)/PF 45 MCG/0.5 ML SYRINGE IM ONE (12:05)
[2024-08-17] MEDS ORDERED: Lactated Ringer's 1,000 ML IV SCH (15:35)
[2024-08-17 15:59] VITALS: BP 93/44
[2024-08-17] MEDS ORDERED: Ampicillin Sod/Sulbactam Sod 3 GM in NS 100 ML IV SCH (18:00)
--- NOTE | 2024-08-17 18:18 | NUR ---
SHIFT SUMMARY 1555 RECEIVED PT TO RM 306 VIA W/C FROM ER. PT ABLE TO TX SELF TO BED. PT ADMITTED FOR ASP PNM. PER REPORT, PT WOKE UP COUGHING DURING THE NIGHT, AND THEN ASPIRATING. SEPSIS PROTOCOL GIVEN IN ER. PT IS PLEASANT AND CO-OP, BUT VERY WEAK AND DOESN'T FEEL WELL. SBA TO BTHRM D/T WEAKNESS AT THIS TIME. NORMALLY INDEPENDENT AND DOES NOT USE CANE OR WALKER. NO C/O SOB. PT ON RA. RESTING QUIETLY AT THIS TIME. CALL LT IN REACH.
[2024-08-17] MEDS ORDERED: Albuterol 2.5 MG/3 ML VIAL INH PRN (19:40)
[2024-08-17] MEDS ORDERED: Prevacid Soluta30 MG PO (19:52)
[2024-08-17 20:22] VITALS: BP 112/52
[2024-08-17] MEDS ORDERED: Pramipexole DI-HCL 0.25 MG Tab PO SCH (21:00)
[2024-08-17] MEDS ORDERED: Lactobacil 2-S.Thermo-Bifido 1 1 Cap PO SCH (21:00)
--- NOTE | 2024-08-18 04:55 | NUR ---
MAINFRAME SYSTEMS PROGRAMMER SUMMARY PT HAS BEEN WEANED DOWN TO ROOM AIR. NO ACUTE CHANGES OVERNIGHT. LR @100. IV UNASYN. NRS ON TELE. VSS. MOBILIZES EASILY WITH SUPERVISION WITH SEVERE DYSPNEA. MED REC COMPLETED. ASPIRATION AND FALL PRECAUTIONS IN PLACE.
[2024-08-18 05:25] VITALS: BP 117/48
[2024-08-18] MEDS ORDERED: Pantoprazole Sodium 40 MG Tab PO SCH (06:00)
[2024-08-18 06:16] LABS: BASOPHILS ABSOLUTE AUTO 0.03 K/mm3 (0.00-0.23); BASOPHILS PERCENT AUTO 0 % (0-2); EOSINOPHILS ABSOLUTE AUTO 0.19 K/mm3 (0.00-0.68); EOSINOPHILS PERCENT AUTO 1 % (0-6); Hematocrit 30.4 % (33.0-51.0); Hemoglobin 9.9 g/dL (11.5-16.0); IMMATURE GRAN ABSOLUTE AUTO 0.05 K/mm3 (0.00-0.10); IMMATURE GRAN PERCENT AUTO 0 % (0-1); LYMPHOCYTES ABSOLUTE AUTO 1.57 K/mm3 (0.84-5.20); LYMPHOCYTES PERCENT AUTO 11 % (21-46); MONOCYTES ABSOLUTE AUTO 0.72 K/mm3 (0.16-1.47); MONOCYTES PERCENT AUTO 5 % (4-13); Mean Corpuscular HGB 29.2 pg (26.0-34.0); Mean Corpuscular HGB Conc 32.6 g/dL (31.5-36.5); Mean Corpuscular Volume 90 fL (80-100); Mean Platelet Volume 10.4 fL (9.1-12.4); NEUTROPHILS PERCENT AUTO 82 % (41-73); Platelet Count 254 K/mm3 (150-400); RDW Coefficient Variation 13.2 % (11.7-14.2); RDW Standard Deviation 43.1 fL (35.1-46.3); Red Blood Cell Count 3.39 M/mm3 (3.80-5.20); White Blood Cell Count 14.36 K/mm3 (4.00-11.30)
[2024-08-18 07:07] LABS: Bun/Creatinine Ratio 18.3 (12.0-20.0); Calcium, Blood 8.2 mg/dL (8.5-10.1); Creatinine, Blood 0.77 mg/dL (0.40-1.00); Potassium, Blood 3.7 mmol/L (3.5-5.5)
[2024-08-18 07:25] VITALS: BP 128/56
[2024-08-18] MEDS ORDERED: Enoxaparin 40 MG/0.4 ML SYR SC SCH (09:00)
[2024-08-18] MEDS ORDERED: Pramipexole DI-HCL 0.25 MG Tab PO SCH (09:00)
[2024-08-18] MEDS ORDERED: Metoprolol Succinate 50 MG TABCR PO SCH (09:00)
[2024-08-18 15:17] VITALS: BP 137/69
[2024-08-18] MEDS ORDERED: VENL37.5ER PO (16:21)
--- NOTE | 2024-08-18 16:51 | NUR ---
PT IS A/OX4, PLEASANT AND COOPERATIVE. THE PT IS UP WITH MINIMAL STAND BY ASSIST. FINE CRACKLES HEARD IN LEFT LUNG LOBES, PT APPEARS TO BE BREATHING EASILY ON RA. PT REPORTS SOB AND WEAKNESS WITH ACTIVITY. PT WAS MEDICATED FOR N/V X1 TODAY. PT HAD APROX 150 CC EMISIS. THIS EVENING THE PT WAS MEDICATED WITH TYLENOL FOR TEMP OF 100.8, RECHECK TEMP IS 98.9. PT REPORTED A LOOSE STOOL THIS AFTERNOON. CALL LIGHT IN REACH
[2024-08-18 19:29] VITALS: BP 147/59
[2024-08-18 19:31] VITALS: BP 147/59
[2024-08-18] MEDS ORDERED: NS 250 ML IV PRN (23:35)
[2024-08-19 02:35] VITALS: BP 144/57
--- NOTE | 2024-08-19 03:15 | NUR ---
SHIFT SUMMARY PT IS A&O X4, ABLE TO MAKE HER NEEDS KNOWN, PLEASANT AND COOPERATIVE WITH CARE. NO ACUTE EVENTS DURING THIS SHIFT. PRN ZOFRAN ADMINISTERED X1 FOR C/O NAUSEA AFTER DINNER. PT DENIES PAIN. IV ABX INFUSED ORDERED. BED AT THE LOWEST POSITION, CALL LIGHT W/I REACH.
[2024-08-19 05:19] LABS: BASOPHILS ABSOLUTE AUTO 0.04 K/mm3 (0.00-0.23); BASOPHILS PERCENT AUTO 0 % (0-2); EOSINOPHILS PERCENT AUTO 2 % (0-6); Hematocrit 33.2 % (33.0-51.0); Hemoglobin 10.3 g/dL (11.5-16.0); IMMATURE GRAN ABSOLUTE AUTO 0.04 K/mm3 (0.00-0.10); IMMATURE GRAN PERCENT AUTO 0 % (0-1); LYMPHOCYTES ABSOLUTE AUTO 1.49 K/mm3 (0.84-5.20); LYMPHOCYTES PERCENT AUTO 14 % (21-46); MONOCYTES ABSOLUTE AUTO 0.74 K/mm3 (0.16-1.47); MONOCYTES PERCENT AUTO 7 % (4-13); Mean Corpuscular HGB 29.1 pg (26.0-34.0); Mean Corpuscular Volume 94 fL (80-100); Mean Platelet Volume 9.8 fL (9.1-12.4); NEUTROPHILS ABSOLUTE AUTO 7.99 K/mm3 (1.96-9.15); NEUTROPHILS PERCENT AUTO 76 % (41-73); Platelet Count 220 K/mm3 (150-400); RDW Coefficient Variation 12.7 % (11.7-14.2); RDW Standard Deviation 44.1 fL (35.1-46.3); Red Blood Cell Count 3.54 M/mm3 (3.80-5.20)
[2024-08-19 06:07] LABS: Bun/Creatinine Ratio 13.6 (12.0-20.0); Calcium, Blood 8.6 mg/dL (8.5-10.1); Creatinine, Blood 0.66 mg/dL (0.40-1.00); Potassium, Blood 3.7 mmol/L (3.5-5.5)
[2024-08-19 07:46] VITALS: BP 137/63
[2024-08-19] MEDS ORDERED: Cholecalciferol 1000 Unit Tablet (=25MCG) PO SCH (09:00)
[2024-08-19] MEDS ORDERED: Venlafaxine HCl 37.5 MG CapCR PO SCH (09:00)
[2024-08-19] MEDS ORDERED: VISBIOME 112.51 EACH PO (11:39)
[2024-08-19] MEDS ORDERED: AMOX-CLAV 875-1 EAC5 PO (11:40)
--- NOTE | 2024-08-19 12:24 | NUR ---
SUMMARY/DISCHARGE PT DISCHARGED TO HOME, PT VERBALIZED UNDERSTANDING OF DISCHARGE INSTRUCTIONS REGARDING MEDICATIONS AND FOLLOW UP APPOINTMENT, PT TAKEN TO THE ELEVATOR VIA WHEELCHAIR BY THE CLINIC CMA
== END 2024-08-19 12:10 | disposition home or self-care (01) | DRG 871 ==
LOC: ER 09:42 → ERHOLD 12:02 → MEDS 15:50 → ENPENDDIS 08-19 10:45 → MEDS 08-19 12:10
PROVIDERS: Physician Assistant; Student in an Organized Health Care Education/Training Program; ADMIT Family Medicine
DX: A41.9 Sepsis, unspecified organism (principal); J18.9 Pneumonia, unspecified organism; J69.0 Pneumonitis due to inhalation of food and vomit; J96.01 Acute respiratory failure with hypoxia; R65.20 Severe sepsis without septic shock; M79.7 Fibromyalgia; F32.A Depression, unspecified; F41.9 Anxiety disorder, unspecified; K21.9 Gastro-esophageal reflux disease without esophagitis; D50.9 Iron deficiency anemia, unspecified; Z66 Do not resuscitate; G25.81 Restless legs syndrome; G47.33 Obstructive sleep apnea (adult) (pediatric); Z88.1 Allergy status to other antibiotic agents; Z91.041 Radiographic dye allergy status; Z88.5 Allergy status to narcotic agent; Z88.2 Allergy status to sulfonamides; Z88.8 Allergy status to other drugs, medicaments and biological substances; Z91.048 Other nonmedicinal substance allergy status; Z99.81 Dependence on supplemental oxygen; Z86.19 Personal history of other infectious and parasitic diseases; Z98.84 Bariatric surgery status; Z90.710 Acquired absence of both cervix and uterus; Z98.890 Other specified postprocedural states; Z98.51 Tubal ligation status; Z87.891 Personal history of nicotine dependence; Z79.899 Other long term (current) drug therapy
CPT/HCPCS: 0241U; 36415; 71046; 80048; 80053; 83605; 83690; 84145; 85025; 87040; 93005; 93010; 94640; 94664; 94760; 96365; 99285-25; A9270; J0295; J1650; J2405; J7030; J7120

== ENCOUNTER 2025-07-07 12:06 | Emergency (ER) | payer MEDICARE, OTHER ==
[~2025-07-07] VITALS: Ht 157.5 cm; Wt 90.7 kg
[~2025-07-07 12:06] MED LIST changes: +AMOX-CLAV 875-1 EAC5 PO; +VISBIOME 112.51 EACH PO
[2025-07-07 12:24] LABS: BASOPHILS ABSOLUTE AUTO 0.02 K/mm3 (0.00-0.23); BASOPHILS PERCENT AUTO 0 % (0-2); EOSINOPHILS ABSOLUTE AUTO 0.03 K/mm3 (0.00-0.68); EOSINOPHILS PERCENT AUTO 0 % (0-6); Hematocrit 40.1 % (33.0-51.0); Hemoglobin 13.3 g/dL (11.5-16.0); IMMATURE GRAN ABSOLUTE AUTO 0.09 K/mm3 (0.00-0.10); IMMATURE GRAN PERCENT AUTO 1 % (0-1); LYMPHOCYTES ABSOLUTE AUTO 0.88 K/mm3 (0.84-5.20); LYMPHOCYTES PERCENT AUTO 6 % (21-46); MONOCYTES ABSOLUTE AUTO 0.50 K/mm3 (0.16-1.47); MONOCYTES PERCENT AUTO 3 % (4-13); Mean Corpuscular HGB Conc 33.2 g/dL (31.5-36.5); Mean Corpuscular Volume 91 fL (80-100); NEUTROPHILS ABSOLUTE AUTO 13.41 K/mm3 (1.96-9.15); NEUTROPHILS PERCENT AUTO 90 % (41-73); NRBC ABSOLUTE 0.00 K/mm3 (0.00-0.02); NRBC Auto 0.0 /100 WBC (0.0-0.2); Platelet Count 279 K/mm3 (150-400); RDW Coefficient Variation 12.4 % (11.7-14.2); RDW Standard Deviation 40.8 fL (35.1-46.3)
[2025-07-07 12:42] LABS: Alanine Aminotransfer (ALT/SGP 16.0 U/L (12-78); Albumin, Blood 3.5 g/dL (3.4-5.0); Albumin/Globulin Ratio 0.9 (0.8-1.8); Anion Gap 7.0 mmol/L (3-11); Aspartate Aminotrans (AST/SGOT 19.0 U/L (12-37); Bilirubin, Total 0.5 mg/dL (0.1-1.0); Blood Urea Nitrogen 11.0 mg/dL (8-24); CO2, Blood 26.0 mmol/L (21-32); Calcium, Blood 8.6 mg/dL (8.5-10.1); Chloride, Blood 105.0 mmol/L (98-108); Creatinine, Blood 0.8 mg/dL (0.40-1.00); Globulin, Blood 4.0 g/dL (2.2-4.0); Glucose, Blood 93.0 mg/dL (70-99); Potassium, Blood 4.3 mmol/L (3.5-5.5); Sodium, Blood 134.0 mmol/L (136-145); Total Protein, Blood 7.5 g/dL (6.4-8.2)
[2025-07-07 12:48] LABS: Source, Urine Clean Catch
[2025-07-07 12:53] LABS: Bilirubin, Urine Neg (Neg); Color, Urine Yellow (P-Yellow); Glucose Qualitative, Urine Neg (Neg); Ketones, Urine Neg (Neg); Leukocyte Esterase, Urine 1+ (Neg); Protein, Urine Neg (Neg); Specific Gravity, Urine 1.010 (1.003-1.022); Urobilinogen, Urine NORM (Normal)
[2025-07-07 13:15] LABS: Red Blood Cells, Urine 0-2 /hpf (0-2); White Blood Cells, Urine 0-2 /hpf (0-5)
[2025-07-07 14:14] LABS: CORONAVIRUS COVID-19 AG Negative (NEGATIVE)
[2025-07-07] MEDS ORDERED: DiphenhydrAMINE HCl 50 MG/ML 1ML Vial IV ONE (16:00)
[2025-07-07] MEDS ORDERED: PRED FORTE5 M1 BOTHEYES (18:23)
[2025-07-07] MEDS ORDERED: AMOCLA875 PO (18:44)
[2025-07-07 19:00] VITALS: BP 127/65
== END 2025-07-07 19:31 | disposition home or self-care (01) ==
LOC: ER 12:06
PROVIDERS: Emergency Medicine
DX: J69.0 Pneumonitis due to inhalation of food and vomit (principal); K21.9 Gastro-esophageal reflux disease without esophagitis; G47.33 Obstructive sleep apnea (adult) (pediatric); Z87.891 Personal history of nicotine dependence; Z79.899 Other long term (current) drug therapy; Z88.6 Allergy status to analgesic agent; Z88.2 Allergy status to sulfonamides; Z91.041 Radiographic dye allergy status; Z88.1 Allergy status to other antibiotic agents; Z88.8 Allergy status to other drugs, medicaments and biological substances
CPT/HCPCS: 71046; 71260; 80053; 81001; 83880; 84484; 85025; 85379; 87077; 87086; 87186; 87428-QW; 93005; 93010; 93971; 96374-59; 96375-59; 99285-25; A9270; J1200; J2919; Q9967